=== PATIENT | female | born 1930 | race African-American/Black ===

== ENCOUNTER 2017-09-23 17:41 | Inpatient (IN) | payer MEDICARE, OTHER ==
--- NOTE | 2017-09-23 19:02 | ED Physician Chart ---
ED Chief Complaint/HPI - Patient Information Date Seen:: 09/23/17 Time Seen:: 18:35 Chief Complaint:: Agitation History of Present Illness:: onset x 2 days of agitation; no report of trauma, SIs, H/As, neck pain, C/P, SOB , Abd. Pain, A/N/V/D/C, fevsr, chills, or urinary s/s Allergies:: Allergies Allergy/AdvReac Type Severity Reaction Status Date / Time Penicillins Allergy Verified 09/23/17 18:42 Vitals:: Vital Signs - 8 hr 09/23/17 18:35 Temp 98.3 F HR 62 RR 16 BP 103/48 O2 Sat % 97 Historian:: Patient, EMS Review:: Nurse's Note Reviewed, Old Chart Reviewed, EMS run form Reviewed ED Review of Systems - Review of Systems General/Constitutional: No fever, No chills, No weight loss, No weakness, No diaphoresis, No edema, No loss of appetite Skin: No skin lesions, No rash, No bruising Head: No headache, No light-headedness Eyes: No loss of vision, No pain, No diplopia ENT: No earache, No nasal drainage, No sore throat, No tinnitus Neck: No neck pain, No swelling, No thyromegaly, No stiffness, No mass noted Cardio Vascular: No chest pain, No palpitations, No PND, No orthopnea, No edema Pulmonary: No SOB, No cough, No sputum, No wheezing GI: No nausea, No vomiting, No diarrhea, No pain, No melena, No hematochezia, No constipation, No hematemesis G/U: No dysuria, No frequency, No hematuria, No nacturia 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: No vaginal discharge, No abnormal vaginal bleed, No contraction Musculoskeletal: No bone or joint pain, No back pain, No muscle pain Endocrine: No polyuria, No polydipsia Psychiatric: Prior psych history, Depression, Anxiety, No suicidal ideation, No homicidal ideation, No auditory hallucination, No visual hallucination Hematopoietic: No bruising, No lymphadenopathy Allergic/Immuno: No urticaria, No angioedema Neurological: No syncope, No focal symptoms, No weakness, No paresthesia, No headache, No seizure, No dizziness, No confusion, No vertigo ED Past Medical History - Past Medical History Obtainable: Yes Past Medical History: HTN, Dyslipidemia, Arthritis Family History: HTN Social History: Non Smoker, No Alcohol, No Drug Use, , Care Facility Surgical History: None Psychiatricy History: Depression, Bipolar Medication: Reviewed Family Medical History - Family Member Mother History Unknown: Yes Ethnicity: Non- Living Status: Hx Family Cancer: No Hx Family Coronary Artery Disease: No Hx Family Congestive Heart Failure: No Hx Family Hypertension: No Hx Family Stroke: No Hx Family Diabetes: No Hx Family Seizures: No Hx Family Dementia: No Hx Family AIDS: No Hx Family HIV: No Hx Family COPD: No Hx Family Hepatitis: No Hx Family Psychiatric Problems: No Hx Family Tuberculosis: No ED Physical Exam - Physical Examination General/Constitutional: Awake, Well-developed, well-nourished, Alert, No distress, GCS 15, Non-toxic appearing, Ambulatory Head: Atraumatic Eyes: Lids, conjuctiva normal, PERRL, EOMI Skin: Nl inspection, No rash, No skin lesions, No ecchymosis, Well hydrated, No lymphadenopathy ENMT: External ears, nose nl, TM canals nl, Nasal exam nl, Lips, teeth, gums nl , Oropharynx nl, Tonsils nl Neck: Nontender, Full ROM w/o pain, No JVD, No nuchal rigidity, No bruit, No mass, No stridor Respiratory: Nl effort/Exclusion, Clear to Auscultation, No Wheeze/Rhonchi/Rales Cardio Vascular: RRR, No murmur, gallop, rubs, NL S1 S2, Carotid/Femoral/Distal pulses equal bilaterally GI: No tenderness/rebounding/guarding, No organomegaly, No hernia, Normal BS's, Nondistended, No mass/bruits, No McBurney tenderness : No CVA tenderness Extremities: No tenderness or effusion, Full ROM, normal strength in all extremities, No edema, Normal digits & nails Neuro/Psych: Alert/oriented, DTR's symmetric, Normal sensory exam, Normal motor strength, Judgement/insight normal, Mood normal, Normal gait, No focal deficits Other Neuro/Psych comments:: + Psychomotor Agitation; no SIs; Mood/Affect: Labile Misc: Normal back, No paraspinal tenderness ED Septic Shock - . Is Septic Shock (SBP<90, OR Lactate>4 mmol\L) present?: No - <6hrs of presentation: Vital Signs: Vital Signs - 8 hr 09/23/17 18:35 Temp 98.3 F HR 62 RR 16 BP 103/48 O2 Sat % 97 ED Reassessment (Disposition) - Diagnosis Diagnosis:: Agitation
[2017-09-23 19:23] LABS: % BASOPHILS 0.3 % (0.0-2.0); % EOSINOPHILS 4.4 % (0.0-5.0); % LYMPHOCYTES 27.3 % (20.0-50.0); % MONOCYTES 6.9 % (2.0-10.0); % NEUTROPHILS 61.1 % (40.0-80.0); EOSINOPHILE ABSOLUTE 0.3 Th/cmm (0.1-0.4); HEMATOCRIT 36.7 % (41.0-60); HEMOGLOBIN 12.6 gm/dL (12-16); LYMPHOCYTE ABSOLUTE 1.7 Th/cmm (1.5-3.0); MEAN CELL VOLUME 91.6 fl (81-100); MEAN CORPUSCULAR HEMOGLOBIN 31.4 pg (27.0-31.0); MEAN CORPUSCULAR HGB CONC 34.3 pg (28.0-36.0); MEAN PLATELET VOLUME 8.6 fl; MONOCYTE ABSOLUTE 0.4 Th/cmm (0.3-1.0); NEUTROPHILE ABSOLUTE 3.8 Th/cmm (1.8-8.0); PLATELET COUNT 246 Th/cmm (150-400); RED BLOOD COUNT 4.01 Mil/cmm (3.80-5.20); RED CELL DISTRIBUTION WIDTH 14.1 % (11.5-20.0); WHITE BLOOD COUNT 6.2 Th/cmm (4.8-10.8)
[2017-09-23 19:40] LABS: ACETAMINOPHEN < 10.0 ug/mL (10.0-30.0); ALB/GLOB RATIO 1.1 (1.0-1.8); ALBUMIN 3.6 gm/dL (3.7-5.3); ALKALINE PHOSPHATASE 63 U/L (34-104); ANION GAP 12.7 (7.0-16.0); BILIRUBIN,TOTAL 0.4 mg/dL (0.3-1.0); BUN - UREA NITROGEN 36 mg/dL (7-25); CALCIUM SERUM 9.4 mg/dL (8.6-10.3); CARBON DIOXIDE 23.1 mEq/L (21.0-31.0); CHLORIDE 107 mEq/L (98-107); CHOLESTEROL 197 mg/dL (<200); CREATININE - SERUM 1.4 mg/dL (0.6-1.2); GLUCOSE 140 mg/dL (70-105); HDL -HIGH DENSITY LIPOPROTEIN 43 mg/dL (23-92); POTASSIUM SERUM 4.8 mEq/L (3.5-5.1); SALICYLATES (ASPIRIN) < 25.0 mg/L (30.0-100.0); SGOT 11 U/L (13-39); SGPT/ALT 8 U/L (7-52); SODIUM SERUM 138 mEq/L (136-145); TOTAL PROTEIN,SERUM 6.8 gm/dL (6.0-8.3); TRIGLYCERIDES 94 mg/dL (<150)
[2017-09-23 20:30] LABS: A1C % 5.8 % (4.0-6.0)
[2017-09-23 21:48] VITALS: BP 109/48
[2017-09-23] MEDS ORDERED: Maalox 30 mL Cup PO PRN (21:52)
[2017-09-23] MEDS ORDERED: Magnesium Hydroxide (MOM) 30 mL UDC PO PRN (21:52)
[2017-09-24] MEDS: Aspirin 325 mg EC PO SCH (08:41)
[2017-09-24] MEDS: Multivitamin Tab PO SCH (08:41)
[2017-09-24] MEDS: Escitalopram Oxalate 5 mg Tab PO SCH (11:00)
--- NOTE | 2017-09-24 16:52 | Psychosocial Evaluation ---
DATE OF SERVICE: 09/24/2017 IDENTIFYING DATA: The patient an 87-year-old -[place] woman, resident of [facility]. Information obtained by directly interviewing the patient as well as reviewing the admission papers and they are reliable. JUSTIFICATION FOR HOSPITALIZATION: The patient is admitted here on a voluntary basis in view of her aggressive and disruptive behavior. CHIEF COMPLAINT: "I'm okay now." HISTORY OF PRESENT ILLNESS: This is the one of multiple psychiatric hospitalizations for this patient who is known to me from the previous psychiatric hospitalizations and treatments. The patient was last here in 2016 and the patient has been diagnosed to have psychosis and is being followed up by Dr. Small on an outpatient basis. The patient has been reported to have been doing fairly well, but for the past couple of weeks, the patient has been getting agitated, screaming and yelling. Prior to the hospitalization, the patient has been on Lexapro and Risperdal. The patient's sleep and appetite prior to the hospitalization are reported to be poor. The patient is getting easily agitated. PAST PSYCHIATRIC HISTORY: Please refer to the above. MEDICAL HISTORY: Physical examination is requested to be done by Dr. Duffy. SUBSTANCE ABUSE HISTORY: None. LEGAL PROBLEMS: None at this time. STRENGTH AND ASSETS: The patient is motivated. MENTAL STATUS EXAMINATION: The patient is an 87-year-old woman looking her stated age, thin built, cooperative. Eye contact is poor. Mood is noted to be irritable. Affect is constricted. The patient has been stating that she is okay now, but the patient is reported to have been very agitated and disruptive prior to being in the hospital. The patient has paranoia, but denies any command hallucinations at this time. The patient is having difficult time to cope with the stress. The patient is alert and awake. The patient's short and long-term are noted to be impaired. The patient has been reported to be screaming and yelling and getting easily agitated and could not be contained at a lower level of care. DIAGNOSES: AXIS I: 1. Psychotic disorder, not otherwise specified. 2. 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 AXIS II: None. AXIS III: As per Dr. Duffy. IMMEDIATE TREATMENT PLAN: The patient is going to be observed on the inpatient unit. Provided with supportive psychotherapy. The patient is going to be closely monitored. Will be continued on the antidepressant, antipsychotic medications. ESTIMATED LENGTH OF STAY: 3-5 days. DISCHARGE CRITERIA: When she no longer a threat to self or others and be able to cope up with the stress. JOB# [id number]
--- NOTE | 2017-09-24 17:31 | History and Physical ---
History of Present Illness - HPI Chief Complaint: agitation HPI: This is a 87 year old female who is a jail resident [facility] to the geropsych unit due [facility] the jail. Vital Signs: Last Vital Signs Temp 97.6 F 09/24/17 15:46 Pulse 60 09/24/17 15:46 Resp 20 09/24/17 15:46 BP 138/57 09/24/17 15:46 Pulse Ox 97 09/24/17 15:46 Past Medical History Other History: HTN, Dyslipidemia, Arthritis Family Medical History - Family Member Mother History Unknown: Yes Ethnicity: Non- Living Status: Hx Family Cancer: No Hx Family Coronary Artery Disease: No Hx Family Congestive Heart Failure: No Hx Family Hypertension: No Hx Family Stroke: No Hx Family Diabetes: No Hx Family Seizures: No Hx Family Dementia: No Hx Family AIDS: No Hx Family HIV: No Hx Family COPD: No Hx Family Hepatitis: No Hx Family Psychiatric Problems: No Hx Family Tuberculosis: No Social History Smoke: No Alcohol: None Drugs: None Lives: [facility] - Medications Home Medications: Home Medication Medication Instructions Recorded Type Acetaminophen [Tylenol 8 Hour] 650 mg PO Q4H PRN 04/22/15 History Al Hyd/Mg Hyd/Simethicone [Maalox] 30 ml PO Q4HR PRN 04/22/15 History Bisacodyl [Dulcolax 10 Mg Supp] 10 mg RC DAILY PRN 04/22/15 History Magnesium Hydroxide [Milk of 30 ml PO PRN PRN 04/22/15 History Magnesia] Escitalopram Oxalate [Lexapro] 5 mg PO DAILY #0 tab 12/22/15 Rx Lorazepam [Ativan] 0.5 mg PO Q4H PRN #0 tab 12/22/15 Rx Multivitamin [Theragran] 1 tab PO DAILY #0 12/22/15 Rx Multivitamin [Theragran] 1 tab PO DAILY #0 tab 12/22/15 Rx risperiDONE [RisperDAL] 0.5 mg PO BID #0 12/22/15 Rx Aspirin [Ecotrin] 1 tab PO DAILY 09/23/17 History - Allergies Allergies/Adverse Reactions: Allergies Allergy/AdvReac Type Severity Reaction Status Date / Time Penicillins Allergy Verified 09/23/17 18:42 Review of Systems - Review of Systems Constitutional: Report: No Significant Eyes: Report: No Significant Respiratory: Report: No Significant Cardiovascular: Report: No Significant Neurological: Report: No Significant Physical Exam - Physical Exam HEENT: Report: Ears Nose Throat within normal limits Neck: Report: Within normal limits Cardiovascular Systems: Report: +s1/s2 noted, Regular, Rate and Rhythm Respiratory: Report: Breath Sounds are within normal limits Abdomen: Report: Non-tender to palpation Skin: Report: Color of skin is within normal limits - Lab Results All Lab Results last 24 hours: Laboratory Results - last 24 hr 09/23/17 09/23/17 09/23/17 19:15 19:15 19:15 WBC 6.2 RBC 4.01 Hgb 12.6 Hct 36.7 L MCV 91.6 MCH 31.4 H MCHC Differential 34.3 RDW 14.1 Plt Count 246 MPV 8.6 Neutrophils % 61.1 Lymphocytes % 27.3 Monocytes % 6.9 Eosinophils % 4.4 Basophils % 0.3 Sodium 138 Potassium 4.8 Chloride 107 Carbon Dioxide 23.1 Anion Gap 12.7 BUN 36 H Creatinine 1.4 H Est GFR ( Amer) TNP Est GFR (Non-Af Amer) TNP BUN/Creatinine Ratio 25.7 Glucose 140 H Hemoglobin A1c % 5.8 Calcium 9.4 Total Bilirubin 0.4 AST 11 L ALT 8 Alkaline Phosphatase 63 Total Protein 6.8 Albumin 3.6 L Globulin 3.2 Albumin/Globulin Ratio 1.1 Triglycerides 94 Cholesterol 197 LDL Cholesterol Direct 141 HDL Cholesterol 43 TSH Salicylates < 25.0 L Acetaminophen < 10.0 L Ethyl Alcohol < 10 09/23/17 19:15 WBC RBC Hgb Hct MCV MCH MCHC Differential RDW Plt Count MPV Neutrophils % Lymphocytes % Monocytes % Eosinophils % Basophils % Sodium Potassium Chloride Carbon Dioxide Anion Gap BUN Creatinine Est GFR ( Amer) Est GFR (Non-Af Amer) BUN/Creatinine Ratio Glucose Hemoglobin A1c % Calcium Total Bilirubin AST ALT Alkaline Phosphatase Total Protein Albumin Globulin Albumin/Globulin Ratio Triglycerides Cholesterol LDL Cholesterol Direct HDL Cholesterol TSH 1.36 Salicylates Acetaminophen Ethyl Alcohol - Assessment Assessment: HTN Dyslipidemia agitation Arthritis - Plan Plan: monitor BP continue medications from snf continue current plan of care
[2017-09-25] MEDS: Escitalopram Oxalate 5 mg Tab PO SCH (08:38)
[2017-09-25] MEDS: Multivitamin Tab PO SCH (08:38)
[2017-09-25] MEDS: Aspirin 325 mg EC PO SCH (08:38)
--- NOTE | 2017-09-25 12:37 | Internal Medicine Prog Note ---
Internal Medicine Subjective - Subjective Service Date: 09/25/17 Patient seen and examined:: with staff Patient is:: awake Per staff patient has:: tolerating meds Internal Medicine Objective - Results Result Diagrams: 09/23/17 19:15 09/23/17 19:15 Recent Labs: Laboratory Last Values WBC 6.2 Th/cmm (4.8-10.8) 09/23/17 19:15 RBC 4.01 Mil/cmm (3.80-5.20) 09/23/17 19:15 Hgb 12.6 gm/dL (12-16) 09/23/17 19:15 Hct 36.7 % (41.0-60) L 09/23/17 19:15 MCV 91.6 fl (81-100) 09/23/17 19:15 MCH 31.4 pg (27.0-31.0) H 09/23/17 19:15 MCHC Differential 34.3 pg (28.0-36.0) 09/23/17 19:15 RDW 14.1 % (11.5-20.0) 09/23/17 19:15 Plt Count 246 Th/cmm (150-400) 09/23/17 19:15 MPV 8.6 fl 09/23/17 19:15 Neutrophils % 61.1 % (40.0-80.0) 09/23/17 19:15 Lymphocytes % 27.3 % (20.0-50.0) 09/23/17 19:15 Monocytes % 6.9 % (2.0-10.0) 09/23/17 19:15 Eosinophils % 4.4 % (0.0-5.0) 09/23/17 19:15 Basophils % 0.3 % (0.0-2.0) 09/23/17 19:15 Sodium 138 mEq/L (136-145) 09/23/17 19:15 Potassium 4.8 mEq/L (3.5-5.1) 09/23/17 19:15 Chloride 107 mEq/L (98-107) 09/23/17 19:15 Carbon Dioxide 23.1 mEq/L (21.0-31.0) 09/23/17 19:15 Anion Gap 12.7 (7.0-16.0) 09/23/17 19:15 BUN 36 mg/dL (7-25) H 09/23/17 19:15 Creatinine 1.4 mg/dL (0.6-1.2) H 09/23/17 19:15 Est GFR ( Amer) TNP 09/23/17 19:15 Est GFR (Non-Af Amer) TNP 09/23/17 19:15 BUN/Creatinine Ratio 25.7 09/23/17 19:15 Glucose 140 mg/dL (70-105) H 09/23/17 19:15 Hemoglobin A1c % 5.8 % (4.0-6.0) 09/23/17 19:15 Calcium 9.4 mg/dL (8.6-10.3) 09/23/17 19:15 Total Bilirubin 0.4 mg/dL (0.3-1.0) 09/23/17 19:15 AST 11 U/L (13-39) L 09/23/17 19:15 ALT 8 U/L (7-52) 09/23/17 19:15 Alkaline Phosphatase 63 U/L (34-104) 09/23/17 19:15 Total Protein 6.8 gm/dL (6.0-8.3) 09/23/17 19:15 Albumin 3.6 gm/dL (3.7-5.3) L 09/23/17 19:15 Globulin 3.2 gm/dL 09/23/17 19:15 Albumin/Globulin Ratio 1.1 (1.0-1.8) 09/23/17 19:15 Triglycerides 94 mg/dL (<150) 09/23/17 19:15 Cholesterol 197 mg/dL (<200) 09/23/17 19:15 LDL Cholesterol Direct 141 mg/dL (75-193) 09/23/17 19:15 HDL Cholesterol 43 mg/dL (23-92) 09/23/17 19:15 TSH 1.36 uIU/ml (0.34-5.60) 09/23/17 19:15 Salicylates < 25.0 mg/L (30.0-100.0) L 09/23/17 19:15 Acetaminophen < 10.0 ug/mL (10.0-30.0) L 09/23/17 19:15 Ethyl Alcohol < 10 mg/dL (0-10) 09/23/17 19:15 - Physical Exam Vitals and I&O: Vital Signs Temp 97.8 F 09/25/17 06:41 Pulse 61 09/25/17 06:41 Resp 18 09/25/17 06:41 BP 147/67 09/25/17 06:41 Pulse Ox 96 09/25/17 06:41 Intake & Output 09/24/17 09/25/17 09/25/17 18:59 06:59 18:59 Intake Total 900 120 Balance 900 120 Intake: Oral 900 120 Other: # Voids 2 3 Active Medications: Current Medications Acetaminophen (Tylenol) 650 mg PO Q4H PRN PRN Reason: PAIN Stop: 11/22/17 22:40 Al Hydrox/Mg Hydrox/Simethicone (Maalox) 30 ml PO Q4HR PRN PRN Reason: GI DISTRESS Stop: 11/22/17 21:51 Aspirin (Ecotrin) 325 mg PO DAILY RAHEEM Stop: 11/23/17 08:59 Last Admin: 09/25/17 08:38 Dose: Not Given Bisacodyl (Dulcolax 10 Mg Supp) 10 mg RC DAILY PRN PRN Reason: Constipation Stop: 11/22/17 21:51 Escitalopram Oxalate (Lexapro) 5 mg PO DAILY RAHEEM; Protocol Stop: 11/23/17 08:59 Last Admin: 09/25/17 08:38 Dose: Not Given Lorazepam (Ativan) 0.5 mg PO Q4H PRN; Protocol PRN Reason: Anxiety Stop: 11/22/17 21:51 Magnesium Hydroxide (Milk Of Magnesia) 30 ml PO DAILY PRN PRN Reason: Constipation Stop: 11/22/17 21:51 Multivitamins/Vitamin C (Theragran) 1 tab PO DAILY RAHEEM Stop: 11/23/17 08:59 Last Admin: 09/25/17 08:38 Dose: Not Given Risperidone (Risperdal) 0.5 mg PO BID RAHEEM; Protocol Stop: 11/23/17 08:59 Last Admin: 09/25/17 08:38 Dose: Not Given Zolpidem Tartrate (Ambien) 5 mg PO HS PRN PRN Reason: Insomnia Stop: 11/22/17 22:00 General: alert HEENT: NC/AT, PERRLA Neck: Supple Lungs: CTAB - Procedures Procedures: Procedures Procedure Code Date GROUP PSYCHOTHERAPY 58911 02/28/15 GROUP PSYCHOTHERAPY GZHZZZZ 02/28/15 Internal Medicine Assmt/Plan - Assessment Assessment: HTN Dyslipidemia agitation Arthritis - Plan Plan: monitor BP continue medications from snf continue current plan of care
--- NOTE | 2017-09-25 13:22 | Progress Notes ---
DATE: 09/25/2017 PSYCHIATRIC PROGRESS NOTE Staff was spoken to. The patient is interviewed. Mood is irritable. Affect is constricted. Insight and judgment are noted to be still impaired. Impulse control seems to be limited. The patient has been ____ stress. No side effects to the medications are noted and the patient at this time is being closely monitored for any side effects from the medication. The patient continues to have paranoia and gets easily agitated. In view of the depression, the patient has been placed on 5 mg of Lexapro. The patient is currently on 0.5 mg of Risperdal. So far, the patient has been able to tolerate the medications, no side effects to the medications are noted. PLAN: To continue the patient with the current medications and followup. JOB# [id number]
[2017-09-26] MEDS: Escitalopram Oxalate 5 mg Tab PO SCH (09:00)
[2017-09-26] MEDS: Multivitamin Tab PO SCH (09:00)
[2017-09-26] MEDS: Aspirin 325 mg EC PO SCH (09:30)
--- NOTE | 2017-09-26 10:06 | Internal Medicine Prog Note ---
Internal Medicine Subjective - Subjective Service Date: 09/26/17 Patient seen and examined:: with staff Patient is:: awake Per staff patient has:: tolerating meds Internal Medicine Objective - Results Result Diagrams: 09/23/17 19:15 09/23/17 19:15 Recent Labs: Laboratory Last Values WBC 6.2 Th/cmm (4.8-10.8) 09/23/17 19:15 RBC 4.01 Mil/cmm (3.80-5.20) 09/23/17 19:15 Hgb 12.6 gm/dL (12-16) 09/23/17 19:15 Hct 36.7 % (41.0-60) L 09/23/17 19:15 MCV 91.6 fl (81-100) 09/23/17 19:15 MCH 31.4 pg (27.0-31.0) H 09/23/17 19:15 MCHC Differential 34.3 pg (28.0-36.0) 09/23/17 19:15 RDW 14.1 % (11.5-20.0) 09/23/17 19:15 Plt Count 246 Th/cmm (150-400) 09/23/17 19:15 MPV 8.6 fl 09/23/17 19:15 Neutrophils % 61.1 % (40.0-80.0) 09/23/17 19:15 Lymphocytes % 27.3 % (20.0-50.0) 09/23/17 19:15 Monocytes % 6.9 % (2.0-10.0) 09/23/17 19:15 Eosinophils % 4.4 % (0.0-5.0) 09/23/17 19:15 Basophils % 0.3 % (0.0-2.0) 09/23/17 19:15 Sodium 138 mEq/L (136-145) 09/23/17 19:15 Potassium 4.8 mEq/L (3.5-5.1) 09/23/17 19:15 Chloride 107 mEq/L (98-107) 09/23/17 19:15 Carbon Dioxide 23.1 mEq/L (21.0-31.0) 09/23/17 19:15 Anion Gap 12.7 (7.0-16.0) 09/23/17 19:15 BUN 36 mg/dL (7-25) H 09/23/17 19:15 Creatinine 1.4 mg/dL (0.6-1.2) H 09/23/17 19:15 Est GFR ( Amer) TNP 09/23/17 19:15 Est GFR (Non-Af Amer) TNP 09/23/17 19:15 BUN/Creatinine Ratio 25.7 09/23/17 19:15 Glucose 140 mg/dL (70-105) H 09/23/17 19:15 Hemoglobin A1c % 5.8 % (4.0-6.0) 09/23/17 19:15 Calcium 9.4 mg/dL (8.6-10.3) 09/23/17 19:15 Total Bilirubin 0.4 mg/dL (0.3-1.0) 09/23/17 19:15 AST 11 U/L (13-39) L 09/23/17 19:15 ALT 8 U/L (7-52) 09/23/17 19:15 Alkaline Phosphatase 63 U/L (34-104) 09/23/17 19:15 Total Protein 6.8 gm/dL (6.0-8.3) 09/23/17 19:15 Albumin 3.6 gm/dL (3.7-5.3) L 09/23/17 19:15 Globulin 3.2 gm/dL 09/23/17 19:15 Albumin/Globulin Ratio 1.1 (1.0-1.8) 09/23/17 19:15 Triglycerides 94 mg/dL (<150) 09/23/17 19:15 Cholesterol 197 mg/dL (<200) 09/23/17 19:15 LDL Cholesterol Direct 141 mg/dL (75-193) 09/23/17 19:15 HDL Cholesterol 43 mg/dL (23-92) 09/23/17 19:15 TSH 1.36 uIU/ml (0.34-5.60) 09/23/17 19:15 Salicylates < 25.0 mg/L (30.0-100.0) L 09/23/17 19:15 Acetaminophen < 10.0 ug/mL (10.0-30.0) L 09/23/17 19:15 Ethyl Alcohol < 10 mg/dL (0-10) 09/23/17 19:15 - Physical Exam Vitals and I&O: Vital Signs Temp 97.3 F 09/26/17 06:38 Pulse 60 09/26/17 06:38 Resp 19 09/26/17 06:38 BP 133/64 09/26/17 06:38 Pulse Ox 98 09/26/17 06:38 Intake & Output 09/25/17 09/26/17 09/26/17 18:59 06:59 18:59 Intake Total 300 Balance 300 Intake: Oral 300 Other: # Voids 2 # Bowel Movements 0 Active Medications: Current Medications Acetaminophen (Tylenol) 650 mg PO Q4H PRN PRN Reason: PAIN Stop: 11/22/17 22:40 Al Hydrox/Mg Hydrox/Simethicone (Maalox) 30 ml PO Q4HR PRN PRN Reason: GI DISTRESS Stop: 11/22/17 21:51 Aspirin (Ecotrin) 325 mg PO DAILY RAHEEM Stop: 11/23/17 08:59 Last Admin: 09/25/17 08:38 Dose: Not Given Bisacodyl (Dulcolax 10 Mg Supp) 10 mg RC DAILY PRN PRN Reason: Constipation Stop: 11/22/17 21:51 Escitalopram Oxalate (Lexapro) 5 mg PO DAILY RAHEEM; Protocol Stop: 11/23/17 08:59 Last Admin: 09/25/17 08:38 Dose: Not Given Lorazepam (Ativan) 0.5 mg PO Q4H PRN; Protocol PRN Reason: Anxiety Stop: 11/22/17 21:51 Magnesium Hydroxide (Milk Of Magnesia) 30 ml PO DAILY PRN PRN Reason: Constipation Stop: 11/22/17 21:51 Multivitamins/Vitamin C (Theragran) 1 tab PO DAILY RAHEEM Stop: 11/23/17 08:59 Last Admin: 09/25/17 08:38 Dose: Not Given Risperidone (Risperdal) 0.5 mg PO BID RAHEEM; Protocol Stop: 11/23/17 08:59 Last Admin: 09/25/17 17:03 Dose: Not Given Zolpidem Tartrate (Ambien) 5 mg PO HS PRN PRN Reason: Insomnia Stop: 11/22/17 22:00 General: alert HEENT: NC/AT, PERRLA Neck: Supple Lungs: CTAB - Procedures Procedures: Procedures Procedure Code Date GROUP PSYCHOTHERAPY 15691 02/28/15 GROUP PSYCHOTHERAPY GZHZZZZ 02/28/15 Internal Medicine Assmt/Plan - Assessment Assessment: HTN Dyslipidemia agitation Arthritis - Plan Plan: monitor BP , will adjust accordingly continue current plan of care
--- NOTE | 2017-09-26 23:59 | Progress Notes ---
DATE: 09/26/2017 SUBJECTIVE: Staff was spoken to. The patient is interviewed. Mood is noted to be irritable. Affect is constricted. The patient's insight and judgment are noted to be still impaired. Impulse control seems to be limited. Coping skills are noted to be limited. The patient has been isolative and withdrawn at this time. ASSESSMENT: The patient is still impulsive. PLAN: To continue the patient with supportive therapy. The patient is currently on Risperdal and escitalopram and has been able to tolerate the medications. No side effects to the medications are noted. Plan is to continue the patient with current medications and follow up. JOB# [id number]
[2017-09-27] MEDS: Aspirin 325 mg EC PO SCH (09:08)
[2017-09-27] MEDS: Escitalopram Oxalate 5 mg Tab PO SCH (09:09)
[2017-09-27] MEDS: Multivitamin Tab PO SCH (09:09)
--- NOTE | 2017-09-27 13:59 | Internal Medicine Prog Note ---
Internal Medicine Subjective - Subjective Service Date: 09/27/17 Patient is:: awake Per staff patient has:: tolerating meds Internal Medicine Objective - Results Result Diagrams: 09/23/17 19:15 09/23/17 19:15 Recent Labs: Laboratory Last Values WBC 6.2 Th/cmm (4.8-10.8) 09/23/17 19:15 RBC 4.01 Mil/cmm (3.80-5.20) 09/23/17 19:15 Hgb 12.6 gm/dL (12-16) 09/23/17 19:15 Hct 36.7 % (41.0-60) L 09/23/17 19:15 MCV 91.6 fl (81-100) 09/23/17 19:15 MCH 31.4 pg (27.0-31.0) H 09/23/17 19:15 MCHC Differential 34.3 pg (28.0-36.0) 09/23/17 19:15 RDW 14.1 % (11.5-20.0) 09/23/17 19:15 Plt Count 246 Th/cmm (150-400) 09/23/17 19:15 MPV 8.6 fl 09/23/17 19:15 Neutrophils % 61.1 % (40.0-80.0) 09/23/17 19:15 Lymphocytes % 27.3 % (20.0-50.0) 09/23/17 19:15 Monocytes % 6.9 % (2.0-10.0) 09/23/17 19:15 Eosinophils % 4.4 % (0.0-5.0) 09/23/17 19:15 Basophils % 0.3 % (0.0-2.0) 09/23/17 19:15 Sodium 138 mEq/L (136-145) 09/23/17 19:15 Potassium 4.8 mEq/L (3.5-5.1) 09/23/17 19:15 Chloride 107 mEq/L (98-107) 09/23/17 19:15 Carbon Dioxide 23.1 mEq/L (21.0-31.0) 09/23/17 19:15 Anion Gap 12.7 (7.0-16.0) 09/23/17 19:15 BUN 36 mg/dL (7-25) H 09/23/17 19:15 Creatinine 1.4 mg/dL (0.6-1.2) H 09/23/17 19:15 Est GFR ( Amer) TNP 09/23/17 19:15 Est GFR (Non-Af Amer) TNP 09/23/17 19:15 BUN/Creatinine Ratio 25.7 09/23/17 19:15 Glucose 140 mg/dL (70-105) H 09/23/17 19:15 Hemoglobin A1c % 5.8 % (4.0-6.0) 09/23/17 19:15 Calcium 9.4 mg/dL (8.6-10.3) 09/23/17 19:15 Total Bilirubin 0.4 mg/dL (0.3-1.0) 09/23/17 19:15 AST 11 U/L (13-39) L 09/23/17 19:15 ALT 8 U/L (7-52) 09/23/17 19:15 Alkaline Phosphatase 63 U/L (34-104) 09/23/17 19:15 Total Protein 6.8 gm/dL (6.0-8.3) 09/23/17 19:15 Albumin 3.6 gm/dL (3.7-5.3) L 09/23/17 19:15 Globulin 3.2 gm/dL 09/23/17 19:15 Albumin/Globulin Ratio 1.1 (1.0-1.8) 09/23/17 19:15 Triglycerides 94 mg/dL (<150) 09/23/17 19:15 Cholesterol 197 mg/dL (<200) 09/23/17 19:15 LDL Cholesterol Direct 141 mg/dL (75-193) 09/23/17 19:15 HDL Cholesterol 43 mg/dL (23-92) 09/23/17 19:15 TSH 1.36 uIU/ml (0.34-5.60) 09/23/17 19:15 Salicylates < 25.0 mg/L (30.0-100.0) L 09/23/17 19:15 Acetaminophen < 10.0 ug/mL (10.0-30.0) L 09/23/17 19:15 Ethyl Alcohol < 10 mg/dL (0-10) 09/23/17 19:15 - Physical Exam Vitals and I&O: Vital Signs Temp 96.7 F 09/27/17 06:08 Pulse 60 09/27/17 06:08 Resp 20 09/27/17 06:08 BP 145/61 09/27/17 06:08 Pulse Ox 99 09/27/17 06:08 Intake & Output 09/26/17 09/27/17 09/27/17 18:59 06:59 18:59 Intake Total 650 240 Output Total 1 Balance 650 239 Intake: Oral 650 240 Output: Stool 1 Other: # Voids 3 2 # Bowel Movements 1 1 Active Medications: Current Medications Acetaminophen (Tylenol) 650 mg PO Q4H PRN PRN Reason: PAIN Stop: 11/22/17 22:40 Al Hydrox/Mg Hydrox/Simethicone (Maalox) 30 ml PO Q4HR PRN PRN Reason: GI DISTRESS Stop: 11/22/17 21:51 Aspirin (Ecotrin) 325 mg PO DAILY RAHEEM Stop: 11/23/17 08:59 Last Admin: 09/27/17 09:08 Dose: Not Given Bisacodyl (Dulcolax 10 Mg Supp) 10 mg RC DAILY PRN PRN Reason: Constipation Stop: 11/22/17 21:51 Escitalopram Oxalate (Lexapro) 5 mg PO DAILY RAHEEM; Protocol Stop: 11/23/17 08:59 Last Admin: 09/27/17 09:09 Dose: 5 mg Lorazepam (Ativan) 0.5 mg PO Q4H PRN; Protocol PRN Reason: Anxiety Stop: 11/22/17 21:51 Magnesium Hydroxide (Milk Of Magnesia) 30 ml PO DAILY PRN PRN Reason: Constipation Stop: 11/22/17 21:51 Multivitamins/Vitamin C (Theragran) 1 tab PO DAILY RAHEEM Stop: 11/23/17 08:59 Last Admin: 09/27/17 09:09 Dose: 1 tab Risperidone (Risperdal) 0.5 mg PO BID RAHEEM; Protocol Stop: 11/23/17 08:59 Last Admin: 09/27/17 09:09 Dose: Not Given Zolpidem Tartrate (Ambien) 5 mg PO HS PRN PRN Reason: Insomnia Stop: 11/22/17 22:00 General: alert HEENT: NC/AT, PERRLA Neck: Supple Lungs: CTAB - Procedures Procedures: Procedures Procedure Code Date GROUP PSYCHOTHERAPY 51846 02/28/15 GROUP PSYCHOTHERAPY GZHZZZZ 02/28/15 Internal Medicine Assmt/Plan - Assessment Assessment: HTN Dyslipidemia agitation Arthritis - Plan Plan: monitor BP , will adjust accordingly continue current plan of care
--- NOTE | 2017-09-27 16:39 | Consultation ---
DATE OF CONSULTATION: 09/26/2017 REFERRING PHYSICIAN: Charli Herman M.D. TYPE OF CONSULTATION: Psychology. HISTORY OF PRESENT ILLNESS: The patient is an 87-year-old -[place] female. The patient is a resident of [facility]. The following is by record review and by patient's self-report. The patient is being admitted due to aggressive behavior. According to the staff at the patient's facility, the patient had become agitated with screaming and yelling episodes. The patient is known to this senior technical writer from her previous hospitalization here. The patient did not report any suicidal ideation, plan or intention. The patient is easily agitated and difficult to get the patient to respond to the clinical interview questions. This clinical assessment will be continued. PAST MEDICAL HISTORY: Please see history and physical by Dr. Duffy. PAST PSYCHIATRIC HISTORY: The patient has a history of psychotic disorder, not otherwise specified. The patient has been under the care of a psychiatrist at her correction facility. SUBSTANCE ABUSE HISTORY: None. PSYCHOSOCIAL HISTORY: The patient did not answer questions about occupational or educational history or episcopal affiliation. The patient denied any history of physical or sexual abuse. The patient states no legal issues at this time. MENTAL STATUS EXAMINATION: The patient appears to be her stated age. The patient's attitude is cooperative. Eye contact is poor. Speech is loud and intermittently yelling. Mood is irritable. Affect is constricted. The patient's behavior is easily agitated and impulsive with verbal outbursts. Thought process shows to be confused. The patient denied any auditory or visual hallucinations; however, there is evidence that the patient has paranoid ideation. The patient was unable to repeat 3 items given to her the first time. The patient was unable to give milestones. Immediate, short-term and long-term memory appear to be impaired. Concentration is poor. Impulse control is inadequate. The patient is disruptive during the clinical interview. The patient is highly distractible. The patient's sensorium is alert and oriented to self only. The patient did not participate in the interpretation of proverbs. Insight is impaired. Judgment is impaired. DIAGNOSTIC IMPRESSION: AXIS I: 1. History of psychotic disorder, not otherwise specified. 2. Dementia with behavioral disturbance. AXIS II: Deferred. AXIS III: Please see history and physical by Dr. Duffy. TREATMENT PLAN: The patient has been seen by Dr. Herman for psychiatric evaluation and for the management of the patient's psychotropic medications. We will provide supportive psychotherapy to include a simple de-escalation skill as well as motivational enhancement for the patient to become compliant and stay compliant with all aspects of her care and treatment. We will provide limit setting as well as cognitive and behavioral redirection. We will provide coping strategies for phase of life issues. We will provide reality orientation, reality differentiation and reality integration. We will encourage the patient to be able to demonstrate emotional self-regulation prior to her discharge. Thank you, Dr. Herman for this consult and the opportunity to participate with you in this patient's care. JOB# [id number] SOFIA
--- NOTE | 2017-09-27 22:40 | Progress Notes ---
DATE: 09/27/2017 PSYCHIATRIC PROGRESS NOTE SUBJECTIVE: Staff was spoken to. The patient is interviewed. Mood is noted to be depressed. Affect is constricted. The patient's coping skills at this time are noted to be very poor. Insight and judgment also noted to be very much impaired. The patient has been having difficult time to cope with the stress. The patient is refusing to eat. ASSESSMENT: The patient is still demented and depressed. PLAN: To continue the patient with the current medications. I encouraged the patient to verbalize the concerns rather than to act out. JOB# [id number]
[2017-09-28] MEDS: Aspirin 325 mg EC PO SCH (12:53)
[2017-09-28] MEDS: Multivitamin Tab PO SCH (12:53)
[2017-09-28] MEDS: Escitalopram Oxalate 5 mg Tab PO SCH (12:53)
--- NOTE | 2017-09-28 15:45 | Internal Medicine Prog Note ---
Internal Medicine Subjective - Subjective Service Date: 09/28/17 Patient is:: awake Per staff patient has:: tolerating meds Internal Medicine Objective - Results Result Diagrams: 09/23/17 19:15 09/23/17 19:15 Recent Labs: Laboratory Last Values WBC 6.2 Th/cmm (4.8-10.8) 09/23/17 19:15 RBC 4.01 Mil/cmm (3.80-5.20) 09/23/17 19:15 Hgb 12.6 gm/dL (12-16) 09/23/17 19:15 Hct 36.7 % (41.0-60) L 09/23/17 19:15 MCV 91.6 fl (81-100) 09/23/17 19:15 MCH 31.4 pg (27.0-31.0) H 09/23/17 19:15 MCHC Differential 34.3 pg (28.0-36.0) 09/23/17 19:15 RDW 14.1 % (11.5-20.0) 09/23/17 19:15 Plt Count 246 Th/cmm (150-400) 09/23/17 19:15 MPV 8.6 fl 09/23/17 19:15 Neutrophils % 61.1 % (40.0-80.0) 09/23/17 19:15 Lymphocytes % 27.3 % (20.0-50.0) 09/23/17 19:15 Monocytes % 6.9 % (2.0-10.0) 09/23/17 19:15 Eosinophils % 4.4 % (0.0-5.0) 09/23/17 19:15 Basophils % 0.3 % (0.0-2.0) 09/23/17 19:15 Sodium 138 mEq/L (136-145) 09/23/17 19:15 Potassium 4.8 mEq/L (3.5-5.1) 09/23/17 19:15 Chloride 107 mEq/L (98-107) 09/23/17 19:15 Carbon Dioxide 23.1 mEq/L (21.0-31.0) 09/23/17 19:15 Anion Gap 12.7 (7.0-16.0) 09/23/17 19:15 BUN 36 mg/dL (7-25) H 09/23/17 19:15 Creatinine 1.4 mg/dL (0.6-1.2) H 09/23/17 19:15 Est GFR ( Amer) TNP 09/23/17 19:15 Est GFR (Non-Af Amer) TNP 09/23/17 19:15 BUN/Creatinine Ratio 25.7 09/23/17 19:15 Glucose 140 mg/dL (70-105) H 09/23/17 19:15 Hemoglobin A1c % 5.8 % (4.0-6.0) 09/23/17 19:15 Calcium 9.4 mg/dL (8.6-10.3) 09/23/17 19:15 Total Bilirubin 0.4 mg/dL (0.3-1.0) 09/23/17 19:15 AST 11 U/L (13-39) L 09/23/17 19:15 ALT 8 U/L (7-52) 09/23/17 19:15 Alkaline Phosphatase 63 U/L (34-104) 09/23/17 19:15 Total Protein 6.8 gm/dL (6.0-8.3) 09/23/17 19:15 Albumin 3.6 gm/dL (3.7-5.3) L 09/23/17 19:15 Globulin 3.2 gm/dL 09/23/17 19:15 Albumin/Globulin Ratio 1.1 (1.0-1.8) 09/23/17 19:15 Triglycerides 94 mg/dL (<150) 09/23/17 19:15 Cholesterol 197 mg/dL (<200) 09/23/17 19:15 LDL Cholesterol Direct 141 mg/dL (75-193) 09/23/17 19:15 HDL Cholesterol 43 mg/dL (23-92) 09/23/17 19:15 TSH 1.36 uIU/ml (0.34-5.60) 09/23/17 19:15 Salicylates < 25.0 mg/L (30.0-100.0) L 09/23/17 19:15 Acetaminophen < 10.0 ug/mL (10.0-30.0) L 09/23/17 19:15 Ethyl Alcohol < 10 mg/dL (0-10) 09/23/17 19:15 - Physical Exam Vitals and I&O: Vital Signs Temp 98.3 F 09/28/17 15:20 Pulse 88 09/28/17 15:20 Resp 18 09/28/17 15:20 BP 141/65 09/28/17 15:20 Pulse Ox 97 09/28/17 15:20 Intake & Output 09/27/17 09/28/17 09/28/17 18:59 06:59 18:59 Intake Total 360 240 Balance 360 240 Intake: Oral 360 240 Other: # Voids 1 2 # Bowel Movements 1 Active Medications: Current Medications Acetaminophen (Tylenol) 650 mg PO Q4H PRN PRN Reason: PAIN Stop: 11/22/17 22:40 Al Hydrox/Mg Hydrox/Simethicone (Maalox) 30 ml PO Q4HR PRN PRN Reason: GI DISTRESS Stop: 11/22/17 21:51 Aspirin (Ecotrin) 325 mg PO DAILY RAHEEM Stop: 11/23/17 08:59 Last Admin: 09/28/17 12:53 Dose: 325 mg Bisacodyl (Dulcolax 10 Mg Supp) 10 mg RC DAILY PRN PRN Reason: Constipation Stop: 11/22/17 21:51 Escitalopram Oxalate (Lexapro) 5 mg PO DAILY RAHEEM; Protocol Stop: 11/23/17 08:59 Last Admin: 09/28/17 12:53 Dose: 5 mg Lorazepam (Ativan) 0.5 mg PO Q4H PRN; Protocol PRN Reason: Anxiety Stop: 11/22/17 21:51 Magnesium Hydroxide (Milk Of Magnesia) 30 ml PO DAILY PRN PRN Reason: Constipation Stop: 11/22/17 21:51 Multivitamins/Vitamin C (Theragran) 1 tab PO DAILY RAHEEM Stop: 11/23/17 08:59 Last Admin: 09/28/17 12:53 Dose: Not Given Risperidone (Risperdal) 0.5 mg PO BID RAHEEM; Protocol Stop: 11/23/17 08:59 Last Admin: 09/28/17 12:53 Dose: 0.5 mg Zolpidem Tartrate (Ambien) 5 mg PO HS PRN PRN Reason: Insomnia Stop: 11/22/17 22:00 Last Admin: 09/27/17 21:21 Dose: 5 mg General: alert HEENT: NC/AT, PERRLA Neck: Supple Lungs: CTAB - Procedures Procedures: Procedures Procedure Code Date GROUP PSYCHOTHERAPY 80976 02/28/15 GROUP PSYCHOTHERAPY GZHZZZZ 02/28/15 Internal Medicine Assmt/Plan - Assessment Assessment: HTN Dyslipidemia agitation Arthritis - Plan Plan: monitor BP , will adjust accordingly continue current plan of care Nutritional Asmnt/Malnutr-PDOC - Dietary Evaluation Malnutrition Findings (Please click <Entered> for more info): Nutritional Asmnt/Malnutrition Start: 09/27/17 13: 47 Text: Status: Complete Freq: Protocol: Document 09/27/17 13:47 LCHENG (Rec: 09/27/17 14:02 LCHENG [email or web address]) Nutritional Asmnt/Malnutrition Patient General Information Nutritional Screening Moderate Risk Diagnosis psychosis NOS Pertinent Medical Hx/Surgical Hx HTN, dyslipidemia, arthritis Subjective Information Pt seen sleeping in room at time of visit. Per EMR, PO intake 50-75% of meals. Current Diet Order/ Nutrition Support mech soft chopped MOLLY Pertinent Medications theragran Pertinent Labs 09/23 BUN 36, Cr 1.4, glucose 140, A1c 5.8 Nutritional Hx/Data Height 5 ft 2 in Height (Calculated Centimeters) 157.5 Current Weight (lbs) 119 lb Weight (Calculated Kilograms) 54.0 Weight (Calculated Grams) 12487.5 [place] Body Weight 110 Body Mass Index (BMI) 21.7 Weight Status Approriate GI Symptoms GI Symptoms None Last BM 6 Difficult in: None Skin Integrity/Comment: intact Current %PO Fair (50-74%) Estimated Nutritional Goals BEE in Kcals: Using Current wt Calories/Kcals/Kg 25-30 Kcals Calculated 9798-4254 Protein: Using Current wt Protein g/k Protein Calculated 53 Fluid: ml 1350-1560ml (1ml/kcal) Nutritional Problem No current Nutrition Prob Problem N/A Malnutrition Alert Is there a minimum of two criteria No selected? Query Text:Check all the applicable criteria. A minimum of two criteria are recommended for diagnosis of either severe or non-severe malnutrition. Malnutrition Related to Morbid Obesity Malnutrition related to morbid obesity No Intervention/Recommendation Comments 1. Continue with mech soft chopped MOLLY diet as ordered. 2. Monitor PO intake, wt, labs and skin integrity 3. F/U as low risk in 7 days, 10/04, PO check 09/30 Expected Outcomes/Goals Expected Outcomes/Goals 1. PO intake to meet at least 75% of nutritional needs. 2. Wt stability, skin to remain intact, labs to approach WNL.
--- NOTE | 2017-09-28 22:02 | Progress Notes ---
DATE: 09/28/2017 PSYCHIATRIC PROGRESS NOTE SUBJECTIVE: Staff was spoken to. The patient is interviewed. Mood is noted to be irritable. Affect is constricted. Continues to be angry and upset. The patient is stating that the patient's sleep and appetite are noted to be poor at this time. The patient is reluctant to comply with any of the request the staff are making. The patient is isolative and withdrawn. ASSESSMENT: The patient is still psychotic and demented. PLAN: To continue the patient with the low dose of the Risperdal and follow the patient up. JOB# [id number]
[2017-09-29] MEDS: Aspirin 325 mg EC PO SCH (12:00)
[2017-09-29] MEDS: Escitalopram Oxalate 5 mg Tab PO SCH (12:00)
--- NOTE | 2017-09-29 14:44 | Internal Medicine Prog Note ---
Internal Medicine Subjective - Subjective Service Date: 09/29/17 Patient is:: awake Per staff patient has:: tolerating meds Internal Medicine Objective - Results Result Diagrams: 09/23/17 19:15 09/23/17 19:15 Recent Labs: Laboratory Last Values WBC 6.2 Th/cmm (4.8-10.8) 09/23/17 19:15 RBC 4.01 Mil/cmm (3.80-5.20) 09/23/17 19:15 Hgb 12.6 gm/dL (12-16) 09/23/17 19:15 Hct 36.7 % (41.0-60) L 09/23/17 19:15 MCV 91.6 fl (81-100) 09/23/17 19:15 MCH 31.4 pg (27.0-31.0) H 09/23/17 19:15 MCHC Differential 34.3 pg (28.0-36.0) 09/23/17 19:15 RDW 14.1 % (11.5-20.0) 09/23/17 19:15 Plt Count 246 Th/cmm (150-400) 09/23/17 19:15 MPV 8.6 fl 09/23/17 19:15 Neutrophils % 61.1 % (40.0-80.0) 09/23/17 19:15 Lymphocytes % 27.3 % (20.0-50.0) 09/23/17 19:15 Monocytes % 6.9 % (2.0-10.0) 09/23/17 19:15 Eosinophils % 4.4 % (0.0-5.0) 09/23/17 19:15 Basophils % 0.3 % (0.0-2.0) 09/23/17 19:15 Sodium 138 mEq/L (136-145) 09/23/17 19:15 Potassium 4.8 mEq/L (3.5-5.1) 09/23/17 19:15 Chloride 107 mEq/L (98-107) 09/23/17 19:15 Carbon Dioxide 23.1 mEq/L (21.0-31.0) 09/23/17 19:15 Anion Gap 12.7 (7.0-16.0) 09/23/17 19:15 BUN 36 mg/dL (7-25) H 09/23/17 19:15 Creatinine 1.4 mg/dL (0.6-1.2) H 09/23/17 19:15 Est GFR ( Amer) TNP 09/23/17 19:15 Est GFR (Non-Af Amer) TNP 09/23/17 19:15 BUN/Creatinine Ratio 25.7 09/23/17 19:15 Glucose 140 mg/dL (70-105) H 09/23/17 19:15 Hemoglobin A1c % 5.8 % (4.0-6.0) 09/23/17 19:15 Calcium 9.4 mg/dL (8.6-10.3) 09/23/17 19:15 Total Bilirubin 0.4 mg/dL (0.3-1.0) 09/23/17 19:15 AST 11 U/L (13-39) L 09/23/17 19:15 ALT 8 U/L (7-52) 09/23/17 19:15 Alkaline Phosphatase 63 U/L (34-104) 09/23/17 19:15 Total Protein 6.8 gm/dL (6.0-8.3) 09/23/17 19:15 Albumin 3.6 gm/dL (3.7-5.3) L 09/23/17 19:15 Globulin 3.2 gm/dL 09/23/17 19:15 Albumin/Globulin Ratio 1.1 (1.0-1.8) 09/23/17 19:15 Triglycerides 94 mg/dL (<150) 09/23/17 19:15 Cholesterol 197 mg/dL (<200) 09/23/17 19:15 LDL Cholesterol Direct 141 mg/dL (75-193) 09/23/17 19:15 HDL Cholesterol 43 mg/dL (23-92) 09/23/17 19:15 TSH 1.36 uIU/ml (0.34-5.60) 09/23/17 19:15 Salicylates < 25.0 mg/L (30.0-100.0) L 09/23/17 19:15 Acetaminophen < 10.0 ug/mL (10.0-30.0) L 09/23/17 19:15 Ethyl Alcohol < 10 mg/dL (0-10) 09/23/17 19:15 - Physical Exam Vitals and I&O: Vital Signs Temp 97.3 F 09/29/17 06:25 Pulse 71 09/29/17 06:25 Resp 19 09/29/17 06:25 BP 135/70 09/29/17 06:25 Pulse Ox 99 09/29/17 06:25 Intake & Output 09/28/17 09/29/17 09/29/17 18:59 06:59 18:59 Intake Total 480 450 Balance 480 450 Intake: Oral 480 450 Other: # Voids 2 2 # Bowel Movements 0 Active Medications: Current Medications Acetaminophen (Tylenol) 650 mg PO Q4H PRN PRN Reason: PAIN Stop: 11/22/17 22:40 Al Hydrox/Mg Hydrox/Simethicone (Maalox) 30 ml PO Q4HR PRN PRN Reason: GI DISTRESS Stop: 11/22/17 21:51 Aspirin (Ecotrin) 325 mg PO DAILY RAHEEM Stop: 11/23/17 08:59 Last Admin: 09/28/17 12:53 Dose: 325 mg Bisacodyl (Dulcolax 10 Mg Supp) 10 mg RC DAILY PRN PRN Reason: Constipation Stop: 11/22/17 21:51 Escitalopram Oxalate (Lexapro) 5 mg PO DAILY RAHEEM; Protocol Stop: 11/23/17 08:59 Last Admin: 09/28/17 12:53 Dose: 5 mg Lorazepam (Ativan) 0.5 mg PO Q4H PRN; Protocol PRN Reason: Anxiety Stop: 11/22/17 21:51 Magnesium Hydroxide (Milk Of Magnesia) 30 ml PO DAILY PRN PRN Reason: Constipation Stop: 11/22/17 21:51 Multivitamins/Vitamin C (Theragran) 1 tab PO DAILY RAHEEM Stop: 11/23/17 08:59 Last Admin: 09/28/17 12:53 Dose: Not Given Risperidone (Risperdal) 0.5 mg PO BID RAHEEM; Protocol Stop: 11/23/17 08:59 Last Admin: 09/28/17 12:53 Dose: 0.5 mg Zolpidem Tartrate (Ambien) 5 mg PO HS PRN PRN Reason: Insomnia Stop: 11/22/17 22:00 Last Admin: 09/27/17 21:21 Dose: 5 mg General: alert HEENT: NC/AT, PERRLA Neck: Supple Lungs: CTAB - Procedures Procedures: Procedures Procedure Code Date GROUP PSYCHOTHERAPY 90366 02/28/15 GROUP PSYCHOTHERAPY GZHZZZZ 02/28/15 Internal Medicine Assmt/Plan - Assessment Assessment: HTN Dyslipidemia agitation Arthritis - Plan Plan: monitor BP , will adjust accordingly continue current plan of care Nutritional Asmnt/Malnutr-PDOC - Dietary Evaluation Malnutrition Findings (Please click <Entered> for more info): Nutritional Asmnt/Malnutrition Start: 09/27/17 13: 47 Text: Status: Complete Freq: Protocol: Document 09/27/17 13:47 LCHENG (Rec: 09/27/17 14:02 LCHENG [email or web address]) Nutritional Asmnt/Malnutrition Patient General Information Nutritional Screening Moderate Risk Diagnosis psychosis NOS Pertinent Medical Hx/Surgical Hx HTN, dyslipidemia, arthritis Subjective Information Pt seen sleeping in room at time of visit. Per EMR, PO intake 50-75% of meals. Current Diet Order/ Nutrition Support mech soft chopped MOLLY Pertinent Medications theragran Pertinent Labs 09/23 BUN 36, Cr 1.4, glucose 140, A1c 5.8 Nutritional Hx/Data Height 5 ft 2 in Height (Calculated Centimeters) 157.5 Current Weight (lbs) 119 lb Weight (Calculated Kilograms) 54.0 Weight (Calculated Grams) 39986.5 [place] Body Weight 110 Body Mass Index (BMI) 21.7 Weight Status Approriate GI Symptoms GI Symptoms None Last BM 6 Difficult in: None Skin Integrity/Comment: intact Current %PO Fair (50-74%) Estimated Nutritional Goals BEE in Kcals: Using Current wt Calories/Kcals/Kg 25-30 Kcals Calculated 4839-6829 Protein: Using Current wt Protein g/k Protein Calculated 53 Fluid: ml 1350-1560ml (1ml/kcal) Nutritional Problem No current Nutrition Prob Problem N/A Malnutrition Alert Is there a minimum of two criteria No selected? Query Text:Check all the applicable criteria. A minimum of two criteria are recommended for diagnosis of either severe or non-severe malnutrition. Malnutrition Related to Morbid Obesity Malnutrition related to morbid obesity No Intervention/Recommendation Comments 1. Continue with mech soft chopped MOLLY diet as ordered. 2. Monitor PO intake, wt, labs and skin integrity 3. F/U as low risk in 7 days, 10/04, PO check 09/30 Expected Outcomes/Goals Expected Outcomes/Goals 1. PO intake to meet at least 75% of nutritional needs. 2. Wt stability, skin to remain intact, labs to approach WNL.
[2017-09-29] MEDS: Multivitamin Tab PO SCH (16:23)
--- NOTE | 2017-09-30 02:47 | Progress Notes ---
DATE: 09/29/2017 PSYCHIATRIC PROGRESS NOTE SUBJECTIVE: Staff was spoken to. The patient is interviewed. Mood is noted to be irritable. Affect is constricted. The patient is refusing to eat and not willing to comply with the medications. No side effects to the medications are noted. The patient is currently on 0.5 mg twice a day of Risperdal and has been able to tolerate. ASSESSMENT: The patient is still paranoid and demented. PLAN: To continue the patient with supportive therapy. I encouraged the patient to verbalize the concerns rather than to act out. JOB# [id number]
[2017-09-30] MEDS: Aspirin 325 mg EC PO SCH (08:41)
[2017-09-30] MEDS: Escitalopram Oxalate 5 mg Tab PO SCH (08:41)
[2017-09-30] MEDS: Multivitamin Tab PO SCH (08:41)
--- NOTE | 2017-09-30 11:56 | Internal Medicine Prog Note ---
Internal Medicine Subjective - Subjective Service Date: 09/30/17 Patient is:: awake Per staff patient has:: tolerating meds Internal Medicine Objective - Results Result Diagrams: 09/23/17 19:15 09/23/17 19:15 Recent Labs: Laboratory Last Values WBC 6.2 Th/cmm (4.8-10.8) 09/23/17 19:15 RBC 4.01 Mil/cmm (3.80-5.20) 09/23/17 19:15 Hgb 12.6 gm/dL (12-16) 09/23/17 19:15 Hct 36.7 % (41.0-60) L 09/23/17 19:15 MCV 91.6 fl (81-100) 09/23/17 19:15 MCH 31.4 pg (27.0-31.0) H 09/23/17 19:15 MCHC Differential 34.3 pg (28.0-36.0) 09/23/17 19:15 RDW 14.1 % (11.5-20.0) 09/23/17 19:15 Plt Count 246 Th/cmm (150-400) 09/23/17 19:15 MPV 8.6 fl 09/23/17 19:15 Neutrophils % 61.1 % (40.0-80.0) 09/23/17 19:15 Lymphocytes % 27.3 % (20.0-50.0) 09/23/17 19:15 Monocytes % 6.9 % (2.0-10.0) 09/23/17 19:15 Eosinophils % 4.4 % (0.0-5.0) 09/23/17 19:15 Basophils % 0.3 % (0.0-2.0) 09/23/17 19:15 Sodium 138 mEq/L (136-145) 09/23/17 19:15 Potassium 4.8 mEq/L (3.5-5.1) 09/23/17 19:15 Chloride 107 mEq/L (98-107) 09/23/17 19:15 Carbon Dioxide 23.1 mEq/L (21.0-31.0) 09/23/17 19:15 Anion Gap 12.7 (7.0-16.0) 09/23/17 19:15 BUN 36 mg/dL (7-25) H 09/23/17 19:15 Creatinine 1.4 mg/dL (0.6-1.2) H 09/23/17 19:15 Est GFR ( Amer) TNP 09/23/17 19:15 Est GFR (Non-Af Amer) TNP 09/23/17 19:15 BUN/Creatinine Ratio 25.7 09/23/17 19:15 Glucose 140 mg/dL (70-105) H 09/23/17 19:15 Hemoglobin A1c % 5.8 % (4.0-6.0) 09/23/17 19:15 Calcium 9.4 mg/dL (8.6-10.3) 09/23/17 19:15 Total Bilirubin 0.4 mg/dL (0.3-1.0) 09/23/17 19:15 AST 11 U/L (13-39) L 09/23/17 19:15 ALT 8 U/L (7-52) 09/23/17 19:15 Alkaline Phosphatase 63 U/L (34-104) 09/23/17 19:15 Total Protein 6.8 gm/dL (6.0-8.3) 09/23/17 19:15 Albumin 3.6 gm/dL (3.7-5.3) L 09/23/17 19:15 Globulin 3.2 gm/dL 09/23/17 19:15 Albumin/Globulin Ratio 1.1 (1.0-1.8) 09/23/17 19:15 Triglycerides 94 mg/dL (<150) 09/23/17 19:15 Cholesterol 197 mg/dL (<200) 09/23/17 19:15 LDL Cholesterol Direct 141 mg/dL (75-193) 09/23/17 19:15 HDL Cholesterol 43 mg/dL (23-92) 09/23/17 19:15 TSH 1.36 uIU/ml (0.34-5.60) 09/23/17 19:15 Salicylates < 25.0 mg/L (30.0-100.0) L 09/23/17 19:15 Acetaminophen < 10.0 ug/mL (10.0-30.0) L 09/23/17 19:15 Ethyl Alcohol < 10 mg/dL (0-10) 09/23/17 19:15 RPR NONREACTIVE (NONREACTIVE) 09/30/17 10:00 - Physical Exam Vitals and I&O: Vital Signs Temp 97.9 F 09/30/17 06:18 Pulse 77 09/30/17 06:18 Resp 18 09/30/17 06:18 BP 126/66 09/30/17 06:18 Pulse Ox 98 09/30/17 06:18 Intake & Output 09/29/17 09/30/17 09/30/17 18:59 06:59 18:59 Intake Total 600 240 Balance 600 240 Intake: Oral 600 240 Other: # Voids 2 2 Active Medications: Current Medications Acetaminophen (Tylenol) 650 mg PO Q4H PRN PRN Reason: PAIN Stop: 11/22/17 22:40 Al Hydrox/Mg Hydrox/Simethicone (Maalox) 30 ml PO Q4HR PRN PRN Reason: GI DISTRESS Stop: 11/22/17 21:51 Aspirin (Ecotrin) 325 mg PO DAILY RAHEEM Stop: 11/23/17 08:59 Last Admin: 09/30/17 08:41 Dose: 325 mg Bisacodyl (Dulcolax 10 Mg Supp) 10 mg RC DAILY PRN PRN Reason: Constipation Stop: 11/22/17 21:51 Escitalopram Oxalate (Lexapro) 5 mg PO DAILY RAHEEM; Protocol Stop: 11/23/17 08:59 Last Admin: 09/30/17 08:41 Dose: 5 mg Lorazepam (Ativan) 0.5 mg PO Q4H PRN; Protocol PRN Reason: Anxiety Stop: 11/22/17 21:51 Magnesium Hydroxide (Milk Of Magnesia) 30 ml PO DAILY PRN PRN Reason: Constipation Stop: 11/22/17 21:51 Multivitamins/Vitamin C (Theragran) 1 tab PO DAILY RAHEEM Stop: 11/23/17 08:59 Last Admin: 09/30/17 08:41 Dose: 1 tab Risperidone (Risperdal) 0.5 mg PO BID RAHEEM; Protocol Stop: 11/23/17 08:59 Last Admin: 09/30/17 08:40 Dose: 0.5 mg Zolpidem Tartrate (Ambien) 5 mg PO HS PRN PRN Reason: Insomnia Stop: 11/22/17 22:00 Last Admin: 09/27/17 21:21 Dose: 5 mg General: alert HEENT: NC/AT, PERRLA Neck: Supple Lungs: CTAB - Procedures Procedures: Procedures Procedure Code Date GROUP PSYCHOTHERAPY 54787 02/28/15 GROUP PSYCHOTHERAPY GZHZZZZ 02/28/15 Internal Medicine Assmt/Plan - Assessment Assessment: HTN Dyslipidemia agitation Arthritis - Plan Plan: monitor BP , will adjust accordingly continue current plan of care Nutritional Asmnt/Malnutr-PDOC - Dietary Evaluation Malnutrition Findings (Please click <Entered> for more info): Nutritional Asmnt/Malnutrition Start: 09/27/17 13: 47 Text: Status: Complete Freq: Protocol: Document 09/27/17 13:47 [facility] (Rec: 09/27/17 14:02 HEN [email or web address]) Nutritional Asmnt/Malnutrition Patient General Information Nutritional Screening Moderate Risk Diagnosis psychosis NOS Pertinent Medical Hx/Surgical Hx HTN, dyslipidemia, arthritis Subjective Information Pt seen sleeping in room at time of visit. Per EMR, PO intake 50-75% of meals. Current Diet Order/ Nutrition Support mech soft chopped MOLLY Pertinent Medications theragran Pertinent Labs 09/23 BUN 36, Cr 1.4, glucose 140, A1c 5.8 Nutritional Hx/Data Height 5 ft 2 in Height (Calculated Centimeters) 157.5 Current Weight (lbs) 119 lb Weight (Calculated Kilograms) 54.0 Weight (Calculated Grams) 81861.5 [place] Body Weight 110 Body Mass Index (BMI) 21.7 Weight Status Approriate GI Symptoms GI Symptoms None Last BM 6 Difficult in: None Skin Integrity/Comment: intact Current %PO Fair (50-74%) Estimated Nutritional Goals BEE in Kcals: Using Current wt Calories/Kcals/Kg 25-30 Kcals Calculated 2464-2759 Protein: Using Current wt Protein g/k Protein Calculated 53 Fluid: ml 1350-1560ml (1ml/kcal) Nutritional Problem No current Nutrition Prob Problem N/A Malnutrition Alert Is there a minimum of two criteria No selected? Query Text:Check all the applicable criteria. A minimum of two criteria are recommended for diagnosis of either severe or non-severe malnutrition. Malnutrition Related to Morbid Obesity Malnutrition related to morbid obesity No Intervention/Recommendation Comments 1. Continue with mech soft chopped MOLLY diet as ordered. 2. Monitor PO intake, wt, labs and skin integrity 3. F/U as low risk in 7 days, 10/04, PO check 09/30 Expected Outcomes/Goals Expected Outcomes/Goals 1. PO intake to meet at least 75% of nutritional needs. 2. Wt stability, skin to remain intact, labs to approach WNL.
--- NOTE | 2017-10-01 02:06 | Progress Notes ---
DATE: 09/30/2017 SUBJECTIVE: Staff was spoken to. The patient is interviewed. Mood is noted to be anxious. Affect is appropriate. Not suicidal or homicidal today. Insight and judgment are noted to be improving. The patient is complaining of mild sedation with the medication that she is getting. The patient; however, has not been presenting with any major problems today. If the patient continues to be stabilizing, possibly the patient is going to be discharged tomorrow for further followup on an outpatient basis. JOB# [id number]
[2017-10-01] MEDS: Multivitamin Tab PO SCH (08:03)
[2017-10-01] MEDS: Aspirin 325 mg EC PO SCH (08:03)
[2017-10-01] MEDS: Escitalopram Oxalate 5 mg Tab PO SCH (08:03)
--- NOTE | 2017-10-01 13:03 | Progress Notes ---
DATE: 10/01/2017 PSYCHIATRIC PROGRESS NOTE SUBJECTIVE: Staff was spoken to. The patient is interviewed. Mood is noted to be anxious. The patient's insight and judgment are improving. Impulse control seems to be fair. Coping skills are also noted to be fair. No side effects to medications are noted. The patient has been mentioning that the medication Initially made her to be sleepy, but she is okay and patient does not presently exhibit any major problems, possibly the patient is going to be discharged today whenever the transportation is available. JOB# [id number]
--- NOTE | 2017-10-01 13:29 | Internal Medicine Prog Note ---
Internal Medicine Subjective - Subjective Patient seen and examined:: with staff, chart reviewed, other (pt seen w staff at 11) Patient is:: awake, verbal, interactive Per staff patient has:: no adverse event, no episodes of fall, tolerating meds Internal Medicine Objective - Results Result Diagrams: 09/23/17 19:15 09/23/17 19:15 Recent Labs: Laboratory Last Values WBC 6.2 Th/cmm (4.8-10.8) 09/23/17 19:15 RBC 4.01 Mil/cmm (3.80-5.20) 09/23/17 19:15 Hgb 12.6 gm/dL (12-16) 09/23/17 19:15 Hct 36.7 % (41.0-60) L 09/23/17 19:15 MCV 91.6 fl (81-100) 09/23/17 19:15 MCH 31.4 pg (27.0-31.0) H 09/23/17 19:15 MCHC Differential 34.3 pg (28.0-36.0) 09/23/17 19:15 RDW 14.1 % (11.5-20.0) 09/23/17 19:15 Plt Count 246 Th/cmm (150-400) 09/23/17 19:15 MPV 8.6 fl 09/23/17 19:15 Neutrophils % 61.1 % (40.0-80.0) 09/23/17 19:15 Lymphocytes % 27.3 % (20.0-50.0) 09/23/17 19:15 Monocytes % 6.9 % (2.0-10.0) 09/23/17 19:15 Eosinophils % 4.4 % (0.0-5.0) 09/23/17 19:15 Basophils % 0.3 % (0.0-2.0) 09/23/17 19:15 Sodium 138 mEq/L (136-145) 09/23/17 19:15 Potassium 4.8 mEq/L (3.5-5.1) 09/23/17 19:15 Chloride 107 mEq/L (98-107) 09/23/17 19:15 Carbon Dioxide 23.1 mEq/L (21.0-31.0) 09/23/17 19:15 Anion Gap 12.7 (7.0-16.0) 09/23/17 19:15 BUN 36 mg/dL (7-25) H 09/23/17 19:15 Creatinine 1.4 mg/dL (0.6-1.2) H 09/23/17 19:15 Est GFR ( Amer) TNP 09/23/17 19:15 Est GFR (Non-Af Amer) TNP 09/23/17 19:15 BUN/Creatinine Ratio 25.7 09/23/17 19:15 Glucose 140 mg/dL (70-105) H 09/23/17 19:15 Hemoglobin A1c % 5.8 % (4.0-6.0) 09/23/17 19:15 Calcium 9.4 mg/dL (8.6-10.3) 09/23/17 19:15 Total Bilirubin 0.4 mg/dL (0.3-1.0) 09/23/17 19:15 AST 11 U/L (13-39) L 09/23/17 19:15 ALT 8 U/L (7-52) 09/23/17 19:15 Alkaline Phosphatase 63 U/L (34-104) 09/23/17 19:15 Total Protein 6.8 gm/dL (6.0-8.3) 09/23/17 19:15 Albumin 3.6 gm/dL (3.7-5.3) L 09/23/17 19:15 Globulin 3.2 gm/dL 09/23/17 19:15 Albumin/Globulin Ratio 1.1 (1.0-1.8) 09/23/17 19:15 Triglycerides 94 mg/dL (<150) 09/23/17 19:15 Cholesterol 197 mg/dL (<200) 09/23/17 19:15 LDL Cholesterol Direct 141 mg/dL (75-193) 09/23/17 19:15 HDL Cholesterol 43 mg/dL (23-92) 09/23/17 19:15 TSH 1.36 uIU/ml (0.34-5.60) 09/23/17 19:15 Salicylates < 25.0 mg/L (30.0-100.0) L 09/23/17 19:15 Acetaminophen < 10.0 ug/mL (10.0-30.0) L 06/01/18 19:15 Ethyl Alcohol < 10 mg/dL (0-10) 09/23/17 19:15 RPR NONREACTIVE (NONREACTIVE) 09/30/17 10:00 - Physical Exam Vitals and I&O: Vital Signs Temp 97.5 F 10/01/17 06:35 Pulse 80 10/01/17 06:35 Resp 20 10/01/17 06:35 BP 141/60 10/01/17 06:35 Pulse Ox 95 10/01/17 06:35 Intake & Output 09/30/17 10/01/17 10/01/17 18:59 06:59 18:59 Intake Total 600 870 Balance 600 870 Intake: Oral 600 870 Other: # Voids 1 1 General: alert HEENT: NC/AT, PERRLA Neck: Supple Lungs: CTAB Extremities: excoriation Neurological: no change - Procedures Procedures: Procedures Procedure Code Date GROUP PSYCHOTHERAPY 69303 02/28/15 GROUP PSYCHOTHERAPY GZHZZZZ 02/28/15 Internal Medicine Assmt/Plan - Assessment Assessment: - Assessment Assessment: HTN Dyslipidemia agitation Arthritis - Plan Plan: monitor BP , will adjust accordingly continue current plan of care - Plan Plan: per staff placement ongoing Nutritional Asmnt/Malnutr-PDOC - Dietary Evaluation Malnutrition Findings (Please click <Entered> for more info): Nutritional Asmnt/Malnutrition Start: 09/27/17 13: 47 Text: Status: Complete Freq: Protocol: Document 09/27/17 13:47 [facility] (Rec: 09/27/17 14:02 LCHENG [email or web address]) Nutritional Asmnt/Malnutrition Patient General Information Nutritional Screening Moderate Risk Diagnosis psychosis NOS Pertinent Medical Hx/Surgical Hx HTN, dyslipidemia, arthritis Subjective Information Pt seen sleeping in room at time of visit. Per EMR, PO intake 50-75% of meals. Current Diet Order/ Nutrition Support mech soft chopped MOLLY Pertinent Medications theragran Pertinent Labs 09/23 BUN 36, Cr 1.4, glucose 140, A1c 5.8 Nutritional Hx/Data Height 1.57 m Height (Calculated Centimeters) 157.5 Current Weight (lbs) 53.977 kg Weight (Calculated Kilograms) 54.0 Weight (Calculated Grams) 30269.5 [place] Body Weight 110 Body Mass Index (BMI) 21.7 Weight Status Approriate GI Symptoms GI Symptoms None Last BM 6/5 Difficult in: None Skin Integrity/Comment: intact Current %PO Fair (50-74%) Estimated Nutritional Goals BEE in Kcals: Using Current wt Calories/Kcals/Kg 25-30 Kcals Calculated 9969-2997 Protein: Using Current wt Protein g/k Protein Calculated 53 Fluid: ml 1350-1560ml (1ml/kcal) Nutritional Problem No current Nutrition Prob Problem N/A Malnutrition Alert Is there a minimum of two criteria No selected? Query Text:Check all the applicable criteria. A minimum of two criteria are recommended for diagnosis of either severe or non-severe malnutrition. Malnutrition Related to Morbid Obesity Malnutrition related to morbid obesity No Intervention/Recommendation Comments 1. Continue with [facility] soft chopped MOLLY diet as ordered. 2. Monitor PO intake, wt, labs and skin integrity 3. F/U as low risk in 7 days, 10/04, PO check 09/30 Expected Outcomes/Goals Expected Outcomes/Goals 1. PO intake to meet at least 75% of nutritional needs. 2. Wt stability, skin to remain intact, labs to approach WNL.
== END 2017-10-01 11:30 | DRG 885 ==
LOC: ER 17:41 → GERO 19:57
PROVIDERS: ADMIT Psychiatry & Neurology Psychiatry; ATTEND Psychiatry & Neurology Psychiatry
DX: F29 Unspecified psychosis not due to a substance or known physiological condition (principal); F03.91 Unspecified dementia, unspecified severity, with behavioral disturbance; I10 Essential (primary) hypertension; E78.5 Hyperlipidemia, unspecified; M19.90 Unspecified osteoarthritis, unspecified site; Z88.0 Allergy status to penicillin; Z82.49 Family history of ischemic heart disease and other diseases of the circulatory system
CPT/HCPCS: 36415-UA; 80053-TC; 80061-TC; 80320-TC; 80329-TC; 83036-90; 84443-TC; 85025-TC; 86592-TC; 93005

== ENCOUNTER 2018-05-19 12:33 | Inpatient (IN) | payer MEDICARE, OTHER ==
[2018-05-19 13:18] LABS: % BASOPHILS 0.4 % (0.0-2.0); % EOSINOPHILS 5.9 % (0.0-5.0); % LYMPHOCYTES 27.7 % (20.0-50.0); % MONOCYTES 9.1 % (2.0-10.0); % NEUTROPHILS 56.9 % (40.0-80.0); EOSINOPHILE ABSOLUTE 0.4 Th/cmm (0.1-0.4); HEMATOCRIT 38.7 % (41.0-60); HEMOGLOBIN 12.8 gm/dL (12-16); LYMPHOCYTE ABSOLUTE 1.7 Th/cmm (1.5-3.0); MEAN CELL VOLUME 90.9 fl (81-100); MEAN CORPUSCULAR HEMOGLOBIN 30.1 pg (27.0-31.0); MEAN CORPUSCULAR HGB CONC 33.1 pg (28.0-36.0); MEAN PLATELET VOLUME 9.3 fl; MONOCYTE ABSOLUTE 0.6 Th/cmm (0.3-1.0); NEUTROPHILE ABSOLUTE 3.4 Th/cmm (1.8-8.0); PLATELET COUNT 216 Th/cmm (150-400); RED BLOOD COUNT 4.25 Mil/cmm (3.80-5.20); RED CELL DISTRIBUTION WIDTH 14.4 % (11.5-20.0); WHITE BLOOD COUNT 6.1 Th/cmm (4.8-10.8)
--- NOTE | 2018-05-19 13:31 | ED Physician Chart ---
ED Chief Complaint/HPI - Patient Information Date Seen:: 05/19/18 Time Seen:: 13:16 Chief Complaint:: psychotic behavior History of Present Illness:: this is an 87 yo female [facility]. Allergies:: Allergies Allergy/AdvReac Type Severity Reaction Status Date / Time Penicillins Allergy Verified 09/23/17 18:42 Vitals:: Vital Signs - 8 hr 05/19/18 13:00 Temp 97.1 F HR 84 RR 18 BP 149/71 O2 Sat % 96 Historian:: Patient Review:: Nurse's Note Reviewed, Old Chart Reviewed, Transfer documents Reviewed ED Review of Systems - Review of Systems General/Constitutional: No fever, No chills, No weight loss, No weakness, No diaphoresis, No edema, No loss of appetite, Other (this patient is unable to give a review of systems) Skin: No skin lesions, No rash, No bruising Head: No headache, No light-headedness Eyes: No loss of vision, No pain, No diplopia ENT: No earache, No nasal drainage, No sore throat, No tinnitus Neck: No neck pain, No swelling, No thyromegaly, No stiffness, No mass noted Cardio Vascular: No chest pain, No palpitations, No PND, No orthopnea, No edema Pulmonary: No SOB, No cough, No sputum, No wheezing GI: No nausea, No vomiting, No diarrhea, No pain, No melena, No hematochezia, No constipation, No hematemesis G/U: No dysuria, No frequency, No hematuria Musculoskeletal: No bone or joint pain, No back pain, No muscle pain Endocrine: No polyuria, No polydipsia Psychiatric: No prior psych history, No depression, No anxiety, No suicidal ideation Hematopoietic: No bruising, No lymphadenopathy Allergic/Immuno: No urticaria, No angioedema Neurological: No syncope, No focal symptoms, No weakness, No paresthesia, No headache, No seizure, No dizziness, No confusion, No vertigo ED Past Medical History - Past Medical History Obtainable: Yes Past Medical History: HTN, CAD, CHF, Dementia Family History: None Social History: Non Smoker, No Alcohol, No Drug Use, Care Facility Surgical History: None Psychiatricy History: Depression, Schizophrenia, Dementia Medication: Reviewed Family Medical History - Family Member Mother History Unknown: Yes Ethnicity: Non- Living Status: Hx Family Cancer: No Hx Family Coronary Artery Disease: No Hx Family Congestive Heart Failure: No Hx Family Hypertension: No Hx Family Stroke: No Hx Family Diabetes: No Hx Family Seizures: No Hx Family Dementia: No Hx Family AIDS: No Hx Family HIV: No Hx Family COPD: No Hx Family Hepatitis: No Hx Family Psychiatric Problems: No Hx Family Tuberculosis: No ED Physical Exam - Physical Examination General/Constitutional: Awake, Well-developed, well-nourished, Alert, No distress, GCS 15, Non-toxic appearing, Ambulatory Other Gen/Cons comments:: agitated and uncooperative Head: Atraumatic Eyes: Lids, conjuctiva normal, PERRL, EOMI Skin: Nl inspection, No rash, No skin lesions, No ecchymosis, Well hydrated, No lymphadenopathy ENMT: External ears, nose nl, Nasal exam nl, Lips, teeth, gums nl Neck: Nontender, Full ROM w/o pain, No JVD, No nuchal rigidity, No bruit, No mass, No stridor Respiratory: Nl effort/Exclusion, Clear to Auscultation, No Wheeze/Rhonchi/Rales Cardio Vascular: RRR, No murmur, gallop, rubs, NL S1 S2 GI: No tenderness/rebounding/guarding, No organomegaly, No hernia, Normal BS's, Nondistended, No mass/bruits, No McBurney tenderness : No CVA tenderness Extremities: No tenderness or effusion, Full ROM, normal strength in all extremities, No edema, Normal digits & nails Neuro/Psych: Alert/oriented, DTR's symmetric, Normal sensory exam, Normal motor strength, Judgement/insight normal, Mood normal, Normal gait, No focal deficits Misc: Normal back, No paraspinal tenderness ED Labs/Radiology/EKG Results - Lab Results Results: Laboratory Tests 05/19/18 13:10 WBC 6.1 RBC 4.25 Hgb 12.8 Hct 38.7 L MCV 90.9 MCH 30.1 MCHC Differential 33.1 RDW 14.4 Plt Count 216 MPV 9.3 Neutrophils % 56.9 Lymphocytes % 27.7 Monocytes % 9.1 Eosinophils % 5.9 H Basophils % 0.4 ED Assessment - Assessment General Assessment: psychosis ED Septic Shock - . Is Septic Shock (SBP<90, OR Lactate>4 mmol\L) present?: No - <6hrs of presentation: Vital Signs: Vital Signs - 8 hr 05/19/18 13:00 Temp 97.1 F HR 84 RR 18 BP 149/71 O2 Sat % 96 ED Reassessment (Disposition) - Reassessment Reassessment Condition:: Unchanged - Diagnosis Diagnosis:: psychosis - Patient Disposition Discharge/Transfer:: Acute Care w/in this hosp Admitting Medical Physician:: Jose Duffy Admitting Psych Physician:: Charli Herman Condition at Disposition:: Unchanged
[2018-05-19 13:33] LABS: ALB/GLOB RATIO 1.1 (1.0-1.8); ALBUMIN 3.6 gm/dL (3.7-5.3); ALKALINE PHOSPHATASE 52 U/L (34-104); ANION GAP 13.2 (7.0-16.0); BILIRUBIN,TOTAL 0.7 mg/dL (0.3-1.0); BUN - UREA NITROGEN 17 mg/dL (7-25); CALCIUM SERUM 9.7 mg/dL (8.6-10.3); CHLORIDE 102 mEq/L (98-107); GLUCOSE 106 mg/dL (70-105); POTASSIUM SERUM 4.2 mEq/L (3.5-5.1); PROTHROMBIN TIME (TEST) 10.4 SECONDS (9.5-11.5); SGOT 16 U/L (13-39); SGPT/ALT 7 U/L (7-52); SODIUM SERUM 138 mEq/L (136-145); TOTAL PROTEIN,SERUM 6.8 gm/dL (6.0-8.3)
--- NOTE | 2018-05-19 13:33 | Diagnostic Imaging Report ---
Portable chest x-ray HISTORY: Cough The heart size is normal. Atherosclerotic calcination seen in the aorta. Cardiac pacemaker lead wires project over the right atrium and right ventricle. No acute focal pulmonary processes. IMPRESSION: 1. No acute abnormalities 2. Cardiac pacemaker placement 3. Atherosclerotic vascular changes
[2018-05-19 18:45] VITALS: BP 150/65
[2018-05-19] MEDS ORDERED: Magnesium Hydroxide (MOM) 30 mL UDC PO PRN ×2 (18:45→20:14)
[2018-05-19] MEDS ORDERED: Maalox 30 mL Cup PO PRN ×2 (18:45→20:14)
[2018-05-19 19:33] LABS: CHOLESTEROL 228 mg/dL (<200); HDL -HIGH DENSITY LIPOPROTEIN 66 mg/dL (23-92); TRIGLYCERIDES 77 mg/dL (<150)
--- NOTE | 2018-05-19 21:41 | History & Physical ---
ADMIT DATE: 05/19/2018 CHIEF COMPLAINT: Increasing agitation. HISTORY OF PRESENT ILLNESS: This is an 87-year-old female with history of hypertension, CAD, history of CHF, status post pacemaker, dementia, admitted from nursing facility secondary to above complaint, under the service of Dr. Herman. The patient is not a best historian. Denies chest pain or shortness of breath. PAST MEDICAL HISTORY: As mentioned in history of present illness. PAST SURGICAL HISTORY: Status pacemaker placement. ALLERGIES: PENICILLIN. MEDICATION: Risperidone, magnesium, Ativan, Lexapro, Tylenol, Maalox, Dulcolax. FAMILY HISTORY: Noncontributory. SOCIAL HISTORY: The patient is a long term patient requiring 24-hour total care. REVIEW OF SYSTEMS: This is limited secondary to the patient's current mental state. We will try to obtain more detailed review of systems at a later date by talking to family members. We will also try to get more information from the patient at a later date when she is less agitated. PHYSICAL EXAMINATION: VITAL SIGNS: Blood pressure 143/59, respirations 18, pulse 79, and temperature 76. GENERAL: Elderly female, appears her stated age. NECK: Supple. LUNGS: Equal breath sounds with few rhonchi. HEART: Regular rate and rhythm with systolic ejection murmur. ABDOMEN: Soft, globular. EXTREMITIES: Positive excoriations. NEUROLOGIC: Limited. LABORATORY DATA: WBC 6, hemoglobin 12, platelets 216. INR 1.0, PTT 32. Sodium 138, potassium 4.2, BUN 75, creatinine 1.0, blood sugar 106, albumin 3.6, cholesterol 328. ASSESSMENT AND PLAN: Coronary artery disease, history of hypertension, congestive heart failure, dementia, hypercholesterolemia, low albumin. We will place the patient on clonidine on as-needed basis. We may consider starting the patient on a calcium channel lance. Start the patient on statin medication. Labs were noted. Psychiatry to manage the patient for all psych issues. We will refer the patient's urinalysis as well as blood culture. Hemoglobin A1c was also sent. We will continue to monitor the patient closely. JOB# [id number]
[2018-05-20] MEDS: Multivitamin Tab PO SCH (09:47)
[2018-05-20] MEDS: Escitalopram Oxalate 5 mg Tab PO SCH (09:48)
[2018-05-20] MEDS: Atorvastatin Calcium 10 MG TAB PO SCH (09:49)
--- NOTE | 2018-05-20 10:15 | Internal Medicine Prog Note ---
Internal Medicine Subjective - Subjective Patient seen and examined:: with staff, chart reviewed Patient is:: awake, verbal, interactive, in bed, denies any new complaints Per staff patient has:: no adverse event, no episodes of fall, poor appetite, noncompliant Internal Medicine Objective - Results Result Diagrams: 05/19/18 13:10 05/19/18 13:10 Recent Labs: Laboratory Last Values WBC 6.1 Th/cmm (4.8-10.8) 05/19/18 13:10 RBC 4.25 Mil/cmm (3.80-5.20) 05/19/18 13:10 Hgb 12.8 gm/dL (12-16) 05/19/18 13:10 Hct 38.7 % (41.0-60) L 05/19/18 13:10 MCV 90.9 fl (81-100) 05/19/18 13:10 MCH 30.1 pg (27.0-31.0) 05/19/18 13:10 MCHC Differential 33.1 pg (28.0-36.0) 05/19/18 13:10 RDW 14.4 % (11.5-20.0) 05/19/18 13:10 Plt Count 216 Th/cmm (150-400) 05/19/18 13:10 MPV 9.3 fl 05/19/18 13:10 Neutrophils % 56.9 % (40.0-80.0) 05/19/18 13:10 Lymphocytes % 27.7 % (20.0-50.0) 05/19/18 13:10 Monocytes % 9.1 % (2.0-10.0) 05/19/18 13:10 Eosinophils % 5.9 % (0.0-5.0) H 05/19/18 13:10 Basophils % 0.4 % (0.0-2.0) 05/19/18 13:10 PT 10.4 SECONDS (9.5-11.5) 05/19/18 13:10 INR 1.00 (0.5-1.4) 05/19/18 13:10 PTT (Actin FS) 22.4 SECONDS (26.0-38.0) L 05/19/18 13:10 Sodium 138 mEq/L (136-145) 05/19/18 13:10 Potassium 4.2 mEq/L (3.5-5.1) 05/19/18 13:10 Chloride 102 mEq/L (98-107) 05/19/18 13:10 Carbon Dioxide 27.0 mEq/L (21.0-31.0) 05/19/18 13:10 Anion Gap 13.2 (7.0-16.0) 05/19/18 13:10 BUN 17 mg/dL (7-25) 05/19/18 13:10 Creatinine 1.0 mg/dL (0.6-1.2) 05/19/18 13:10 Est GFR ( Amer) TNP 05/19/18 13:10 Est GFR (Non-Af Amer) TNP 05/19/18 13:10 BUN/Creatinine Ratio 17.0 05/19/18 13:10 Glucose 106 mg/dL (70-105) H 05/19/18 13:10 Calcium 9.7 mg/dL (8.6-10.3) 05/19/18 13:10 Total Bilirubin 0.7 mg/dL (0.3-1.0) 05/19/18 13:10 AST 16 U/L (13-39) 05/19/18 13:10 ALT 7 U/L (7-52) 05/19/18 13:10 Alkaline Phosphatase 52 U/L (34-104) 05/19/18 13:10 Troponin I 0.01 ng/mL (0.01-0.05) 05/19/18 13:10 Total Protein 6.8 gm/dL (6.0-8.3) 05/19/18 13:10 Albumin 3.6 gm/dL (3.7-5.3) L 05/19/18 13:10 Globulin 3.2 gm/dL 05/19/18 13:10 Albumin/Globulin Ratio 1.1 (1.0-1.8) 05/19/18 13:10 Triglycerides 77 mg/dL (<150) 05/19/18 13:10 Cholesterol 228 mg/dL (<200) H 05/19/18 13:10 LDL Cholesterol Direct 157 mg/dL (75-193) 05/19/18 13:10 HDL Cholesterol 66 mg/dL (23-92) 05/19/18 13:10 TSH 1.48 uIU/ml (0.34-5.60) 05/19/18 13:10 - Physical Exam Vitals and I&O: Vital Signs Temp 98.0 F 05/20/18 06:11 Pulse 66 05/20/18 06:11 Resp 18 05/20/18 06:11 BP 152/82 05/20/18 06:11 Pulse Ox 98 05/20/18 06:11 Intake & Output 05/19/18 05/20/18 05/20/18 18:59 06:59 18:59 Intake Total 60 Balance 60 Weight (lbs) 54.431 kg Intake: Oral 60 Other: # Voids 1 # Bowel Movements 0 Weight Source Estimated Active Medications: Current Medications Acetaminophen (Tylenol) 650 mg PO Q4HR PRN PRN Reason: Mild Pain / Temp above 100 Stop: 07/18/18 18:44 Acetaminophen (Tylenol) 650 mg PO Q4H PRN PRN Reason: Pain Al Hydrox/Mg Hydrox/Simethicone (Maalox) 30 ml PO Q4HR PRN PRN Reason: Constipation Stop: 07/18/18 20:13 Atorvastatin Calcium (Lipitor) 10 mg PO DAILY RAHEEM; Protocol Stop: 07/19/18 08:59 Last Admin: 05/20/18 09:49 Dose: 10 mg Bisacodyl (Dulcolax 10 Mg Supp) 10 mg RC DAILY PRN PRN Reason: IF MOM INEFFECTIVE Stop: 07/18/18 20:13 Escitalopram Oxalate (Lexapro) 5 mg PO DAILY RAHEEM; Protocol Stop: 07/19/18 08:59 Last Admin: 05/20/18 09:48 Dose: 5 mg Lorazepam (Ativan) 0.5 mg PO Q4HR PRN; Protocol PRN Reason: Agitation Stop: 06/18/18 18:44 Magnesium Hydroxide (Milk Of Magnesia) 30 ml PO HS PRN PRN Reason: Constipation Magnesium Hydroxide (Milk Of Magnesia) 30 ml PO PRN PRN PRN Reason: BOWEL MAINTENANCE Stop: 07/18/18 20:13 Multivitamins/Vitamin C (Theragran) 1 tab PO DAILY RAHEEM Stop: 07/19/18 08:59 Last Admin: 05/20/18 09:47 Dose: Not Given Risperidone (Risperdal) 0.5 mg PO BID RAHEEM; Protocol Stop: 07/19/18 08:59 Last Admin: 05/20/18 09:48 Dose: 0.5 mg Zolpidem Tartrate (Ambien) 5 mg PO HS PRN PRN Reason: Insomnia Stop: 07/18/18 18:44 General: weak HEENT: NC/AT, PERRLA, EOMI Neck: Supple, No JVD Lungs: CTAB Cardiovascular: RRR, Normal S1, Normal S2, with murmur Abdomen: soft, non-tender, globular, positive bowel sound Extremities: excoriation - Procedures Procedures: Procedures Procedure Code Date GROUP PSYCHOTHERAPY 82574 02/28/15 GROUP PSYCHOTHERAPY GZHZZZZ 02/28/15 Internal Medicine Assmt/Plan - Assessment Assessment: ASSESSMENT AND PLAN: Coronary artery disease, history of hypertension, congestive heart failure, dementia, hypercholesterolemia, low albumin. - Plan Plan: PLAN: We will place the patient on clonidine on as-needed basis. We may consider starting the patient on a calcium channel lance. Start the patient on statin medication. Labs were noted. Psychiatry to manage the patient for all psych issues. We will refer the patient's urinalysis as well as blood culture. Hemoglobin A1c was also sent. We will continue to monitor the patient closely.
--- NOTE | 2018-05-21 01:42 | Psychiatric Evaluation ---
DATE OF SERVICE: 05/20/2018 PSYCHIATRIC EVALUATION AND EXAMINATION IDENTIFYING DATA: The patient is an 87-year-old resident of [facility] in [place]. Information was obtained by directly interviewing the patient as well as reviewing the admission papers and they are reliable. JUSTIFICATION FOR HOSPITALIZATION: The patient is admitted over here on a voluntary basis in view of her acute depression and isolation. CHIEF COMPLAINT: "I am depressed." HISTORY OF PRESENT ILLNESS: This is one of multiple psychiatric hospitalizations for this patient, who has been a resident of the [facility]. The patient is reported to have been feeling extremely depressed, isolative, withdrawn, and refusing care and hence the patient has been referred over here for stabilization. The patient's sleep and appetite prior to the hospitalization are reported to be poor. Past psychiatric history: The patient was hospitalized here on couple of occasions and has been diagnosed to have the psychotic disorder, not otherwise specified and the last hospitalization was in the 09/2017. The patient after stabilization was discharged to be followed up on an outpatient basis. However, the patient at this time is refusing to care for self and has been reluctant to participate in any of the activities. Prior to the hospitalization, the patient has been on escitalopram 5 mg and the Risperdal 0.5 mg twice a day. Even with that one, the patient is reported to have been having difficult time to cope with the stress. During the evaluation, the patient has been noted to be very irritable and the patient has been having difficult time to answer a few questions. The patient is alert, but is noted to be withdrawn and the patient's insight and judgment are noted to be very much impaired. Impulse control is noted to be very limited. The patient, however, is not presenting with any threats to harm self or others, but the patient is very feeble to answer any of the questions. PAST PSYCHIATRIC HISTORY: Please refer to the above. MEDICAL HISTORY AND PHYSICAL EXAMINATION: Requested to be done by Dr. Duffy. SUBSTANCE ABUSE HISTORY: None. PHYSICAL OR SEXUAL ABUSE HISTORY: None. LEGAL PROBLEMS: None at this time. STRENGTH AND ASSETS: The patient is motivated. MENTAL STATUS EXAMINATION: The patient is an 87-year-old woman, thin built, superficially cooperative. Eye contact is noted to be poor. Mood is noted to be irritable. Affect is constricted. Insight and judgment at this time are noted to be very much impaired. Impulse control is noted to be poor. Coping skills are also noted to be very poor. The patient has been having difficult time to cope with the stress. The patient has paranoia and the patient is denying any command hallucinations. The patient is not able to give any detailed information with regards to her date of or the place where she was staying. DIAGNOSTIC IMPRESSION: AXIS IA: Major depressive disorder, recurrent with psychotic symptoms. AXIS IB. Dementia and behavioral changes secondary to dementia. PLAN: To continue the patient with a low dose of Lexapro and decrease the dose on the Risperdal to 0.5 mg and follow the patient up. JOB# [id number]
--- NOTE | 2018-05-21 08:52 | Internal Medicine Prog Note ---
Internal Medicine Subjective - Subjective Patient seen and examined:: with staff, chart reviewed Patient is:: awake, verbal, interactive, in bed, denies any new complaints Per staff patient has:: no adverse event, no episodes of fall, poor appetite, noncompliant Internal Medicine Objective - Results Result Diagrams: 05/19/18 13:10 05/19/18 13:10 Recent Labs: Laboratory Last Values WBC 6.1 Th/cmm (4.8-10.8) 05/19/18 13:10 RBC 4.25 Mil/cmm (3.80-5.20) 05/19/18 13:10 Hgb 12.8 gm/dL (12-16) 05/19/18 13:10 Hct 38.7 % (41.0-60) L 05/19/18 13:10 MCV 90.9 fl (81-100) 05/19/18 13:10 MCH 30.1 pg (27.0-31.0) 05/19/18 13:10 MCHC Differential 33.1 pg (28.0-36.0) 05/19/18 13:10 RDW 14.4 % (11.5-20.0) 05/19/18 13:10 Plt Count 216 Th/cmm (150-400) 05/19/18 13:10 MPV 9.3 fl 05/19/18 13:10 Neutrophils % 56.9 % (40.0-80.0) 05/19/18 13:10 Lymphocytes % 27.7 % (20.0-50.0) 05/19/18 13:10 Monocytes % 9.1 % (2.0-10.0) 05/19/18 13:10 Eosinophils % 5.9 % (0.0-5.0) H 05/19/18 13:10 Basophils % 0.4 % (0.0-2.0) 05/19/18 13:10 PT 10.4 SECONDS (9.5-11.5) 05/19/18 13:10 INR 1.00 (0.5-1.4) 05/19/18 13:10 PTT (Actin FS) 22.4 SECONDS (26.0-38.0) L 05/19/18 13:10 Sodium 138 mEq/L (136-145) 05/19/18 13:10 Potassium 4.2 mEq/L (3.5-5.1) 05/19/18 13:10 Chloride 102 mEq/L (98-107) 05/19/18 13:10 Carbon Dioxide 27.0 mEq/L (21.0-31.0) 05/19/18 13:10 Anion Gap 13.2 (7.0-16.0) 05/19/18 13:10 BUN 17 mg/dL (7-25) 05/19/18 13:10 Creatinine 1.0 mg/dL (0.6-1.2) 05/19/18 13:10 Est GFR ( Amer) TNP 05/19/18 13:10 Est GFR (Non-Af Amer) TNP 05/19/18 13:10 BUN/Creatinine Ratio 17.0 05/19/18 13:10 Glucose 106 mg/dL (70-105) H 05/19/18 13:10 Calcium 9.7 mg/dL (8.6-10.3) 05/19/18 13:10 Total Bilirubin 0.7 mg/dL (0.3-1.0) 05/19/18 13:10 AST 16 U/L (13-39) 05/19/18 13:10 ALT 7 U/L (7-52) 05/19/18 13:10 Alkaline Phosphatase 52 U/L (34-104) 05/19/18 13:10 Troponin I 0.01 ng/mL (0.01-0.05) 05/19/18 13:10 Total Protein 6.8 gm/dL (6.0-8.3) 05/19/18 13:10 Albumin 3.6 gm/dL (3.7-5.3) L 05/19/18 13:10 Globulin 3.2 gm/dL 05/19/18 13:10 Albumin/Globulin Ratio 1.1 (1.0-1.8) 05/19/18 13:10 Triglycerides 77 mg/dL (<150) 05/19/18 13:10 Cholesterol 228 mg/dL (<200) H 05/19/18 13:10 LDL Cholesterol Direct 157 mg/dL (75-193) 05/19/18 13:10 HDL Cholesterol 66 mg/dL (23-92) 05/19/18 13:10 TSH 1.48 uIU/ml (0.34-5.60) 05/19/18 13:10 - Physical Exam Vitals and I&O: Vital Signs Temp 97.1 F 05/21/18 06:15 Pulse 71 05/21/18 06:15 Resp 19 05/21/18 06:15 BP 138/88 05/21/18 06:15 Pulse Ox 96 05/21/18 06:15 Intake & Output 05/20/18 05/21/18 05/21/18 18:59 06:59 18:59 Intake Total 1250 120 Balance 1250 120 Intake: Oral 1250 120 Other: # Voids 3 3 # Bowel Movements 1 Active Medications: Current Medications Acetaminophen (Tylenol) 650 mg PO Q4HR PRN PRN Reason: Mild Pain / Temp above 100 Stop: 07/18/18 18:44 Acetaminophen (Tylenol) 650 mg PO Q4H PRN PRN Reason: Pain Al Hydrox/Mg Hydrox/Simethicone (Maalox) 30 ml PO Q4HR PRN PRN Reason: Constipation Stop: 07/18/18 20:13 Atorvastatin Calcium (Lipitor) 10 mg PO DAILY RAHEEM; Protocol Stop: 07/19/18 08:59 Last Admin: 05/20/18 09:49 Dose: 10 mg Bisacodyl (Dulcolax 10 Mg Supp) 10 mg RC DAILY PRN PRN Reason: IF MOM INEFFECTIVE Stop: 07/18/18 20:13 Escitalopram Oxalate (Lexapro) 5 mg PO DAILY RAHEEM; Protocol Stop: 07/19/18 08:59 Last Admin: 05/20/18 09:48 Dose: 5 mg Lorazepam (Ativan) 0.5 mg PO Q4HR PRN; Protocol PRN Reason: Agitation Stop: 06/18/18 18:44 Magnesium Hydroxide (Milk Of Magnesia) 30 ml PO HS PRN PRN Reason: Constipation Magnesium Hydroxide (Milk Of Magnesia) 30 ml PO PRN PRN PRN Reason: BOWEL MAINTENANCE Stop: 07/18/18 20:13 Multivitamins/Vitamin C (Theragran) 1 tab PO DAILY RAHEEM Stop: 07/19/18 08:59 Last Admin: 05/20/18 09:47 Dose: Not Given Risperidone (Risperdal) 0.5 mg PO HS RAHEEM; Protocol Stop: 07/19/18 20:59 Last Admin: 05/20/18 20:37 Dose: 0.5 mg Zolpidem Tartrate (Ambien) 5 mg PO HS PRN PRN Reason: Insomnia Stop: 07/18/18 18:44 General: weak HEENT: NC/AT, PERRLA, EOMI Neck: Supple, No JVD Lungs: CTAB Cardiovascular: RRR, Normal S1, Normal S2, with murmur Abdomen: soft, non-tender, globular, positive bowel sound Extremities: excoriation - Procedures Procedures: Procedures Procedure Code Date GROUP PSYCHOTHERAPY 68017 02/28/15 GROUP PSYCHOTHERAPY GZHZZZZ 02/28/15 Internal Medicine Assmt/Plan - Assessment Assessment: ASSESSMENT AND PLAN: Coronary artery disease, history of hypertension, congestive heart failure, dementia, hypercholesterolemia, low albumin. - Plan Plan: PLAN: We will place the patient on clonidine on as-needed basis. We may consider starting the patient on a calcium channel lance. Start the patient on statin medication. Labs were noted. Psychiatry to manage the patient for all psych issues. We will refer the patient's urinalysis as well as blood culture. Hemoglobin A1c was also sent. We will continue to monitor the patient closely.
[2018-05-21] MEDS: Escitalopram Oxalate 5 mg Tab PO SCH (09:12)
[2018-05-21] MEDS: Multivitamin Tab PO SCH (09:12)
[2018-05-21] MEDS: Atorvastatin Calcium 10 MG TAB PO SCH (09:12)
--- NOTE | 2018-05-21 17:10 | Progress Notes ---
DATE: 05/21/2018 SUBJECTIVE: Staff was spoken to. The patient is interviewed. Mood is noted to be irritable. Affect is constricted. The patient is isolative and withdrawn. Coping skills are noted to be very poor. The patient has been having short-term as well as long-term memory deficits. In view of her depression, the patient has been placed only on the Lexapro 5 mg in the morning and Risperdal is being given at 0.5 mg at bedtime. The patient has been able to tolerate. No side effects to the medications are noted at this time. ASSESSMENT: The patient is still depressed. PLAN: To continue the patient with the supportive therapy and followup. [facility]# [id number]
[2018-05-22] MEDS: Escitalopram Oxalate 5 mg Tab PO SCH (10:02)
[2018-05-22] MEDS: Atorvastatin Calcium 10 MG TAB PO SCH (10:03)
[2018-05-22] MEDS: Multivitamin Tab PO SCH (10:03)
--- NOTE | 2018-05-22 12:27 | Internal Medicine Prog Note ---
Internal Medicine Subjective - Subjective Patient seen and examined:: with staff, chart reviewed Patient is:: awake, verbal, interactive, in bed, denies any new complaints Per staff patient has:: no adverse event, no episodes of fall, poor appetite, noncompliant Internal Medicine Objective - Results Result Diagrams: 05/19/18 13:10 05/19/18 13:10 Recent Labs: Laboratory Last Values WBC 6.1 Th/cmm (4.8-10.8) 05/19/18 13:10 RBC 4.25 Mil/cmm (3.80-5.20) 05/19/18 13:10 Hgb 12.8 gm/dL (12-16) 05/19/18 13:10 Hct 38.7 % (41.0-60) L 05/19/18 13:10 MCV 90.9 fl (81-100) 05/19/18 13:10 MCH 30.1 pg (27.0-31.0) 05/19/18 13:10 MCHC Differential 33.1 pg (28.0-36.0) 05/19/18 13:10 RDW 14.4 % (11.5-20.0) 05/19/18 13:10 Plt Count 216 Th/cmm (150-400) 05/19/18 13:10 MPV 9.3 fl 05/19/18 13:10 Neutrophils % 56.9 % (40.0-80.0) 05/19/18 13:10 Lymphocytes % 27.7 % (20.0-50.0) 05/19/18 13:10 Monocytes % 9.1 % (2.0-10.0) 05/19/18 13:10 Eosinophils % 5.9 % (0.0-5.0) H 05/19/18 13:10 Basophils % 0.4 % (0.0-2.0) 05/19/18 13:10 PT 10.4 SECONDS (9.5-11.5) 05/19/18 13:10 INR 1.00 (0.5-1.4) 05/19/18 13:10 PTT (Actin FS) 22.4 SECONDS (26.0-38.0) L 05/19/18 13:10 Sodium 138 mEq/L (136-145) 05/19/18 13:10 Potassium 4.2 mEq/L (3.5-5.1) 05/19/18 13:10 Chloride 102 mEq/L (98-107) 05/19/18 13:10 Carbon Dioxide 27.0 mEq/L (21.0-31.0) 05/19/18 13:10 Anion Gap 13.2 (7.0-16.0) 05/19/18 13:10 BUN 17 mg/dL (7-25) 05/19/18 13:10 Creatinine 1.0 mg/dL (0.6-1.2) 05/19/18 13:10 Est GFR ( Amer) TNP 05/19/18 13:10 Est GFR (Non-Af Amer) TNP 05/19/18 13:10 BUN/Creatinine Ratio 17.0 05/19/18 13:10 Glucose 106 mg/dL (70-105) H 05/19/18 13:10 Calcium 9.7 mg/dL (8.6-10.3) 05/19/18 13:10 Total Bilirubin 0.7 mg/dL (0.3-1.0) 05/19/18 13:10 AST 16 U/L (13-39) 05/19/18 13:10 ALT 7 U/L (7-52) 05/19/18 13:10 Alkaline Phosphatase 52 U/L (34-104) 05/19/18 13:10 Troponin I 0.01 ng/mL (0.01-0.05) 05/19/18 13:10 Total Protein 6.8 gm/dL (6.0-8.3) 05/19/18 13:10 Albumin 3.6 gm/dL (3.7-5.3) L 05/19/18 13:10 Globulin 3.2 gm/dL 05/19/18 13:10 Albumin/Globulin Ratio 1.1 (1.0-1.8) 05/19/18 13:10 Triglycerides 77 mg/dL (<150) 05/19/18 13:10 Cholesterol 228 mg/dL (<200) H 05/19/18 13:10 LDL Cholesterol Direct 157 mg/dL (75-193) 05/19/18 13:10 HDL Cholesterol 66 mg/dL (23-92) 05/19/18 13:10 TSH 1.48 uIU/ml (0.34-5.60) 05/19/18 13:10 - Physical Exam Vitals and I&O: Vital Signs Temp 98.7 F 05/22/18 05:07 Pulse 108 05/22/18 05:07 Resp 18 05/22/18 05:07 BP 125/72 05/22/18 05:07 Pulse Ox 98 05/22/18 05:07 Intake & Output 05/21/18 05/22/18 05/22/18 18:59 06:59 18:59 Intake Total 240 Balance 240 Weight (lbs) 54.431 kg Intake: Oral 240 Other: # Voids 3 # Bowel Movements 1 0 Weight Source Bedscale Active Medications: Current Medications Acetaminophen (Tylenol) 650 mg PO Q4HR PRN PRN Reason: Mild Pain / Temp above 100 Stop: 07/18/18 18:44 Acetaminophen (Tylenol) 650 mg PO Q4H PRN PRN Reason: Pain Al Hydrox/Mg Hydrox/Simethicone (Maalox) 30 ml PO Q4HR PRN PRN Reason: Constipation Stop: 07/18/18 20:13 Atorvastatin Calcium (Lipitor) 10 mg PO DAILY RAHEEM; Protocol Stop: 07/19/18 08:59 Last Admin: 05/22/18 10:03 Dose: 10 mg Bisacodyl (Dulcolax 10 Mg Supp) 10 mg RC DAILY PRN PRN Reason: IF MOM INEFFECTIVE Stop: 07/18/18 20:13 Escitalopram Oxalate (Lexapro) 10 mg PO DAILY RAHEEM; Protocol Stop: 07/22/18 08:59 Lorazepam (Ativan) 0.5 mg PO Q4HR PRN; Protocol PRN Reason: Agitation Stop: 06/18/18 18:44 Magnesium Hydroxide (Milk Of Magnesia) 30 ml PO HS PRN PRN Reason: Constipation Magnesium Hydroxide (Milk Of Magnesia) 30 ml PO PRN PRN PRN Reason: BOWEL MAINTENANCE Stop: 07/18/18 20:13 Multivitamins/Vitamin C (Theragran) 1 tab PO DAILY RAHEEM Stop: 07/19/18 08:59 Last Admin: 05/22/18 10:03 Dose: 1 tab Risperidone (Risperdal) 0.5 mg PO HS RAHEEM; Protocol Stop: 07/19/18 20:59 Last Admin: 01/27/19 20:29 Dose: 0.5 mg Zolpidem Tartrate (Ambien) 5 mg PO HS PRN PRN Reason: Insomnia Stop: 07/18/18 18:44 General: weak HEENT: NC/AT, PERRLA, EOMI Neck: Supple, No JVD Lungs: CTAB Cardiovascular: RRR, Normal S1, Normal S2, with murmur Abdomen: soft, non-tender, globular, positive bowel sound Extremities: excoriation - Procedures Procedures: Procedures Procedure Code Date GROUP PSYCHOTHERAPY 20800 02/28/15 GROUP PSYCHOTHERAPY GZHZZZZ 02/28/15 Internal Medicine Assmt/Plan - Assessment Assessment: ASSESSMENT AND PLAN: Coronary artery disease, history of hypertension, congestive heart failure, dementia, hypercholesterolemia, low albumin. - Plan Plan: PLAN: We will place the patient on clonidine on as-needed basis. We may consider starting the patient on a calcium channel lance. Start the patient on statin medication. Labs were noted. Psychiatry to manage the patient for all psych issues. We will refer the patient's urinalysis as well as blood culture. Hemoglobin A1c was also sent. We will continue to monitor the patient closely.
--- NOTE | 2018-05-22 23:25 | Progress Notes ---
DATE: 05/22/2018 SUBJECTIVE: Staff was spoken to. The patient is interviewed. Mood is noted to be depressed. Affect is constricted. The patient is isolative and withdrawn. Insight and judgment at this time are noted to be still impaired. Impulse control is noted to be poor. Coping skills are noted to be very poor. The patient is still isolative and has not been getting opportunity to participate in any of the groups. No side effects to the medications are noted. In view of this and depression, it is decided to increase the dose on the Lexapro to 10 mg and follow the patient with the supportive therapy. The patient is also on 0.5 mg of the Risperdal and at nighttime and has been able to tolerate the medication. JOB# [id number]
--- NOTE | 2018-05-23 02:03 | Consultation ---
DATE OF CONSULTATION: 05/22/2018 REFERRING PHYSICIAN: Charli Herman M.D. TYPE OF CONSULTATION: Psychology. HISTORY OF PRESENT ILLNESS: The patient is an 87-year-old female. The patient is a resident of [facility]. The following is by record review and by the patient's self-report. The patient is being admitted due to acute depression. Upon interview, the patient reports that she feels depressed. The staff at the patient's facility report that she has been withdrawn and isolative as well as refusing care. The patient is reluctant to participate in this clinical interview. The staff at the patient's facility note that the patient has a tendency to become irritable, but is mostly withdrawn. The patient denied any suicidal ideation, plan or intention at the time of this clinical interview. PAST MEDICAL HISTORY: Please see history and physical by Dr. Duffy. PAST PSYCHIATRIC HISTORY: The patient has a history of major depression with psychotic symptoms. The patient is under the care of a psychiatrist at her placement. The patient has previous psychiatric hospitalizations. SUBSTANCE ABUSE HISTORY: The patient denied any history of alcohol, tobacco or illicit drug use. PSYCHOSOCIAL HISTORY: The patient denies answer questions about occupational or educational history or yarsanism affiliation. The patient denied any history of physical or sexual abuse or any current legal problems. The patient reports that she has family members involved in her care, but was not specific as to who and her specific relationships with her family. She stated she is . MENTAL STATUS EXAMINATION: The patient appears to be her stated age. The patient's attitude is superficially cooperative. Eye contact is poor. Speech is slow and delayed and soft. Mood is irritable. Affect is constricted. Thought process shows to be confused. The patient denied any auditory or visual hallucinations; however, there is evidence of possible paranoid ideation. The patient denied any suicidal ideation, plan or intention. The patient's behavior has been withdrawn and isolative. Impulse control is limited. Concentration is poor. Sensorium is alert and oriented to self only. The patient did not participate in the memory assessment. The patient did not participate in the interpretation of proverbs. Insight is poor. Judgment is compromised. DIAGNOSTIC IMPRESSION: AXIS I: 1. Major depressive disorder, recurrent with psychotic symptoms by history. 2. Dementia with behavioral disturbance. AXIS II: Deferred. AXIS III: Per Dr. Duffy. TREATMENT PLAN: The patient has been seen by Dr. Herman for psychiatric evaluation and for the management of the patient's psychotropic medications. According to the attending psychiatrist's treatment plan, the patient is started on a low dose of Lexapro and is decreasing the dosage on the patient's Risperdal. We will provide supportive psychotherapy to include reality orientation, differentiation and integration. We will provide coping strategies for phase of life issues. We will provide cognitive behavioral therapy to reduce the patient's depression if the patient is able to participate in this type of psychotherapeutic intervention. We will provide motivational enhancement for the patient to become compliant and stay compliant with all aspects of her care and treatment. We will encourage the patient to participate in the milieu therapy on the unit and to verbalize her concerns. We will provide daily opportunities for the patient to verbally contract for safety and assess for any suicidal ideation or any wish to . Thank you, Dr. Herman, for this consult and the opportunity to participate in this patient's care. JOB# [id number] MTD[facility]ive
[2018-05-23] MEDS: Multivitamin Tab PO SCH (09:27)
[2018-05-23] MEDS: Atorvastatin Calcium 10 MG TAB PO SCH (09:27)
--- NOTE | 2018-05-23 11:23 | Internal Medicine Prog Note ---
Internal Medicine Subjective - Subjective Patient seen and examined:: with staff, chart reviewed Patient is:: awake, verbal, interactive, in bed, denies any new complaints Per staff patient has:: no adverse event, no episodes of fall, poor appetite, noncompliant Internal Medicine Objective - Results Result Diagrams: 05/19/18 13:10 05/19/18 13:10 Recent Labs: Laboratory Last Values WBC 6.1 Th/cmm (4.8-10.8) 05/19/18 13:10 RBC 4.25 Mil/cmm (3.80-5.20) 05/19/18 13:10 Hgb 12.8 gm/dL (12-16) 05/19/18 13:10 Hct 38.7 % (41.0-60) L 05/19/18 13:10 MCV 90.9 fl (81-100) 05/19/18 13:10 MCH 30.1 pg (27.0-31.0) 05/19/18 13:10 MCHC Differential 33.1 pg (28.0-36.0) 05/19/18 13:10 RDW 14.4 % (11.5-20.0) 05/19/18 13:10 Plt Count 216 Th/cmm (150-400) 05/19/18 13:10 MPV 9.3 fl 05/19/18 13:10 Neutrophils % 56.9 % (40.0-80.0) 05/19/18 13:10 Lymphocytes % 27.7 % (20.0-50.0) 05/19/18 13:10 Monocytes % 9.1 % (2.0-10.0) 05/19/18 13:10 Eosinophils % 5.9 % (0.0-5.0) H 05/19/18 13:10 Basophils % 0.4 % (0.0-2.0) 05/19/18 13:10 PT 10.4 SECONDS (9.5-11.5) 05/19/18 13:10 INR 1.00 (0.5-1.4) 05/19/18 13:10 PTT (Actin FS) 22.4 SECONDS (26.0-38.0) L 05/19/18 13:10 Sodium 138 mEq/L (136-145) 05/19/18 13:10 Potassium 4.2 mEq/L (3.5-5.1) 05/19/18 13:10 Chloride 102 mEq/L (98-107) 05/19/18 13:10 Carbon Dioxide 27.0 mEq/L (21.0-31.0) 05/19/18 13:10 Anion Gap 13.2 (7.0-16.0) 05/19/18 13:10 BUN 17 mg/dL (7-25) 05/19/18 13:10 Creatinine 1.0 mg/dL (0.6-1.2) 05/19/18 13:10 Est GFR ( Amer) TNP 05/19/18 13:10 Est GFR (Non-Af Amer) TNP 05/19/18 13:10 BUN/Creatinine Ratio 17.0 05/19/18 13:10 Glucose 106 mg/dL (70-105) H 05/19/18 13:10 Calcium 9.7 mg/dL (8.6-10.3) 05/19/18 13:10 Total Bilirubin 0.7 mg/dL (0.3-1.0) 05/19/18 13:10 AST 16 U/L (13-39) 05/19/18 13:10 ALT 7 U/L (7-52) 05/19/18 13:10 Alkaline Phosphatase 52 U/L (34-104) 05/19/18 13:10 Troponin I 0.01 ng/mL (0.01-0.05) 05/19/18 13:10 Total Protein 6.8 gm/dL (6.0-8.3) 05/19/18 13:10 Albumin 3.6 gm/dL (3.7-5.3) L 05/19/18 13:10 Globulin 3.2 gm/dL 05/19/18 13:10 Albumin/Globulin Ratio 1.1 (1.0-1.8) 05/19/18 13:10 Triglycerides 77 mg/dL (<150) 05/19/18 13:10 Cholesterol 228 mg/dL (<200) H 05/19/18 13:10 LDL Cholesterol Direct 157 mg/dL (75-193) 05/19/18 13:10 HDL Cholesterol 66 mg/dL (23-92) 05/19/18 13:10 TSH 1.48 uIU/ml (0.34-5.60) 05/19/18 13:10 - Physical Exam Vitals and I&O: Vital Signs Temp 97.4 F 05/23/18 06:24 Pulse 104 05/23/18 06:24 Resp 20 05/23/18 06:24 BP 132/68 05/23/18 06:24 Pulse Ox 96 05/23/18 06:24 Intake & Output 05/22/18 05/23/18 05/23/18 18:59 06:59 18:59 Intake Total 1400 240 Balance 1400 240 Intake: Oral 1400 240 Other: # Voids 3 2 # Bowel Movements 1 Active Medications: Current Medications Acetaminophen (Tylenol) 650 mg PO Q4HR PRN PRN Reason: Mild Pain / Temp above 100 Stop: 07/18/18 18:44 Acetaminophen (Tylenol) 650 mg PO Q4H PRN PRN Reason: Pain Al Hydrox/Mg Hydrox/Simethicone (Maalox) 30 ml PO Q4HR PRN PRN Reason: Constipation Stop: 07/18/18 20:13 Atorvastatin Calcium (Lipitor) 10 mg PO DAILY RAHEEM; Protocol Stop: 07/19/18 08:59 Last Admin: 05/23/18 09:27 Dose: 10 mg Bisacodyl (Dulcolax 10 Mg Supp) 10 mg RC DAILY PRN PRN Reason: IF MOM INEFFECTIVE Stop: 07/18/18 20:13 Escitalopram Oxalate (Lexapro) 10 mg PO DAILY RAHEEM; Protocol Stop: 07/22/18 08:59 Last Admin: 05/23/18 09:27 Dose: 10 mg Lorazepam (Ativan) 0.5 mg PO Q4HR PRN; Protocol PRN Reason: Agitation Stop: 06/18/18 18:44 Magnesium Hydroxide (Milk Of Magnesia) 30 ml PO HS PRN PRN Reason: Constipation Magnesium Hydroxide (Milk Of Magnesia) 30 ml PO PRN PRN PRN Reason: BOWEL MAINTENANCE Stop: 07/18/18 20:13 Multivitamins/Vitamin C (Theragran) 1 tab PO DAILY RAHEEM Stop: 07/19/18 08:59 Last Admin: 05/23/18 09:27 Dose: 1 tab Risperidone (Risperdal) 0.5 mg PO HS RAHEEM; Protocol Stop: 07/19/18 20:59 Last Admin: 05/22/18 20:39 Dose: 0.5 mg Zolpidem Tartrate (Ambien) 5 mg PO HS PRN PRN Reason: Insomnia Stop: 07/18/18 18:44 General: weak HEENT: NC/AT, PERRLA, EOMI Neck: Supple, No JVD Lungs: CTAB Cardiovascular: RRR, Normal S1, Normal S2, with murmur Abdomen: soft, non-tender, globular, positive bowel sound Extremities: excoriation - Procedures Procedures: Procedures Procedure Code Date GROUP PSYCHOTHERAPY 18480 02/28/15 GROUP PSYCHOTHERAPY GZHZZZZ 02/28/15 Internal Medicine Assmt/Plan - Assessment Assessment: ASSESSMENT AND PLAN: Coronary artery disease, history of hypertension, congestive heart failure, dementia, hypercholesterolemia, low albumin. - Plan Plan: PLAN: We will place the patient on clonidine on as-needed basis. We may consider starting the patient on a calcium channel lance. Start the patient on statin medication. Labs were noted. Psychiatry to manage the patient for all psych issues. We will refer the patient's urinalysis as well as blood culture. Hemoglobin A1c was also sent. We will continue to monitor the patient closely.
--- NOTE | 2018-05-23 14:31 | Progress Notes ---
DATE: 05/23/2018 SUBJECTIVE: Staff was spoken to. The patient is interviewed. Mood is noted to be irritable. Affect is constricted. Coping skills are noted to be poor. The patient is isolative and withdrawn. No major behavioral problems are reported today. The patient is currently on Lexapro and has been able to tolerate. ASSESSMENT: The patient is still depressed and confused. PLAN: To continue the patient with the supportive therapy and followup. JOB# [id number]
--- NOTE | 2018-05-24 09:58 | Progress Notes ---
DATE: 05/24/2018 SUBJECTIVE: Staff was spoken to. The patient is interviewed. Mood is noted to be depressed. Affect is constricted. The patient is isolated and withdrawn. Insight and judgment at this time are noted to be still impaired. Impulse control is noted to be limited. Coping skills are noted to be limited. ASSESSMENT: The patient is still depressed. PLAN: To continue the patient with the supportive therapy. Encouraged the patient to verbalize the concerns rather than to act out. JOB# [id number]
[2018-05-24] MEDS: Atorvastatin Calcium 10 MG TAB PO SCH (10:00)
[2018-05-24] MEDS: Multivitamin Tab PO SCH (10:00)
--- NOTE | 2018-05-24 12:22 | Internal Medicine Prog Note ---
Internal Medicine Subjective - Subjective Patient seen and examined:: with staff, chart reviewed Patient is:: awake, verbal, interactive, in bed, denies any new complaints Per staff patient has:: no adverse event, no episodes of fall, poor appetite, noncompliant Internal Medicine Objective - Results Result Diagrams: 05/19/18 13:10 05/19/18 13:10 Recent Labs: Laboratory Last Values WBC 6.1 Th/cmm (4.8-10.8) 05/19/18 13:10 RBC 4.25 Mil/cmm (3.80-5.20) 05/19/18 13:10 Hgb 12.8 gm/dL (12-16) 05/19/18 13:10 Hct 38.7 % (41.0-60) L 05/19/18 13:10 MCV 90.9 fl (81-100) 05/19/18 13:10 MCH 30.1 pg (27.0-31.0) 05/19/18 13:10 MCHC Differential 33.1 pg (28.0-36.0) 05/19/18 13:10 RDW 14.4 % (11.5-20.0) 05/19/18 13:10 Plt Count 216 Th/cmm (150-400) 05/19/18 13:10 MPV 9.3 fl 05/19/18 13:10 Neutrophils % 56.9 % (40.0-80.0) 05/19/18 13:10 Lymphocytes % 27.7 % (20.0-50.0) 05/19/18 13:10 Monocytes % 9.1 % (2.0-10.0) 05/19/18 13:10 Eosinophils % 5.9 % (0.0-5.0) H 05/19/18 13:10 Basophils % 0.4 % (0.0-2.0) 05/19/18 13:10 PT 10.4 SECONDS (9.5-11.5) 05/19/18 13:10 INR 1.00 (0.5-1.4) 05/19/18 13:10 PTT (Actin FS) 22.4 SECONDS (26.0-38.0) L 05/19/18 13:10 Sodium 138 mEq/L (136-145) 05/19/18 13:10 Potassium 4.2 mEq/L (3.5-5.1) 05/19/18 13:10 Chloride 102 mEq/L (98-107) 05/19/18 13:10 Carbon Dioxide 27.0 mEq/L (21.0-31.0) 05/19/18 13:10 Anion Gap 13.2 (7.0-16.0) 05/19/18 13:10 BUN 17 mg/dL (7-25) 05/19/18 13:10 Creatinine 1.0 mg/dL (0.6-1.2) 05/19/18 13:10 Est GFR ( Amer) TNP 05/19/18 13:10 Est GFR (Non-Af Amer) TNP 05/19/18 13:10 BUN/Creatinine Ratio 17.0 05/19/18 13:10 Glucose 106 mg/dL (70-105) H 05/19/18 13:10 Calcium 9.7 mg/dL (8.6-10.3) 05/19/18 13:10 Total Bilirubin 0.7 mg/dL (0.3-1.0) 05/19/18 13:10 AST 16 U/L (13-39) 05/19/18 13:10 ALT 7 U/L (7-52) 05/19/18 13:10 Alkaline Phosphatase 52 U/L (34-104) 05/19/18 13:10 Troponin I 0.01 ng/mL (0.01-0.05) 05/19/18 13:10 Total Protein 6.8 gm/dL (6.0-8.3) 05/19/18 13:10 Albumin 3.6 gm/dL (3.7-5.3) L 05/19/18 13:10 Globulin 3.2 gm/dL 05/19/18 13:10 Albumin/Globulin Ratio 1.1 (1.0-1.8) 05/19/18 13:10 Triglycerides 77 mg/dL (<150) 05/19/18 13:10 Cholesterol 228 mg/dL (<200) H 05/19/18 13:10 LDL Cholesterol Direct 157 mg/dL (75-193) 05/19/18 13:10 HDL Cholesterol 66 mg/dL (23-92) 05/19/18 13:10 TSH 1.48 uIU/ml (0.34-5.60) 05/19/18 13:10 - Physical Exam Vitals and I&O: Vital Signs Temp 97.8 F 05/23/18 20:23 Pulse 67 05/23/18 20:23 Resp 19 05/23/18 20:23 BP 125/52 05/23/18 20:23 Pulse Ox 97 05/23/18 20:23 Intake & Output 05/23/18 05/24/18 05/24/18 18:59 06:59 18:59 Intake Total 700 120 Output Total 1 Balance 700 119 Intake: Oral 700 120 Output: Urine/Stool Mix 1 Other: # Voids 2 1 # Bowel Movements 0 Active Medications: Current Medications Acetaminophen (Tylenol) 650 mg PO Q4HR PRN PRN Reason: Mild Pain / Temp above 100 Stop: 07/18/18 18:44 Acetaminophen (Tylenol) 650 mg PO Q4H PRN PRN Reason: Pain Al Hydrox/Mg Hydrox/Simethicone (Maalox) 30 ml PO Q4HR PRN PRN Reason: Constipation Stop: 07/18/18 20:13 Atorvastatin Calcium (Lipitor) 10 mg PO DAILY RAHEEM; Protocol Stop: 07/19/18 08:59 Last Admin: 05/24/18 10:00 Dose: 10 mg Bisacodyl (Dulcolax 10 Mg Supp) 10 mg RC DAILY PRN PRN Reason: IF MOM INEFFECTIVE Stop: 07/18/18 20:13 Escitalopram Oxalate (Lexapro) 10 mg PO DAILY RAHEEM; Protocol Stop: 07/22/18 08:59 Last Admin: 05/24/18 10:00 Dose: 10 mg Lorazepam (Ativan) 0.5 mg PO Q4HR PRN; Protocol PRN Reason: Agitation Stop: 06/18/18 18:44 Magnesium Hydroxide (Milk Of Magnesia) 30 ml PO HS PRN PRN Reason: Constipation Magnesium Hydroxide (Milk Of Magnesia) 30 ml PO PRN PRN PRN Reason: BOWEL MAINTENANCE Stop: 07/18/18 20:13 Multivitamins/Vitamin C (Theragran) 1 tab PO DAILY RAHEEM Stop: 07/19/18 08:59 Last Admin: 05/24/18 10:00 Dose: 1 tab Zolpidem Tartrate (Ambien) 5 mg PO HS PRN PRN Reason: Insomnia Stop: 07/18/18 18:44 General: weak HEENT: NC/AT, PERRLA, EOMI Neck: Supple, No JVD Lungs: CTAB Cardiovascular: RRR, Normal S1, Normal S2, with murmur Abdomen: soft, non-tender, globular, positive bowel sound Extremities: excoriation - Procedures Procedures: Procedures Procedure Code Date GROUP PSYCHOTHERAPY 20820 02/28/15 GROUP PSYCHOTHERAPY GZHZZZZ 02/28/15 Internal Medicine Assmt/Plan - Assessment Assessment: ASSESSMENT AND PLAN: Coronary artery disease, history of hypertension, congestive heart failure, dementia, hypercholesterolemia, low albumin. - Plan Plan: PLAN: We will place the patient on clonidine on as-needed basis. We may consider starting the patient on a calcium channel lance. Start the patient on statin medication. Labs were noted. Psychiatry to manage the patient for all psych issues. We will refer the patient's urinalysis as well as blood culture. Hemoglobin A1c was also sent. We will continue to monitor the patient closely. Nutritional Asmnt/Malnutr-PDOC - Dietary Evaluation Malnutrition Findings (Please click <Entered> for more info): Nutritional Asmnt/Malnutrition Start: 05/24/18 12: 17 Text: Status: Active Freq: Protocol: Document 05/24/18 12:17 HELIO (Rec: 05/24/18 12:17 [email or web address] [email or web address]) Nutritional Asmnt/Malnutrition Patient General Information Nutritional Screening Moderate Risk Diagnosis Psychosis
--- NOTE | 2018-05-25 07:10 | Progress Notes ---
DATE: 05/24/2018 SUBJECTIVE: The patient is seen and interviewed. Case is discussed with staff. The patient presents as depressed and sullen. Affect is constricted. The patient appears to continue to be withdrawn. The patient is confused about the reasons for her hospitalization. The patient continues to be difficult to redirect according to the staff. OBJECTIVE: Mood: depressed. Affect: sullen and sad. Thought process is depressogenic and confused. The patient denied any hallucinations or delusions. The patient did not answer questions about experiencing suicidal ideation, plan or intention. There may be a passive wish to . This needs further evaluation. The patient's behavior is difficult to redirect. ASSESSMENT AND PLAN: The patient continues to be quite depressed. We provided supportive therapy to include coping strategies for phase of life issues. We provided reality integration. We provided remotivation for the patient to become compliant with her treatment. We encouraged the patient to attend the group and milieu therapy versus isolating in her room. We encouraged the patient to verbalize her concerns and interact with the staff as well as the treating providers. We will follow up in 2-3 days to continue the present treatment. Prognosis is fair to poor. JOB# [id number] SOFIA
[2018-05-25] MEDS: Multivitamin Tab PO SCH (10:00)
[2018-05-25] MEDS: Atorvastatin Calcium 10 MG TAB PO SCH (10:00)
--- NOTE | 2018-05-25 11:31 | Internal Medicine Prog Note ---
Internal Medicine Subjective - Subjective Patient seen and examined:: with staff, chart reviewed Patient is:: awake, verbal, interactive, in bed, denies any new complaints Per staff patient has:: no adverse event, no episodes of fall, poor appetite, noncompliant Internal Medicine Objective - Results Result Diagrams: 05/19/18 13:10 05/19/18 13:10 Recent Labs: Laboratory Last Values WBC 6.1 Th/cmm (4.8-10.8) 05/19/18 13:10 RBC 4.25 Mil/cmm (3.80-5.20) 05/19/18 13:10 Hgb 12.8 gm/dL (12-16) 05/19/18 13:10 Hct 38.7 % (41.0-60) L 05/19/18 13:10 MCV 90.9 fl (81-100) 05/19/18 13:10 MCH 30.1 pg (27.0-31.0) 05/19/18 13:10 MCHC Differential 33.1 pg (28.0-36.0) 05/19/18 13:10 RDW 14.4 % (11.5-20.0) 05/19/18 13:10 Plt Count 216 Th/cmm (150-400) 05/19/18 13:10 MPV 9.3 fl 05/19/18 13:10 Neutrophils % 56.9 % (40.0-80.0) 05/19/18 13:10 Lymphocytes % 27.7 % (20.0-50.0) 05/19/18 13:10 Monocytes % 9.1 % (2.0-10.0) 05/19/18 13:10 Eosinophils % 5.9 % (0.0-5.0) H 05/19/18 13:10 Basophils % 0.4 % (0.0-2.0) 05/19/18 13:10 PT 10.4 SECONDS (9.5-11.5) 05/19/18 13:10 INR 1.00 (0.5-1.4) 05/19/18 13:10 PTT (Actin FS) 22.4 SECONDS (26.0-38.0) L 05/19/18 13:10 Sodium 138 mEq/L (136-145) 05/19/18 13:10 Potassium 4.2 mEq/L (3.5-5.1) 05/19/18 13:10 Chloride 102 mEq/L (98-107) 05/19/18 13:10 Carbon Dioxide 27.0 mEq/L (21.0-31.0) 05/19/18 13:10 Anion Gap 13.2 (7.0-16.0) 05/19/18 13:10 BUN 17 mg/dL (7-25) 05/19/18 13:10 Creatinine 1.0 mg/dL (0.6-1.2) 05/19/18 13:10 Est GFR ( Amer) TNP 05/19/18 13:10 Est GFR (Non-Af Amer) TNP 05/19/18 13:10 BUN/Creatinine Ratio 17.0 05/19/18 13:10 Glucose 106 mg/dL (70-105) H 05/19/18 13:10 Calcium 9.7 mg/dL (8.6-10.3) 05/19/18 13:10 Total Bilirubin 0.7 mg/dL (0.3-1.0) 05/19/18 13:10 AST 16 U/L (13-39) 05/19/18 13:10 ALT 7 U/L (7-52) 05/19/18 13:10 Alkaline Phosphatase 52 U/L (34-104) 05/19/18 13:10 Troponin I 0.01 ng/mL (0.01-0.05) 05/19/18 13:10 Total Protein 6.8 gm/dL (6.0-8.3) 05/19/18 13:10 Albumin 3.6 gm/dL (3.7-5.3) L 05/19/18 13:10 Globulin 3.2 gm/dL 05/19/18 13:10 Albumin/Globulin Ratio 1.1 (1.0-1.8) 05/19/18 13:10 Triglycerides 77 mg/dL (<150) 05/19/18 13:10 Cholesterol 228 mg/dL (<200) H 05/19/18 13:10 LDL Cholesterol Direct 157 mg/dL (75-193) 05/19/18 13:10 HDL Cholesterol 66 mg/dL (23-92) 05/19/18 13:10 TSH 1.48 uIU/ml (0.34-5.60) 05/19/18 13:10 - Physical Exam Vitals and I&O: Vital Signs Temp 98.2 F 05/25/18 05:38 Pulse 97 05/25/18 05:38 Resp 19 05/25/18 05:38 BP 123/77 05/25/18 05:38 Pulse Ox 98 05/25/18 05:38 Intake & Output 05/24/18 05/25/18 05/25/18 18:59 06:59 18:59 Intake Total 1200 Balance 1200 Weight (lbs) 54.431 kg Intake: Oral 1200 Other: # Voids 3 # Bowel Movements 1 0 Weight Source Bedscale Active Medications: Current Medications Acetaminophen (Tylenol) 650 mg PO Q4HR PRN PRN Reason: Mild Pain / Temp above 100 Stop: 07/18/18 18:44 Acetaminophen (Tylenol) 650 mg PO Q4H PRN PRN Reason: Pain Al Hydrox/Mg Hydrox/Simethicone (Maalox) 30 ml PO Q4HR PRN PRN Reason: Constipation Stop: 07/18/18 20:13 Atorvastatin Calcium (Lipitor) 10 mg PO DAILY RAHEEM; Protocol Stop: 07/19/18 08:59 Last Admin: 05/25/18 10:00 Dose: Not Given Bisacodyl (Dulcolax 10 Mg Supp) 10 mg RC DAILY PRN PRN Reason: IF MOM INEFFECTIVE Stop: 07/18/18 20:13 Escitalopram Oxalate (Lexapro) 10 mg PO DAILY RAHEEM; Protocol Stop: 07/22/18 08:59 Last Admin: 05/25/18 10:00 Dose: Not Given Lorazepam (Ativan) 0.5 mg PO Q4HR PRN; Protocol PRN Reason: Agitation Stop: 06/18/18 18:44 Magnesium Hydroxide (Milk Of Magnesia) 30 ml PO HS PRN PRN Reason: Constipation Magnesium Hydroxide (Milk Of Magnesia) 30 ml PO PRN PRN PRN Reason: BOWEL MAINTENANCE Stop: 07/18/18 20:13 Multivitamins/Vitamin C (Theragran) 1 tab PO DAILY RAHEEM Stop: 07/19/18 08:59 Last Admin: 05/25/18 10:00 Dose: Not Given Zolpidem Tartrate (Ambien) 5 mg PO HS PRN PRN Reason: Insomnia Stop: 07/18/18 18:44 General: weak HEENT: NC/AT, PERRLA, EOMI Neck: Supple, No JVD Lungs: CTAB Cardiovascular: RRR, Normal S1, Normal S2, with murmur Abdomen: soft, non-tender, globular, positive bowel sound Extremities: excoriation - Procedures Procedures: Procedures Procedure Code Date GROUP PSYCHOTHERAPY 57546 02/28/15 GROUP PSYCHOTHERAPY GZHZZZZ 02/28/15 Internal Medicine Assmt/Plan - Assessment Assessment: ASSESSMENT AND PLAN: Coronary artery disease, history of hypertension, congestive heart failure, dementia, hypercholesterolemia, low albumin. - Plan Plan: PLAN: We will place the patient on clonidine on as-needed basis. We may consider starting the patient on a calcium channel lance. Start the patient on statin medication. Labs were noted. Psychiatry to manage the patient for all psych issues. We will refer the patient's urinalysis as well as blood culture. Hemoglobin A1c was also sent. We will continue to monitor the patient closely. Nutritional Asmnt/Malnutr-PDOC - Dietary Evaluation Malnutrition Findings (Please click <Entered> for more info): Nutritional Asmnt/Malnutrition Start: 05/24/18 12: 17 Text: Status: Active Freq: Protocol: Document 05/24/18 12:17 [email or web address] (Rec: 05/24/18 12:17 [email or web address]) Nutritional Asmnt/Malnutrition Patient General Information Nutritional Screening Moderate Risk Diagnosis Psychosis Pertinent Medical Hx/Surgical Hx HTN, CAD, CHF, Pacemaker, Dementia, Subjective Information Pt is residential resident requiring 24hr care. Nurse's notes describe a lady who sleeps alot and is compliant with all directions. Pt was asleep during visit, nurse described someone who eats very little (~30-40% Breakfast consumed) yet seems to prefer liquids to solid foods. Discussed supplementing Ensure plus TID with nurse. Current Diet Order/ Nutrition Support [facility] Soft Chopped Pertinent Medications Maalox, Lipitor, Dulcolax, MOM , Vit C, Ambien Pertinent Labs (05/19) Gluc 106 H, Alb 3.6 L, Cholest 228 H Nutritional Hx/Data Height 1.57 m Height (Calculated Centimeters) 157.5 Current Weight (lbs) 54.431 kg Weight (Calculated Kilograms) 54.4 Weight (Calculated Grams) 96665.1 [place] Body Weight 110 % [place] Body Weight 109 Body Mass Index (BMI) 21.9 Weight Status Approriate GI Symptoms Last BM 1 x (05/23) Food Allergies No: None noted. Cultural/Ethnic/Tenriism Belief None noted Skin Integrity/Comment: Rolf Bartlett Current %PO Poor (25-49%) Estimated Nutritional Goals BEE in Kcals: Adj wt of IBW Calories/Kcals/Kg 25-30 Kcals Calculated 7639-1380 Protein: Adj wt of IBW Protein g/k.8-1 Protein Calculated 41-51 Fluid: ml 9461-9752 Nutritional Problem 1. Problem Problem Pt has inadequate oral food intake aeb Etiology near constant sleeping in her bed, even during meals Signs/Symptoms: ~30-40% PO intake during breakfast this morning. No current Nutrition Prob Problem N/A Malnutrition Alert Is there a minimum of two criteria No selected? Query Text:Check all the applicable criteria. A minimum of two criteria are recommended for diagnosis of either severe or non-severe malnutrition. Malnutrition Related to Morbid Obesity Malnutrition related to morbid obesity No Intervention/Recommendation Recommendations by RD Add supplement feedings Comments Recommmend adding Ensure Plus TID to her diet order in order to help increase her PO intake whenever she wakes. Consider rechecking cholest, Gluc labs for an updated value . Expected Outcomes/Goals Expected Outcomes/Goals 1. Maintain >75% PO intake 2. Nutrition labs return to WNL 3. F/U in 7 days as LR
--- NOTE | 2018-05-25 17:20 | Progress Notes ---
DATE: 05/25/2018 SUBJECTIVE: Staff was spoken to. The patient is interviewed. Mood is noted to be less irritable. The patient is isolative and withdrawn. Mood is noted to be still depressed. Affect is constricted. No side effects to the medications are noted. The patient has been able to verbalize her concerns. No major behavioral problems are reported today. ASSESSMENT: The patient is stabilizing. PLAN: To continue the patient with the current medications and followup. JOB# [id number]
[2018-05-26] MEDS: Multivitamin Tab PO SCH (10:00)
[2018-05-26] MEDS: Atorvastatin Calcium 10 MG TAB PO SCH (10:00)
--- NOTE | 2018-05-26 12:48 | Internal Medicine Prog Note ---
Internal Medicine Subjective - Subjective Patient seen and examined:: with staff, chart reviewed Patient is:: awake, verbal, interactive, in bed, denies any new complaints Per staff patient has:: no adverse event, no episodes of fall, poor appetite, noncompliant Internal Medicine Objective - Results Result Diagrams: 05/19/18 13:10 05/19/18 13:10 Recent Labs: Laboratory Last Values WBC 6.1 Th/cmm (4.8-10.8) 05/19/18 13:10 RBC 4.25 Mil/cmm (3.80-5.20) 05/19/18 13:10 Hgb 12.8 gm/dL (12-16) 05/19/18 13:10 Hct 38.7 % (41.0-60) L 05/19/18 13:10 MCV 90.9 fl (81-100) 05/19/18 13:10 MCH 30.1 pg (27.0-31.0) 05/19/18 13:10 MCHC Differential 33.1 pg (28.0-36.0) 05/19/18 13:10 RDW 14.4 % (11.5-20.0) 05/19/18 13:10 Plt Count 216 Th/cmm (150-400) 05/19/18 13:10 MPV 9.3 fl 05/19/18 13:10 Neutrophils % 56.9 % (40.0-80.0) 05/19/18 13:10 Lymphocytes % 27.7 % (20.0-50.0) 05/19/18 13:10 Monocytes % 9.1 % (2.0-10.0) 05/19/18 13:10 Eosinophils % 5.9 % (0.0-5.0) H 05/19/18 13:10 Basophils % 0.4 % (0.0-2.0) 05/19/18 13:10 PT 10.4 SECONDS (9.5-11.5) 05/19/18 13:10 INR 1.00 (0.5-1.4) 05/19/18 13:10 PTT (Actin FS) 22.4 SECONDS (26.0-38.0) L 05/19/18 13:10 Sodium 138 mEq/L (136-145) 05/19/18 13:10 Potassium 4.2 mEq/L (3.5-5.1) 05/19/18 13:10 Chloride 102 mEq/L (98-107) 05/19/18 13:10 Carbon Dioxide 27.0 mEq/L (21.0-31.0) 05/19/18 13:10 Anion Gap 13.2 (7.0-16.0) 05/19/18 13:10 BUN 17 mg/dL (7-25) 05/19/18 13:10 Creatinine 1.0 mg/dL (0.6-1.2) 05/19/18 13:10 Est GFR ( Amer) TNP 05/19/18 13:10 Est GFR (Non-Af Amer) TNP 05/19/18 13:10 BUN/Creatinine Ratio 17.0 05/19/18 13:10 Glucose 106 mg/dL (70-105) H 05/19/18 13:10 Calcium 9.7 mg/dL (8.6-10.3) 05/19/18 13:10 Total Bilirubin 0.7 mg/dL (0.3-1.0) 05/19/18 13:10 AST 16 U/L (13-39) 05/19/18 13:10 ALT 7 U/L (7-52) 05/19/18 13:10 Alkaline Phosphatase 52 U/L (34-104) 05/19/18 13:10 Troponin I 0.01 ng/mL (0.01-0.05) 05/19/18 13:10 Total Protein 6.8 gm/dL (6.0-8.3) 05/19/18 13:10 Albumin 3.6 gm/dL (3.7-5.3) L 05/19/18 13:10 Globulin 3.2 gm/dL 05/19/18 13:10 Albumin/Globulin Ratio 1.1 (1.0-1.8) 05/19/18 13:10 Triglycerides 77 mg/dL (<150) 05/19/18 13:10 Cholesterol 228 mg/dL (<200) H 05/19/18 13:10 LDL Cholesterol Direct 157 mg/dL (75-193) 05/19/18 13:10 HDL Cholesterol 66 mg/dL (23-92) 05/19/18 13:10 TSH 1.48 uIU/ml (0.34-5.60) 05/19/18 13:10 - Physical Exam Vitals and I&O: Vital Signs Temp 97.4 F 05/26/18 06:00 Pulse 70 05/26/18 06:00 Resp 18 05/26/18 06:00 BP 132/61 05/26/18 06:00 Pulse Ox 96 05/26/18 06:00 Intake & Output 05/25/18 05/26/18 05/26/18 18:59 06:59 18:59 Intake Total 800 120 Balance 800 120 Intake: Oral 800 120 Other: # Voids 3 3 # Bowel Movements 0 Active Medications: Current Medications Acetaminophen (Tylenol) 650 mg PO Q4HR PRN PRN Reason: Mild Pain / Temp above 100 Stop: 07/18/18 18:44 Acetaminophen (Tylenol) 650 mg PO Q4H PRN PRN Reason: Pain Al Hydrox/Mg Hydrox/Simethicone (Maalox) 30 ml PO Q4HR PRN PRN Reason: Constipation Stop: 07/18/18 20:13 Atorvastatin Calcium (Lipitor) 10 mg PO DAILY [facility]; Protocol Stop: 07/19/18 08:59 Last Admin: 05/26/18 10:00 Dose: Not Given Bisacodyl (Dulcolax 10 Mg Supp) 10 mg RC DAILY PRN PRN Reason: IF MOM INEFFECTIVE Stop: 07/18/18 20:13 Escitalopram Oxalate (Lexapro) 10 mg PO DAILY [facility]; Protocol Stop: 07/22/18 08:59 Last Admin: 05/26/18 10:00 Dose: Not Given Lorazepam (Ativan) 0.5 mg PO Q4HR PRN; Protocol PRN Reason: Agitation Stop: 06/18/18 18:44 Magnesium Hydroxide (Milk Of Magnesia) 30 ml PO HS PRN PRN Reason: Constipation Magnesium Hydroxide (Milk Of Magnesia) 30 ml PO PRN PRN PRN Reason: BOWEL MAINTENANCE Stop: 07/18/18 20:13 Multivitamins/Vitamin C (Theragran) 1 tab PO DAILY [facility] Stop: 07/19/18 08:59 Last Admin: 05/26/18 10:00 Dose: Not Given Zolpidem Tartrate (Ambien) 5 mg PO HS PRN PRN Reason: Insomnia Stop: 07/18/18 18:44 General: weak HEENT: NC/AT, PERRLA, EOMI Neck: Supple, No JVD Lungs: CTAB Cardiovascular: RRR, Normal S1, Normal S2, with murmur Abdomen: soft, non-tender, globular, positive bowel sound Extremities: excoriation - Procedures Procedures: Procedures Procedure Code Date GROUP PSYCHOTHERAPY 14754 02/28/15 GROUP PSYCHOTHERAPY GZHZZZZ 02/28/15 Internal Medicine Assmt/Plan - Assessment Assessment: ASSESSMENT AND PLAN: Coronary artery disease, history of hypertension, congestive heart failure, dementia, hypercholesterolemia, low albumin. - Plan Plan: PLAN: We will place the patient on clonidine on as-needed basis. We may consider starting the patient on a calcium channel lance. Start the patient on statin medication. Labs were noted. Psychiatry to manage the patient for all psych issues. We will refer the patient's urinalysis as well as blood culture. Hemoglobin A1c was also sent. We will continue to monitor the patient closely. Nutritional Asmnt/Malnutr-PDOC - Dietary Evaluation Malnutrition Findings (Please click <Entered> for more info): Nutritional Asmnt/Malnutrition Start: 05/24/18 12: 17 Text: Status: Active Freq: Protocol: Document 05/24/18 12:17 RHAQUE (Rec: 05/24/18 12:17 RHAQUE [email or web address]) Nutritional Asmnt/Malnutrition Patient General Information Nutritional Screening Moderate Risk Diagnosis Psychosis Pertinent Medical Hx/Surgical Hx HTN, CAD, CHF, Pacemaker, Dementia, Subjective Information Pt is senior care resident requiring 24hr care. Nurse's notes describe a lady who sleeps alot and is compliant with all directions. Pt was asleep during visit, nurse described someone who eats very little (~30-40% Breakfast consumed) yet seems to prefer liquids to solid foods. Discussed supplementing Ensure plus TID with nurse. Current Diet Order/ Nutrition Support [facility] Soft Chopped Pertinent Medications Maalox, Lipitor, Dulcolax, MOM , Vit C, Ambien Pertinent Labs (05/19) Gluc 106 H, Alb 3.6 L, Cholest 228 H Nutritional Hx/Data Height 1.57 m Height (Calculated Centimeters) 157.5 Current Weight (lbs) 54.431 kg Weight (Calculated Kilograms) 54.4 Weight (Calculated Grams) 94239.1 [place] Body Weight 110 % [place] Body Weight 109 Body Mass Index (BMI) 21.9 Weight Status Approriate GI Symptoms Last BM 1 x (05/23) Food Allergies No: None noted. Cultural/Ethnic/Taoist Belief None noted Skin Integrity/Comment: Rolf Bartlett Current %PO Poor (25-49%) Estimated Nutritional Goals BEE in Kcals: Adj wt of IBW Calories/Kcals/Kg 25-30 Kcals Calculated 2748-6897 Protein: Adj wt of IBW Protein g/k.8-1 Protein Calculated 41-51 Fluid: ml 2239-0992 Nutritional Problem 1. Problem Problem Pt has inadequate oral food intake aeb Etiology near constant sleeping in her bed, even during meals Signs/Symptoms: ~30-40% PO intake during breakfast this morning. No current Nutrition Prob Problem N/A Malnutrition Alert Is there a minimum of two criteria No selected? Query Text:Check all the applicable criteria. A minimum of two criteria are recommended for diagnosis of either severe or non-severe malnutrition. Malnutrition Related to Morbid Obesity Malnutrition related to morbid obesity No Intervention/Recommendation Recommendations by RD Add supplement feedings Comments Recommmend adding Ensure Plus TID to her diet order in order to help increase her PO intake whenever she wakes. Consider rechecking cholest, Gluc labs for an updated value . Expected Outcomes/Goals Expected Outcomes/Goals 1. Maintain >75% PO intake 2. Nutrition labs return to WNL 3. F/U in 7 days as LR
--- NOTE | 2018-05-26 19:42 | Progress Notes ---
DATE: 05/26/2018 SUBJECTIVE: The patient is seen and interviewed. Case is discussed with staff. The patient presents as less irritable and more cooperative. The staff reports that the patient continues to be mostly withdrawn and isolates in her room. The patient reports that she continues to feel depressed. OBJECTIVE: Mood depressed. Affect is constricted. Thought process is depressogenic. The patient denied any hallucinations or delusions. The patient's behavior is compliant with care. ASSESSMENT AND PLAN: The patient appears to be stabilizing. However, the patient continues to feel depressed. This has lessened. We provided coping strategies for phase of life issues and to adjust to the patient's placement and lifestyle in a long-term care facility. We provided cognitive behavioral therapy. The patient responded minimally to this. We provided positive reinforcement for the patient to continue to stay compliant with all aspects of her care and treatment. We will follow up in 2-3 days to continue present treatment if the patient is still admitted. [facility]# [id number] SOFIA
--- NOTE | 2018-05-28 15:04 | Discharge Summary ---
DATE OF DISCHARGE: 05/26/2018 PSYCHIATRIC DISCHARGE SUMMARY IDENTIFYING DATA: The patient is an 87-year-old -[place] woman, resident of [facility] in [place]. Information obtained by directly interviewing the patient as well as reviewing the admission papers. JUSTIFICATION OF HOSPITALIZATION: The patient is admitted on a voluntary basis in view of her depression and isolation. CHIEF COMPLAINT: "I'm feeling depressed." DIAGNOSES AT THE TIME OF ADMISSION: AXIS I: 1. Major depressive disorder, recurrent with psychotic symptoms. 2. 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 AXIS II: None. AXIS III: As per the primary care physician. HISTORY OF PRESENT ILLNESS: Please refer to the 05/20/2018 dictation done by me. Physical examination at the time of the admission was done by Dr. Duffy and the blood work done at the time of the hospitalization has been reviewed by him. HOSPITAL COURSE AND RESPONSE TO TREATMENT: The patient has been closely monitored and encouraged to verbalize the concerns rather than to act out. The patient has been isolative and withdrawn for most of the time. Initially, the patient was on Risperdal that has been discontinued and the patient has been continued on the citalopram, which was given 5 mg and was gradually increased to 10 mg. The patient started to do fairly well. No major behavioral problems are noted. Hence, the patient was discharged. MENTAL STATUS EXAMINATION: At the time of discharge, the patient's mood is noted to be less irritable. Affect is appropriate. Not suicidal or homicidal. Insight and judgment are noted to be fair. Impulse control is also noted to be fair at the time of the discharge. No major behavioral problems are noted at the time of the discharge. CONDITION: At the time of discharge noted to be stable. JOB# [id number]
== END 2018-05-26 14:00 | DRG 885 ==
LOC: ER 12:33 → GERO 15:51
PROVIDERS: ADMIT Psychiatry & Neurology Psychiatry; ATTEND Psychiatry & Neurology Psychiatry
DX: F33.3 Major depressive disorder, recurrent, severe with psychotic symptoms (principal); I11.0 Hypertensive heart disease with heart failure; F03.91 Unspecified dementia, unspecified severity, with behavioral disturbance; I50.9 Heart failure, unspecified; I25.10 Atherosclerotic heart disease of native coronary artery without angina pectoris; E78.00 Pure hypercholesterolemia, unspecified; Z91.14 Patient's other noncompliance with medication regimen; Z95.0 Presence of cardiac pacemaker; Z88.0 Allergy status to penicillin
CPT/HCPCS: 36415-UA; 71045-TC; 80053-TC; 80061-TC; 83036-90; 84443-TC; 84484-TC; 85025-TC; 85610-TC; 85730-TC; 93005

== ENCOUNTER 2019-01-15 18:05 | Inpatient (IN) | payer MEDICARE, OTHER ==
[2019-01-16 01:12] VITALS: BP 150/72
[2019-01-16] MEDS ORDERED: Magnesium Hydroxide (MOM) 30 mL UDC PO PRN (01:58)
[2019-01-16] MEDS ORDERED: Hydrocodone/APAP 5mg/325mg Tab PO PRN (02:18)
[2019-01-16] MEDS: Apixaban 5 MG TABLET PO SCH ×2 (09:18→17:07)
[2019-01-16] MEDS: Atorvastatin Calcium 10 MG TAB PO SCH (09:19)
[2019-01-16] MEDS: Escitalopram Oxalate 5 mg Tab PO SCH (09:19)
--- NOTE | 2019-01-16 21:32 | Consultation ---
DATE OF CONSULTATION: 01/16/2019 REASON FOR CONSULTATION: Medical management and clearance. The patient is admitted to inpatient unit. HISTORY OF PRESENT ILLNESS: This is an 88-year-old -Ivorian female with history of hypertension, history of stroke with left-sided weakness, CAD, status post pacemaker, admitted under the service of Dr. Borjas. The patient denies any chest pain or shortness of breath. PAST MEDICAL HISTORY: As mentioned in history of present illness. PAST SURGICAL HISTORY: Status post pacemaker. ALLERGIES: PENICILLIN. MEDICATIONS: The patient is on Tylenol, Lipitor, clonidine, Ativan, magnesium, multivitamin, Risperdal, and Ambien. FAMILY HISTORY: Noncontributory. SOCIAL HISTORY: The patient is a assisted patient, nonsmoker, nondrinker, used to work, ____ with 4 children. REVIEW OF SYSTEMS: GENERAL: Complains not feeling well. HEENT: No blurred vision. LUNGS: No diagnosis of COPD or asthma. HEART: The patient with CAD and pacemaker. ABDOMEN: No nausea, vomiting or pain. GENITOURINARY: The patient denies increased frequency or dysuria. The patient with recent diagnosis of UTI. NEUROLOGIC: No headache. The patient with history of stroke. No seizures. PSYCHIATRIC: Stable. PHYSICAL EXAMINATION: VITAL SIGNS: Blood pressure 96/54, respirations 20, pulse 82, temperature 97.6. GENERAL: Elderly female, chronically ill. ____. LUNGS: Decreased breath sounds, few rhonchi. HEART: Regular rate and rhythm. Systolic ejection murmur. ABDOMEN: Soft, globular. EXTREMITIES: Positive excoriation. NEUROLOGIC: Limited left-sided weakness, upper extremity and lower extremity. Gait is not seen. LABORATORY DATA: Noted, hemoglobin 11, platelets are within normal range. UA showed positive leukocyte, nitrite. ASSESSMENT AND PLAN: Urinary tract infection, dysphagia, anemia, hypertension, history of stroke with left-sided weakness, CAD, status post pacemaker, hypercholesterolemia. Continue the patient on p.o. antibiotic. Continue on low sodium diet. We will titrate the patient's antihypertensive medication. Continue statin medication. Continue with current care. I will follow up with you, Dr. Borjas. JOB# [id number]
--- NOTE | 2019-01-17 03:59 | Psychiatric Evaluation ---
DATE OF SERVICE: 01/16/2019 PATIENT'S AGE: 88. SEX: Female. PHYSICIAN: Dr. Borjas. CHIEF COMPLAINT: Depression. HISTORY OF PRESENT ILLNESS: The patient is an 88-year-old female who was transferred from [facility] because of increased agitation and because of increased depression. The patient has been severely depressed and has been feeling hopeless and helpless. The patient also has been withdrawn. Chart reviewed and the patient interviewed. The patient is severely depressed. She hardly answers questions except that she said that she has 4 children and that she has been feeling severely depressed. She denies any intention to harm herself, but she said that she is feeling hopeless and helpless and she has lack of energy and lack of motivations. The patient also has been having a decrease in her appetite and her energy level. Also, she lost unknown amount of weight. Currently, she only weighs 100 pounds. PAST PSYCHIATRIC HISTORY: Nothing mentioned. The patient denies. PAST MEDICAL HISTORY: The patient has hypertension. SOCIAL HISTORY: The patient lives in [facility]. The patient has 4 children. No known alcohol or drug use. ALLERGIES: No known allergies. MENTAL STATUS EXAMINATION: The patient appears her stated age. Sad affect. In a depressed mood. Thought processes are mainly goal directed. The patient also is very slow to respond and also reluctant to answer questions and wanted to be left alone. The patient is alert and oriented to situation, but not to date or person. Impaired immediate and recent memory, but intact remote memory. Fair insight and fair judgment. ASSESSMENT: PRIMARY DIAGNOSIS: Depressive mood disorder, moderate to severe, without psychotic features. TREATMENT PLAN: We will monitor the patient's behavior closely. We will start the patient on Lexapro 5 mg every day and will adjust the dose. Also, we will work on her ineffective coping. ESTIMATED LENGTH OF STAY: 5-7 days. PATIENT'S STRENGTHS AND WEAKNESSES: The patient's strengths is that she seems to be in relatively fair health and cooperative with her treatment. Weaknesses is her ineffective coping. AFTER DISCHARGE PLAN: The patient will return to [facility] and outpatient treatment and follow up there. CRITERIA FOR DISCHARGE: The patient will not be depressed and will stabilize with psychotropic medications and will establish outpatient treatment plans. [facility]# [id number]
[2019-01-17] MEDS: Escitalopram Oxalate 5 mg Tab PO SCH (08:58)
[2019-01-17] MEDS: Apixaban 5 MG TABLET PO SCH ×2 (08:59→16:44)
[2019-01-17] MEDS: Atorvastatin Calcium 10 MG TAB PO SCH (08:59)
--- NOTE | 2019-01-17 12:41 | Internal Medicine Prog Note ---
Internal Medicine Subjective - Subjective Patient seen and examined:: with staff, chart reviewed Patient is:: awake, verbal, interactive, in bed Per staff patient has:: no adverse event, no episodes of fall, poor appetite, tolerating meds Internal Medicine Objective - Physical Exam Vitals and I&O: Vital Signs Temp 97.9 F 01/17/19 06:22 Pulse 60 01/17/19 09:00 Resp 19 01/17/19 06:22 BP 145/57 01/17/19 09:00 Pulse Ox 97 01/17/19 06:22 Intake & Output 01/16/19 01/17/19 01/17/19 18:59 06:59 18:59 Intake Total 800 120 Balance 800 120 Intake: Oral 800 120 Other: # Voids 3 3 # Bowel Movements 0 0 Active Medications: Current Medications Acetaminophen (Tylenol) 650 mg PO Q6H PRN PRN Reason: Mild Pain / Temp above 100 Stop: 03/17/19 01:57 Acetaminophen/Hydrocodone Bitart ([place] 5mg/325mg) 1 tab PO Q6H PRN PRN Reason: Pain (Moderate) Stop: 03/17/19 02:17 Atorvastatin Calcium (Lipitor) 20 mg PO DAILY [facility]; Protocol Stop: 03/17/19 08:59 Last Admin: 01/17/19 08:59 Dose: 20 mg Bisacodyl (Dulcolax 10 Mg Supp) 10 mg RC DAILY PRN PRN Reason: Constipation Stop: 03/17/19 02:12 Cephalexin Monohydrate (Keflex) 250 mg PO QID [facility] Stop: 01/21/19 12:59 Last Admin: 01/17/19 08:59 Dose: 250 mg Docusate Sodium (Colace) 100 mg PO BID [facility] Stop: 03/17/19 08:59 Last Admin: 01/17/19 08:58 Dose: 100 mg Escitalopram Oxalate (Lexapro) 5 mg PO DAILY [facility]; Protocol Stop: 03/17/19 08:59 Last Admin: 01/17/19 08:58 Dose: 5 mg Lorazepam (Ativan) 0.5 mg PO Q4HR PRN; Protocol PRN Reason: Anxiety Stop: 02/15/19 01:52 Magnesium Hydroxide (Milk Of Magnesia) 30 ml PO HS PRN PRN Reason: Constipation Metoprolol Tartrate (Lopressor) 25 mg PO BID [facility] Stop: 03/17/19 08:59 Last Admin: 01/17/19 09:00 Dose: 25 mg Zolpidem Tartrate (Ambien) 5 mg PO HS PRN PRN Reason: Insomnia Stop: 03/17/19 01:52 General: weak, thin, appears older HEENT: NC/AT, PERRLA, EOMI Neck: Supple, No JVD Lungs: CTAB Cardiovascular: RRR, Normal S1, Normal S2, with murmur Abdomen: soft, thin, non-distended, positive bowel sound Extremities: excoriation, contracture Neurological: no change - Procedures Procedures: Procedures Procedure Code Date GROUP PSYCHOTHERAPY 53437 02/28/15 GROUP PSYCHOTHERAPY GZHZZZZ 02/28/15 Internal Medicine Assmt/Plan - Assessment Assessment: ASSESSMENT AND PLAN: Urinary tract infection, dysphagia, anemia, hypertension, history of stroke with left-sided weakness, CAD, status post pacemaker, hypercholesterolemia. - Plan Plan: PLAN: Continue the patient on p.o. antibiotic. Continue on low sodium diet. We will titrate the patient's antihypertensive medication. Continue statin medication. Continue with current care.
--- NOTE | 2019-01-18 00:54 | Progress Notes ---
DATE: 01/17/2019 HISTORY OF PRESENT ILLNESS: An 88-year-old female transferred from [facility] increased agitation, depression, hopelessness, despair. On [id number], the patient is confused, does not really know what is going on or why she is here. Per nursing staff, she is confused, quiet, withdrawn, preoccupied, does not want medications sometimes. ASSESSMENT: The patient remains symptomatic, ongoing depressive symptoms, withdrawn. Medications were noted. PLAN: We will continue to monitor closely. JOB# [id number]
[2019-01-18] MEDS: Apixaban 5 MG TABLET PO SCH ×2 (11:04→17:25)
[2019-01-18] MEDS: Escitalopram Oxalate 5 mg Tab PO SCH (11:04)
[2019-01-18] MEDS: Atorvastatin Calcium 10 MG TAB PO SCH (11:04)
--- NOTE | 2019-01-18 13:12 | Internal Medicine Prog Note ---
Internal Medicine Subjective - Subjective Patient seen and examined:: with staff, chart reviewed Patient is:: awake, verbal, interactive, in bed Per staff patient has:: no adverse event, no episodes of fall, poor appetite, tolerating meds Internal Medicine Objective - Physical Exam Vitals and I&O: Vital Signs Temp 97.8 F 01/18/19 06:29 Pulse 67 01/18/19 11:05 Resp 18 01/18/19 06:29 BP 122/65 01/18/19 11:05 Pulse Ox 99 01/18/19 06:29 Intake & Output 01/17/19 01/18/19 01/18/19 18:59 06:59 18:59 Intake Total 800 120 Balance 800 120 Intake: Oral 800 120 Other: # Voids 4 3 # Bowel Movements 1 Active Medications: Current Medications Acetaminophen (Tylenol) 650 mg PO Q6H PRN PRN Reason: Mild Pain / Temp above 100 Stop: 03/17/19 01:57 Acetaminophen/Hydrocodone Bitart ([place] 5mg/325mg) 1 tab PO Q6H PRN PRN Reason: Pain (Moderate) Stop: 03/17/19 02:17 Atorvastatin Calcium (Lipitor) 20 mg PO DAILY [facility]; Protocol Stop: 03/17/19 08:59 Last Admin: 01/18/19 11:04 Dose: 20 mg Bisacodyl (Dulcolax 10 Mg Supp) 10 mg RC DAILY PRN PRN Reason: Constipation Stop: 03/17/19 02:12 Cephalexin Monohydrate (Keflex) 250 mg PO QID [facility] Stop: 01/21/19 12:59 Last Admin: 01/18/19 12:54 Dose: Not Given Docusate Sodium (Colace) 100 mg PO BID [facility] Stop: 03/17/19 08:59 Last Admin: 01/18/19 11:04 Dose: 100 mg Escitalopram Oxalate (Lexapro) 5 mg PO DAILY [facility]; Protocol Stop: 03/17/19 08:59 Last Admin: 01/18/19 11:04 Dose: 5 mg Lorazepam (Ativan) 0.5 mg PO Q4HR PRN; Protocol PRN Reason: Anxiety Stop: 02/15/19 01:52 Magnesium Hydroxide (Milk Of Magnesia) 30 ml PO HS PRN PRN Reason: Constipation Metoprolol Tartrate (Lopressor) 25 mg PO BID [facility] Stop: 03/17/19 08:59 Last Admin: 01/18/19 11:05 Dose: 25 mg Zolpidem Tartrate (Ambien) 5 mg PO HS PRN PRN Reason: Insomnia Stop: 03/17/19 01:52 General: weak, thin, appears older HEENT: NC/AT, PERRLA, EOMI Neck: Supple, No JVD Lungs: CTAB Cardiovascular: RRR, Normal S1, Normal S2, with murmur Abdomen: soft, thin, non-distended, positive bowel sound Extremities: excoriation, contracture Neurological: no change - Procedures Procedures: Procedures Procedure Code Date GROUP PSYCHOTHERAPY 14803 02/28/15 GROUP PSYCHOTHERAPY GZHZZZZ 02/28/15 Internal Medicine Assmt/Plan - Assessment Assessment: ASSESSMENT AND PLAN: Urinary tract infection, dysphagia, anemia, hypertension, history of stroke with left-sided weakness, CAD, status post pacemaker, hypercholesterolemia. - Plan Plan: PLAN: Continue the patient on p.o. antibiotic. Continue on low sodium diet. We will titrate the patient's antihypertensive medication. Continue statin medication. Continue with current care.
--- NOTE | 2019-01-18 19:42 | Progress Notes ---
DATE: 01/18/2019 SUBJECTIVE: An 88-year-old female, transferred from [facility] with increased agitation. She is actually up and around, more alert today, playing bingo. She is very confused, disoriented. No behavioral outburst, was really confused. She has no idea why she is in the hospital. She knows her name. She knows she is in the hospital, able to follow simple directions, commands, concerns about poor impulse control, concerns that she may act out upon her impulses. The patient is coming from intermediate. Fair sleep, fair appetite. Medications were noted. We will continue to monitor, adjust and titrate medications. JOB# [id number]
[2019-01-19] MEDS: Atorvastatin Calcium 10 MG TAB PO SCH (10:06)
[2019-01-19] MEDS: Escitalopram Oxalate 5 mg Tab PO SCH (10:07)
[2019-01-19] MEDS: Apixaban 5 MG TABLET PO SCH ×2 (10:07→17:41)
--- NOTE | 2019-01-19 12:46 | Internal Medicine Prog Note ---
Internal Medicine Subjective - Subjective Patient seen and examined:: with staff, chart reviewed Patient is:: awake, verbal, interactive, in bed Per staff patient has:: no adverse event, no episodes of fall, poor appetite, tolerating meds Internal Medicine Objective - Physical Exam Vitals and I&O: Vital Signs Temp 97.4 F 01/19/19 06:29 Pulse 60 01/19/19 10:07 Resp 18 01/19/19 06:29 BP 120/83 01/19/19 10:07 Pulse Ox 99 01/19/19 06:29 Intake & Output 01/18/19 01/19/19 01/19/19 18:59 06:59 18:59 Intake Total 800 120 Balance 800 120 Intake: Oral 800 120 Other: # Voids 2 3 # Bowel Movements 0 Stool Characteristics Soft Formed Active Medications: Current Medications Acetaminophen (Tylenol) 650 mg PO Q6H PRN PRN Reason: Mild Pain / Temp above 100 Stop: 03/17/19 01:57 Acetaminophen/Hydrocodone Bitart ([place] 5mg/325mg) 1 tab PO Q6H PRN PRN Reason: Pain (Moderate) Stop: 03/17/19 02:17 Atorvastatin Calcium (Lipitor) 20 mg PO DAILY [facility]; Protocol Stop: 03/17/19 08:59 Last Admin: 01/19/19 10:06 Dose: 20 mg Bisacodyl (Dulcolax 10 Mg Supp) 10 mg RC DAILY PRN PRN Reason: Constipation Stop: 03/17/19 02:12 Cephalexin Monohydrate (Keflex) 250 mg PO QID [facility] Stop: 01/21/19 12:59 Last Admin: 01/19/19 10:07 Dose: 250 mg Docusate Sodium (Colace) 100 mg PO BID [facility] Stop: 03/17/19 08:59 Last Admin: 01/19/19 10:07 Dose: 100 mg Escitalopram Oxalate (Lexapro) 5 mg PO DAILY [facility]; Protocol Stop: 03/17/19 08:59 Last Admin: 01/19/19 10:07 Dose: 5 mg Lorazepam (Ativan) 0.5 mg PO Q4HR PRN; Protocol PRN Reason: Anxiety Stop: 02/15/19 01:52 Magnesium Hydroxide (Milk Of Magnesia) 30 ml PO HS PRN PRN Reason: Constipation Metoprolol Tartrate (Lopressor) 25 mg PO BID [facility] Stop: 03/17/19 08:59 Last Admin: 01/19/19 10:07 Dose: Not Given Zolpidem Tartrate (Ambien) 5 mg PO HS PRN PRN Reason: Insomnia Stop: 03/17/19 01:52 General: weak, thin, appears older HEENT: NC/AT, PERRLA, EOMI Neck: Supple, No JVD Lungs: CTAB Cardiovascular: RRR, Normal S1, Normal S2, with murmur Abdomen: soft, thin, non-distended, positive bowel sound Extremities: excoriation, contracture Neurological: no change - Procedures Procedures: Procedures Procedure Code Date GROUP PSYCHOTHERAPY 19448 02/28/15 GROUP PSYCHOTHERAPY GZHZZZZ 02/28/15 Internal Medicine Assmt/Plan - Assessment Assessment: ASSESSMENT AND PLAN: Urinary tract infection, dysphagia, anemia, hypertension, history of stroke with left-sided weakness, CAD, status post pacemaker, hypercholesterolemia. - Plan Plan: PLAN: Continue the patient on p.o. antibiotic. Continue on low sodium diet. We will titrate the patient's antihypertensive medication. Continue statin medication. Continue with current care.
--- NOTE | 2019-01-19 17:51 | Progress Notes ---
DATE: 01/19/2019 SUBJECTIVE: The patient is resting comfortably in her bed. No agitation or current escalation of behaviors. No verbal outbursts, generally calmer, poor orientation, still forgetful, confused, following simple directions, needing some prompting. Ongoing concerns about her impulse control concerns that she may strike out at others, still requiring a higher level of prompting, redirection. Medications were noted. Vitals were reviewed. 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 JOB# [id number]
[2019-01-20] MEDS: Atorvastatin Calcium 10 MG TAB PO SCH (09:01)
[2019-01-20] MEDS: Apixaban 5 MG TABLET PO SCH ×2 (09:01→16:37)
[2019-01-20] MEDS: Escitalopram Oxalate 5 mg Tab PO SCH (09:02)
--- NOTE | 2019-01-20 12:49 | Internal Medicine Prog Note ---
Internal Medicine Subjective - Subjective Patient seen and examined:: with staff, chart reviewed Patient is:: awake, verbal, interactive, in bed Per staff patient has:: no adverse event, no episodes of fall, poor appetite, tolerating meds Internal Medicine Objective - Physical Exam Vitals and I&O: Vital Signs Temp 96.4 F 01/20/19 06:37 Pulse 61 01/20/19 06:37 Resp 18 01/20/19 06:37 BP 135/60 01/20/19 06:37 Pulse Ox 98 01/20/19 06:37 Intake & Output 01/19/19 01/20/19 01/20/19 18:59 06:59 18:59 Intake Total 1200 240 Balance 1200 240 Intake: Oral 1200 240 Other: # Voids 3 2 # Bowel Movements 0 Stool Characteristics Soft Formed Active Medications: Current Medications Acetaminophen (Tylenol) 650 mg PO Q6H PRN PRN Reason: Mild Pain / Temp above 100 Stop: 03/17/19 01:57 Acetaminophen/Hydrocodone Bitart ([place] 5mg/325mg) 1 tab PO Q6H PRN PRN Reason: Pain (Moderate) Stop: 03/17/19 02:17 Atorvastatin Calcium (Lipitor) 20 mg PO DAILY [facility]; Protocol Stop: 03/17/19 08:59 Last Admin: 01/20/19 09:01 Dose: Not Given Bisacodyl (Dulcolax 10 Mg Supp) 10 mg RC DAILY PRN PRN Reason: Constipation Stop: 03/17/19 02:12 Cephalexin Monohydrate (Keflex) 250 mg PO QID [facility] Stop: 01/21/19 12:59 Last Admin: 01/20/19 09:02 Dose: 250 mg Docusate Sodium (Colace) 100 mg PO BID [facility] Stop: 03/17/19 08:59 Last Admin: 01/20/19 09:02 Dose: Not Given Escitalopram Oxalate (Lexapro) 5 mg PO DAILY [facility]; Protocol Stop: 03/17/19 08:59 Last Admin: 01/20/19 09:02 Dose: Not Given Lorazepam (Ativan) 0.5 mg PO Q4HR PRN; Protocol PRN Reason: Anxiety Stop: 02/15/19 01:52 Last Admin: 01/20/19 11:14 Dose: 0.5 mg Magnesium Hydroxide (Milk Of Magnesia) 30 ml PO HS PRN PRN Reason: Constipation Metoprolol Tartrate (Lopressor) 25 mg PO BID [facility] Stop: 03/17/19 08:59 Last Admin: 01/20/19 09:02 Dose: Not Given Zolpidem Tartrate (Ambien) 5 mg PO HS PRN PRN Reason: Insomnia Stop: 03/17/19 01:52 General: weak, thin, appears older HEENT: NC/AT, PERRLA, EOMI Neck: Supple, No JVD Lungs: CTAB Cardiovascular: RRR, Normal S1, Normal S2, with murmur Abdomen: soft, thin, non-distended, positive bowel sound Extremities: excoriation, contracture Neurological: no change - Procedures Procedures: Procedures Procedure Code Date GROUP PSYCHOTHERAPY 41945 02/28/15 GROUP PSYCHOTHERAPY GZHZZZZ 02/28/15 Internal Medicine Assmt/Plan - Assessment Assessment: ASSESSMENT AND PLAN: Urinary tract infection, dysphagia, anemia, hypertension, history of stroke with left-sided weakness, CAD, status post pacemaker, hypercholesterolemia. - Plan Plan: PLAN: Continue the patient on p.o. antibiotic. Continue on low sodium diet. We will titrate the patient's antihypertensive medication. Continue statin medication. Continue with current care.
--- NOTE | 2019-01-21 06:03 | Progress Notes ---
DATE: 01/20/[address] Borjas. IDENTIFYING DATA: An 88-year-old female brought in here for increased agitation, increased depressive symptoms, diagnosed with depressive mood disorder. Today on utin-ud-yiic evaluation, the patient reports she is sad. She misses home. She wants to go. She does not know why she is here. She is forgetful. MENTAL STATUS EXAMINATION: Following simple directions, still confused, although generally calmer, some prompting needing. ASSESSMENT AND PLAN: History of ____ disorder, neurocognitive disorder. Limited poor historian overall. We will continue with the current medications, Lexapro 5 mg a day, metoprolol, Ambien as needed, as medication continue to reach steady state. Continue with primary psychiatrist's treatment plan and goals. JOB# [id number]
[2019-01-21] MEDS: Apixaban 5 MG TABLET PO SCH ×2 (09:17→18:13)
[2019-01-21] MEDS: Atorvastatin Calcium 10 MG TAB PO SCH (09:18)
[2019-01-21] MEDS: Escitalopram Oxalate 5 mg Tab PO SCH (09:18)
--- NOTE | 2019-01-21 12:26 | Internal Medicine Prog Note ---
Internal Medicine Subjective - Subjective Patient seen and examined:: with staff, chart reviewed Patient is:: awake, verbal, interactive, in bed Per staff patient has:: no adverse event, no episodes of fall, poor appetite, tolerating meds Internal Medicine Objective - Physical Exam Vitals and I&O: Vital Signs Temp 98.4 F 01/21/19 05:53 Pulse 60 01/21/19 09:18 Resp 18 01/21/19 05:53 BP 143/69 01/21/19 09:18 Pulse Ox 94 01/21/19 05:53 Intake & Output 01/20/19 01/21/19 01/21/19 18:59 06:59 18:59 Intake Total 1200 480 Output Total 1 Balance 1200 479 Intake: Oral 1200 480 Output: Urine/Stool Mix 1 Other: # Voids 1 # Bowel Movements 1 2 Active Medications: Current Medications Acetaminophen (Tylenol) 650 mg PO Q6H PRN PRN Reason: Mild Pain / Temp above 100 Stop: 03/17/19 01:57 Acetaminophen/Hydrocodone Bitart ([place] 5mg/325mg) 1 tab PO Q6H PRN PRN Reason: Pain (Moderate) Stop: 03/17/19 02:17 Atorvastatin Calcium (Lipitor) 20 mg PO DAILY [facility]; Protocol Stop: 03/17/19 08:59 Last Admin: 01/21/19 09:18 Dose: 20 mg Bisacodyl (Dulcolax 10 Mg Supp) 10 mg RC DAILY PRN PRN Reason: Constipation Stop: 03/17/19 02:12 Cephalexin Monohydrate (Keflex) 250 mg PO QID [facility] Stop: 01/21/19 12:59 Last Admin: 01/21/19 09:18 Dose: 250 mg Docusate Sodium (Colace) 100 mg PO BID [facility] Stop: 03/17/19 08:59 Last Admin: 01/21/19 09:18 Dose: 100 mg Escitalopram Oxalate (Lexapro) 5 mg PO DAILY [facility]; Protocol Stop: 03/17/19 08:59 Last Admin: 01/21/19 09:18 Dose: 5 mg Lorazepam (Ativan) 0.5 mg PO Q4HR PRN; Protocol PRN Reason: Anxiety Stop: 02/15/19 01:52 Last Admin: 01/20/19 11:14 Dose: 0.5 mg Magnesium Hydroxide (Milk Of Magnesia) 30 ml PO HS PRN PRN Reason: Constipation Metoprolol Tartrate (Lopressor) 25 mg PO BID [facility] Stop: 03/17/19 08:59 Last Admin: 01/21/19 09:18 Dose: 25 mg Zolpidem Tartrate (Ambien) 5 mg PO HS PRN PRN Reason: Insomnia Stop: 03/17/19 01:52 General: weak, thin, appears older HEENT: NC/AT, PERRLA, EOMI Neck: Supple, No JVD Lungs: CTAB Cardiovascular: RRR, Normal S1, Normal S2, with murmur Abdomen: soft, thin, non-distended, positive bowel sound Extremities: excoriation, contracture Neurological: no change - Procedures Procedures: Procedures Procedure Code Date GROUP PSYCHOTHERAPY 53120 02/28/15 GROUP PSYCHOTHERAPY GZHZZZZ 02/28/15 Internal Medicine Assmt/Plan - Assessment Assessment: ASSESSMENT AND PLAN: Urinary tract infection, dysphagia, anemia, hypertension, history of stroke with left-sided weakness, CAD, status post pacemaker, hypercholesterolemia. - Plan Plan: PLAN: Continue the patient on p.o. antibiotic. Continue on low sodium diet. We will titrate the patient's antihypertensive medication. Continue statin medication. Continue with current care.
--- NOTE | 2019-01-21 18:28 | Progress Notes ---
DATE: 01/21/2019 SUBJECTIVE: The patient was seen and evaluated. The patient's chart reviewed. Dr. Otero is covering for Dr. Borjas. Overnight, no acute events. Today on piix-cr-zcox evaluation, the patient denies any side effects to medications. She is forgetful, but does not know why she is here, need a lot of prompting. MENTAL STATUS EXAMINATION: Sad, blunted, disorganized, but calmer. ASSESSMENT AND PLAN: History of depression and neurocognitive impairment, tolerating the current medication regimen and stabilizing. We will continue monitoring and evaluating for potential disposition once medical billing specialist clarifies safe disposition. JOB# [id number]
[2019-01-22] MEDS: Atorvastatin Calcium 10 MG TAB PO SCH (08:43)
[2019-01-22] MEDS: Escitalopram Oxalate 5 mg Tab PO SCH (08:43)
[2019-01-22] MEDS: Apixaban 5 MG TABLET PO SCH ×2 (08:44→17:02)
--- NOTE | 2019-01-22 12:34 | Internal Medicine Prog Note ---
Internal Medicine Subjective - Subjective Patient seen and examined:: with staff, chart reviewed Patient is:: awake, verbal, interactive, in bed Per staff patient has:: no adverse event, no episodes of fall, poor appetite, tolerating meds Internal Medicine Objective - Physical Exam Vitals and I&O: Vital Signs Temp 99.0 F 01/22/19 05:51 Pulse 60 01/22/19 05:51 Resp 18 01/22/19 08:00 BP 128/58 01/22/19 05:51 Pulse Ox 97 01/22/19 05:51 Intake & Output 01/21/19 01/22/19 01/22/19 18:59 06:59 18:59 Intake Total 1150 360 Output Total 1 Balance 1150 359 Intake: Oral 1150 360 Output: Urine/Stool Mix 1 Other: # Voids 1 # Bowel Movements 1 0 Stool Characteristics Soft Soft Soft Formed Formed Formed Active Medications: Current Medications Acetaminophen (Tylenol) 650 mg PO Q6H PRN PRN Reason: Mild Pain / Temp above 100 Stop: 03/17/19 01:57 Acetaminophen/Hydrocodone Bitart ([place] 5mg/325mg) 1 tab PO Q6H PRN PRN Reason: Pain (Moderate) Stop: 03/17/19 02:17 Atorvastatin Calcium (Lipitor) 20 mg PO DAILY [facility]; Protocol Stop: 03/17/19 08:59 Last Admin: 01/22/19 08:43 Dose: 20 mg Bisacodyl (Dulcolax 10 Mg Supp) 10 mg RC DAILY PRN PRN Reason: Constipation Stop: 03/17/19 02:12 Cephalexin Monohydrate (Keflex) 250 mg PO QID [facility] Stop: 01/23/19 21:01 Last Admin: 01/22/19 08:43 Dose: 250 mg Docusate Sodium (Colace) 100 mg PO BID [facility] Stop: 03/17/19 08:59 Last Admin: 01/22/19 08:43 Dose: 100 mg Escitalopram Oxalate (Lexapro) 5 mg PO DAILY [facility]; Protocol Stop: 03/17/19 08:59 Last Admin: 01/22/19 08:43 Dose: 5 mg Lorazepam (Ativan) 0.5 mg PO Q4HR PRN; Protocol PRN Reason: Anxiety Stop: 02/15/19 01:52 Last Admin: 01/20/19 11:14 Dose: 0.5 mg Magnesium Hydroxide (Milk Of Magnesia) 30 ml PO HS PRN PRN Reason: Constipation Metoprolol Tartrate (Lopressor) 25 mg PO BID [facility] Stop: 03/17/19 08:59 Last Admin: 01/21/19 18:00 Dose: 25 mg Zolpidem Tartrate (Ambien) 5 mg PO HS PRN PRN Reason: Insomnia Stop: 03/17/19 01:52 Last Admin: 01/21/19 20:47 Dose: 5 mg General: weak, thin, appears older HEENT: NC/AT, PERRLA, EOMI Neck: Supple, No JVD Lungs: CTAB Cardiovascular: RRR, Normal S1, Normal S2, with murmur Abdomen: soft, thin, non-distended, positive bowel sound Extremities: excoriation, contracture Neurological: no change - Procedures Procedures: Procedures Procedure Code Date GROUP PSYCHOTHERAPY 91646 02/28/15 GROUP PSYCHOTHERAPY GZHZZZZ 02/28/15 Internal Medicine Assmt/Plan - Assessment Assessment: ASSESSMENT AND PLAN: Urinary tract infection, dysphagia, anemia, hypertension, history of stroke with left-sided weakness, CAD, status post pacemaker, hypercholesterolemia. - Plan Plan: PLAN: Continue the patient on p.o. antibiotic. Continue on low sodium diet. We will titrate the patient's antihypertensive medication. Continue statin medication. Continue with current care.
--- NOTE | 2019-01-23 00:01 | Progress Notes ---
DATE: 01/22/2019 SUBJECTIVE: The patient in the hospital 88-year-old female transferred from [place] post-acute increased agitation, severe depression, hopelessness, helplessness, despair. The patient noted to be mostly bedbound, keeping to self, not answering to my questions, very confused, not eating too much, appearing depressed, stating she is "okay," but appearing down, withdrawn, currently on dosing of Lexapro. Staff concerned about her needing prompting forgetfulness. She is very withdrawn, sometimes easily agitated and irritable. Medications were noted. PLAN: We will continue to monitor ongoing and severe mood symptoms. JOB# [id number]
[2019-01-23] MEDS: Apixaban 5 MG TABLET PO SCH ×2 (08:54→16:35)
[2019-01-23] MEDS: Atorvastatin Calcium 10 MG TAB PO SCH (08:57)
[2019-01-23] MEDS: Escitalopram Oxalate 5 mg Tab PO SCH (08:59)
--- NOTE | 2019-01-23 12:24 | Internal Medicine Prog Note ---
Internal Medicine Subjective - Subjective Patient seen and examined:: with staff, chart reviewed Patient is:: awake, verbal, interactive, in bed Per staff patient has:: no adverse event, no episodes of fall, poor appetite, tolerating meds Internal Medicine Objective - Physical Exam Vitals and I&O: Vital Signs Temp 97.6 F 01/23/19 05:17 Pulse 61 01/23/19 08:59 Resp 20 01/23/19 08:00 BP 146/57 01/23/19 08:59 Pulse Ox 99 01/23/19 05:17 Intake & Output 01/22/19 01/23/19 01/23/19 18:59 06:59 18:59 Intake Total 700 300 Output Total 1 Balance 700 299 Intake: Oral 700 300 Output: Urine/Stool Mix 1 Other: # Voids 3 1 # Bowel Movements 1 1 Stool Characteristics Soft Formed Active Medications: Current Medications Acetaminophen (Tylenol) 650 mg PO Q6H PRN PRN Reason: Mild Pain / Temp above 100 Stop: 03/17/19 01:57 Acetaminophen/Hydrocodone Bitart ([place] 5mg/325mg) 1 tab PO Q6H PRN PRN Reason: Pain (Moderate) Stop: 03/17/19 02:17 Atorvastatin Calcium (Lipitor) 20 mg PO DAILY [facility]; Protocol Stop: 03/17/19 08:59 Last Admin: 01/23/19 08:57 Dose: 20 mg Bisacodyl (Dulcolax 10 Mg Supp) 10 mg RC DAILY PRN PRN Reason: Constipation Stop: 03/17/19 02:12 Cephalexin Monohydrate (Keflex) 250 mg PO QID [facility] Stop: 01/23/19 21:01 Last Admin: 01/23/19 12:09 Dose: 250 mg Docusate Sodium (Colace) 100 mg PO BID [facility] Stop: 03/17/19 08:59 Last Admin: 01/23/19 08:58 Dose: 100 mg Escitalopram Oxalate (Lexapro) 5 mg PO DAILY [facility]; Protocol Stop: 03/17/19 08:59 Last Admin: 01/23/19 08:59 Dose: 5 mg Lorazepam (Ativan) 0.5 mg PO Q4HR PRN; Protocol PRN Reason: Anxiety Stop: 02/15/19 01:52 Last Admin: 01/20/19 11:14 Dose: 0.5 mg Magnesium Hydroxide (Milk Of Magnesia) 30 ml PO HS PRN PRN Reason: Constipation Metoprolol Tartrate (Lopressor) 25 mg PO BID [facility] Stop: 03/17/19 08:59 Last Admin: 01/23/19 08:59 Dose: 25 mg Zolpidem Tartrate (Ambien) 5 mg PO HS PRN PRN Reason: Insomnia Stop: 03/17/19 01:52 Last Admin: 01/22/19 20:57 Dose: 5 mg General: weak, thin, appears older HEENT: NC/AT, PERRLA, EOMI Neck: Supple, No JVD Lungs: CTAB Cardiovascular: RRR, Normal S1, Normal S2, with murmur Abdomen: soft, thin, non-distended, positive bowel sound Extremities: excoriation, contracture Neurological: no change - Procedures Procedures: Procedures Procedure Code Date GROUP PSYCHOTHERAPY 24435 02/28/15 GROUP PSYCHOTHERAPY GZHZZZZ 02/28/15 Internal Medicine Assmt/Plan - Assessment Assessment: ASSESSMENT AND PLAN: Urinary tract infection, dysphagia, anemia, hypertension, history of stroke with left-sided weakness, CAD, status post pacemaker, hypercholesterolemia. - Plan Plan: PLAN: Continue the patient on p.o. antibiotic. Continue on low sodium diet. We will titrate the patient's antihypertensive medication. Continue statin medication. Continue with current care. Nutritional Asmnt/Malnutr-PDOC - Dietary Evaluation Malnutrition Findings (Please click <Entered> for more info): Nutritional Asmnt/Malnutrition Start: 01/22/19 14: 58 Text: Status: Complete Freq: Protocol: Document 01/22/19 14:58 MARIFER (Rec: 01/22/19 15:01 MARIFER [id number]) Nutritional Asmnt/Malnutrition Patient General Information Nutritional Screening Low Risk Diagnosis Depression Pertinent Medical Hx/Surgical Hx HTN, stroke with Lt sided weakness, CAD, status post pacemaker, dysphagia, hypercholesterolemia Subjective Information Pt is a 57-year-old female admitted on 01/16 from group home. Pt is eating an estimated 75% of meals x3 days (average) Per Meal/Nutrition Activity Record- adequate to meet estimated nutritional needs. Visited pt today at end of lunch. Pt was smiling when I walked in, she said hi. Pt had not eaten much lunch, I asked if lunch was OK, she said something incomprehensible. I continued to ask if she wanted something else, she stated the food was great. I let her know she can ask the nurse for anything else she may like. HT: 52 WT: 106 LB (48.18 kg) BMI: 19.39 (Normal) GI: Flat, Soft, Non-tender BM: 01/21 x2 I/O: 1510/1 (+1509) Skin: WNL, Intact Rolf: 15 Diet Order: Pureed, MOLLY Estimated Energy Needs: ( Geriatric, CBW) 2212-2634 kcals (25-30 kcals/ kg) 48-58g Pro (1.0-1.2 g/kg) 8667-7934 ml (25-30 ml/kg) Pt is eating 75% of meals Per Meal/Nutrition Activity Record . Dietary is currently providing an estimated 2470 kcals and 102 gm Pro, per Pt PO intake this is providing an estimated 1850 kcals and 77gm Pro to meet 100+% kcal and 100+% Pro needs. Current Diet Order/ Nutrition Support Shahzad, MOLLY Pertinent Medications Lipitor, Dulcolax (PRN), Colace, MOM (PRN) Pertinent Labs 01/15: Hgb/Hct 11.1/33.5 Nutritional Hx/Data Height 1.57 m Height (Calculated Centimeters) 157.5 Current Weight (lbs) 48.081 kg Weight (Calculated Kilograms) 48.1 Weight (Calculated Grams) 51978.8 [place] Body Weight 110 LB (50kg) % [place] Body Weight 96 Body Mass Index (BMI) 19.3 Weight Status Approriate GI Symptoms GI Symptoms None Last BM 01/21 x2 Skin Integrity/Comment: Skin: WNL, Intact Rolf: 15 Current %PO Good (75-100%) Estimated Nutritional Goals BEE in Kcals: Using Current wt Calories/Kcals/Kg 25-30 Kcals Calculated 6865-9328 Protein: Using Current wt Protein g/k.0-1.2 Protein Calculated 48-58 Fluid: ml 2872-3386 ml (25-30 ml/kg) Nutritional Problem No current Nutrition Prob Problem No nutrition diagnosis at this time. Etiology N/A Signs/Symptoms: N/A Malnutrition Related to Morbid Obesity Malnutrition related to morbid obesity No Intervention/Recommendation Comments Continue with Shahzad MOLLY diet as ordered. Expected Outcomes/Goals Expected Outcomes/Goals 1. PO intake to continue to meet >75% of nutritional needs . 2. Monitor PO intake, wt, nutrition related labs, and skin integrity. 3. F/U as low risk in 7-10 days, 01/29-02/01
[2019-01-24] MEDS: Escitalopram Oxalate 5 mg Tab PO SCH (09:02)
[2019-01-24] MEDS: Atorvastatin Calcium 10 MG TAB PO SCH (09:02)
[2019-01-24] MEDS: Apixaban 5 MG TABLET PO SCH ×2 (09:02→16:34)
--- NOTE | 2019-01-24 12:49 | Internal Medicine Prog Note ---
Internal Medicine Subjective - Subjective Patient seen and examined:: with staff, chart reviewed Patient is:: awake, verbal, interactive, in bed Per staff patient has:: no adverse event, no episodes of fall, poor appetite, tolerating meds Internal Medicine Objective - Physical Exam Vitals and I&O: Vital Signs Temp 97.4 F 01/24/19 05:11 Pulse 61 01/24/19 09:05 Resp 19 01/24/19 05:11 BP 146/62 01/24/19 09:05 Pulse Ox 97 01/24/19 05:11 Intake & Output 01/23/19 01/24/19 01/24/19 18:59 06:59 18:59 Intake Total 800 220 Balance 800 220 Intake: Oral 800 220 Other: # Voids 3 1 # Bowel Movements 1 1 Active Medications: Current Medications Acetaminophen (Tylenol) 650 mg PO Q6H PRN PRN Reason: Mild Pain / Temp above 100 Stop: 03/17/19 01:57 Acetaminophen/Hydrocodone Bitart ([place] 5mg/325mg) 1 tab PO Q6H PRN PRN Reason: Pain (Moderate) Stop: 03/17/19 02:17 Atorvastatin Calcium (Lipitor) 20 mg PO DAILY [facility]; Protocol Stop: 03/17/19 08:59 Last Admin: 01/24/19 09:02 Dose: 20 mg Bisacodyl (Dulcolax 10 Mg Supp) 10 mg RC DAILY PRN PRN Reason: Constipation Stop: 03/17/19 02:12 Cephalexin Monohydrate (Keflex) 250 mg PO QID [facility] Stop: 01/26/19 16:59 Last Admin: 01/24/19 09:02 Dose: 250 mg Docusate Sodium (Colace) 100 mg PO BID [facility] Stop: 03/17/19 08:59 Last Admin: 01/24/19 09:02 Dose: 100 mg Donepezil HCl (Aricept) 5 mg PO HS [facility] Stop: 03/25/19 20:59 Escitalopram Oxalate (Lexapro) 5 mg PO DAILY [facility]; Protocol Stop: 03/17/19 08:59 Last Admin: 01/24/19 09:02 Dose: 5 mg Lorazepam (Ativan) 0.5 mg PO Q4HR PRN; Protocol PRN Reason: Anxiety Stop: 02/15/19 01:52 Last Admin: 01/20/19 11:14 Dose: 0.5 mg Magnesium Hydroxide (Milk Of Magnesia) 30 ml PO HS PRN PRN Reason: Constipation Metoprolol Tartrate (Lopressor) 25 mg PO BID RAHE[facility] Stop: 03/17/19 08:59 Last Admin: 01/24/19 09:05 Dose: 25 mg Zolpidem Tartrate (Ambien) 5 mg PO HS PRN PRN Reason: Insomnia Stop: 03/17/19 01:52 Last Admin: 01/23/19 20:30 Dose: 5 mg General: weak, thin, appears older HEENT: NC/AT, PERRLA, EOMI Neck: Supple, No JVD Lungs: CTAB Cardiovascular: RRR, Normal S1, Normal S2, with murmur Abdomen: soft, thin, non-distended, positive bowel sound Extremities: excoriation, contracture Neurological: no change - Procedures Procedures: Procedures Procedure Code Date GROUP PSYCHOTHERAPY 22055 02/28/15 GROUP PSYCHOTHERAPY GZHZZZZ 02/28/15 Internal Medicine Assmt/Plan - Assessment Assessment: ASSESSMENT AND PLAN: Urinary tract infection, dysphagia, anemia, hypertension, history of stroke with left-sided weakness, CAD, status post pacemaker, hypercholesterolemia. - Plan Plan: PLAN: Continue the patient on p.o. antibiotic. Continue on low sodium diet. We will titrate the patient's antihypertensive medication. Continue statin medication. Continue with current care. Nutritional Asmnt/Malnutr-PDOC - Dietary Evaluation Malnutrition Findings (Please click <Entered> for more info): Nutritional Asmnt/Malnutrition Start: 01/22/19 14: 58 Text: Status: Complete Freq: Protocol: Document 01/22/19 14:58 MARIFER (Rec: 01/22/19 15:01 MARIFER [id number]) Nutritional Asmnt/Malnutrition Patient General Information Nutritional Screening Low Risk Diagnosis Depression Pertinent Medical Hx/Surgical Hx HTN, stroke with Lt sided weakness, CAD, status post pacemaker, dysphagia, hypercholesterolemia Subjective Information Pt is a 57-year-old female [facility]. Pt is eating an estimated 75% of meals x3 days (average) Per Meal/Nutrition Activity Record- adequate to meet estimated nutritional needs. Visited pt today at end of lunch. Pt was smiling when I walked in, she said hi. Pt had not eaten much lunch, I asked if lunch was OK, she said something incomprehensible. I continued to ask if she wanted something else, she stated the food was great. I let her know she can ask the nurse for anything else she may like. HT: 52 WT: 106 LB (48.18 kg) BMI: 19.39 (Normal) GI: Flat, Soft, Non-tender BM: 01/21 x2 I/O: 1510/1 (+1509) Skin: WNL, Intact Rolf: 15 Diet Order: Shahzad MOLLY Estimated Energy Needs: ( Geriatric, CBW) 4102-6377 kcals (25-30 kcals/ kg) 48-58g Pro (1.0-1.2 g/kg) 8725-5476 ml (25-30 ml/kg) Pt is eating 75% of meals Per Meal/Nutrition Activity Record . Dietary is currently providing an estimated 2470 kcals and 102 gm Pro, per Pt PO intake this is providing an estimated 1850 kcals and 77gm Pro to meet 100+% kcal and 100+% Pro needs. Current Diet Order/ Nutrition Support Shahzad MOLLY Pertinent Medications Lipitor, Dulcolax (PRN), Colace, MOM (PRN) Pertinent Labs 01/15: Hgb/Hct 11.1/33.5 Nutritional Hx/Data Height 1.57 m Height (Calculated Centimeters) 157.5 Current Weight (lbs) 48.081 kg Weight (Calculated Kilograms) 48.1 Weight (Calculated Grams) 54674.8 [place] Body Weight 110 LB (50kg) % [place] Body Weight 96 Body Mass Index (BMI) 19.3 Weight Status Approriate GI Symptoms GI Symptoms None Last BM 01/21 x2 Skin Integrity/Comment: Skin: WNL, Intact Rolf: 15 Current %PO Good (75-100%) Estimated Nutritional Goals BEE in Kcals: Using Current wt Calories/Kcals/Kg 25-30 Kcals Calculated 8465-5198 Protein: Using Current wt Protein g/k.0-1.2 Protein Calculated 48-58 Fluid: ml 7646-0085 ml (25-30 ml/kg) Nutritional Problem No current Nutrition Prob Problem No nutrition diagnosis at this time. Etiology N/A Signs/Symptoms: N/A Malnutrition Related to Morbid Obesity Malnutrition related to morbid obesity No Intervention/Recommendation Comments Continue with Pureed, MOLLY diet as ordered. Expected Outcomes/Goals Expected Outcomes/Goals 1. PO intake to continue to meet >75% of nutritional needs . 2. Monitor PO intake, wt, nutrition related labs, and skin integrity. 3. F/U as low risk in 7-10 days, 01/29-02/01
--- NOTE | 2019-01-24 16:25 | Progress Notes ---
DATE: 01/23/2019 SUBJECTIVE: Chart reviewed and the patient interviewed. Also discussed the patient's condition with the staff and reviewed records and labs. The patient is still in a depressed mood and she is still guarded and withdrawn. She is interacting minimally with others. The patient also still has episodes of agitation and irritability. She also still needs close monitoring. Otherwise, the patient is compliant with taking medications with no side effects. Otherwise, the patient needs close monitoring. ASSESSMENT: The patient is still agitated and confused. TREATMENT PLAN: Continue monitoring behavior and continue adjusting psychotropic medications and follow up closely. [facility]# [id number]
--- NOTE | 2019-01-25 00:36 | Progress Notes ---
DATE: 01/24/2019 SUBJECTIVE: Chart reviewed and the patient interviewed. Also discussed the patient's condition with the staff and reviewed records and labs. The patient continued to be preoccupied and she is still selectively mute. The patient also is interacting minimally with others and she is withdrawn and stays by herself in her room most of the time. The patient also is still feeling that she wants to be left alone and nobody to bother her. At the same time, the patient is compliant with taking Aricept and Lexapro with no major problems. ASSESSMENT: The patient is still severely depressed. TREATMENT PLAN: Continue to monitor the patient's behavior and her condition closely. Also, we will continue Lexapro same dose, but might adjust the dose if she continued to be depressed. Working on her ineffective coping and followup. JOB# [id number]
[2019-01-25] MEDS: Apixaban 5 MG TABLET PO SCH ×2 (08:49→17:05)
[2019-01-25] MEDS: Atorvastatin Calcium 10 MG TAB PO SCH (08:51)
[2019-01-25] MEDS: Escitalopram Oxalate 5 mg Tab PO SCH (08:52)
--- NOTE | 2019-01-25 15:36 | Internal Medicine Prog Note ---
Internal Medicine Subjective - Subjective Patient seen and examined:: with staff, chart reviewed Patient is:: awake, verbal, interactive, in bed Per staff patient has:: no adverse event, no episodes of fall, poor appetite, tolerating meds Internal Medicine Objective - Physical Exam Vitals and I&O: Vital Signs Temp 97.7 F 01/25/19 14:00 Pulse 60 01/25/19 14:00 Resp 19 01/25/19 14:00 BP 116/51 01/25/19 14:00 Pulse Ox 100 01/25/19 14:00 Intake & Output 01/24/19 01/25/19 01/25/19 18:59 06:59 18:59 Intake Total 800 120 Balance 800 120 Intake: Oral 800 120 Other: # Voids 3 3 # Bowel Movements 0 Active Medications: Current Medications Acetaminophen (Tylenol) 650 mg PO Q6H PRN PRN Reason: Mild Pain / Temp above 100 Stop: 03/17/19 01:57 Acetaminophen/Hydrocodone Bitart ([place] 5mg/325mg) 1 tab PO Q6H PRN PRN Reason: Pain (Moderate) Stop: 03/17/19 02:17 Atorvastatin Calcium (Lipitor) 20 mg PO DAILY [facility]; Protocol Stop: 03/17/19 08:59 Last Admin: 01/25/19 08:51 Dose: Not Given Bisacodyl (Dulcolax 10 Mg Supp) 10 mg RC DAILY PRN PRN Reason: Constipation Stop: 03/17/19 02:12 Cephalexin Monohydrate (Keflex) 250 mg PO QID [facility] Stop: 01/26/19 16:59 Last Admin: 01/25/19 13:45 Dose: 250 mg Docusate Sodium (Colace) 100 mg PO BID [facility] Stop: 03/17/19 08:59 Last Admin: 01/25/19 08:52 Dose: Not Given Donepezil HCl (Aricept) 5 mg PO HS [facility] Stop: 03/25/19 20:59 Last Admin: 01/24/19 20:54 Dose: 5 mg Escitalopram Oxalate (Lexapro) 5 mg PO DAILY [facility]; Protocol Stop: 03/17/19 08:59 Last Admin: 01/25/19 08:52 Dose: Not Given Lorazepam (Ativan) 0.5 mg PO Q4HR PRN; Protocol PRN Reason: Anxiety Stop: 02/15/19 01:52 Last Admin: 01/20/19 11:14 Dose: 0.5 mg Magnesium Hydroxide (Milk Of Magnesia) 30 ml PO HS PRN PRN Reason: Constipation Metoprolol Tartrate (Lopressor) 25 mg PO BID [facility] Stop: 03/17/19 08:59 Last Admin: 01/25/19 08:52 Dose: Not Given Zolpidem Tartrate (Ambien) 5 mg PO HS PRN PRN Reason: Insomnia Stop: 03/17/19 01:52 Last Admin: 01/23/19 20:30 Dose: 5 mg General: weak, thin, appears older HEENT: NC/AT, PERRLA, EOMI Neck: Supple, No JVD Lungs: CTAB Cardiovascular: RRR, Normal S1, Normal S2, with murmur Abdomen: soft, thin, non-distended, positive bowel sound Extremities: excoriation, contracture Neurological: no change - Procedures Procedures: Procedures Procedure Code Date GROUP PSYCHOTHERAPY 93669 02/28/15 GROUP PSYCHOTHERAPY GZHZZZZ 02/28/15 Internal Medicine Assmt/Plan - Assessment Assessment: ASSESSMENT AND PLAN: Urinary tract infection, dysphagia, anemia, hypertension, history of stroke with left-sided weakness, CAD, status post pacemaker, hypercholesterolemia. - Plan Plan: PLAN: Continue the patient on p.o. antibiotic. Continue on low sodium diet. We will titrate the patient's antihypertensive medication. Continue statin medication. Continue with current care. Nutritional Asmnt/Malnutr-PDOC - Dietary Evaluation Malnutrition Findings (Please click <Entered> for more info): Nutritional Asmnt/Malnutrition Start: 01/22/19 14: 58 Text: Status: Complete Freq: Protocol: Document 01/22/19 14:58 MARIFER (Rec: 01/22/19 15:01 MARIFER [id number]) Nutritional Asmnt/Malnutrition Patient General Information Nutritional Screening Low Risk Diagnosis Depression Pertinent Medical Hx/Surgical Hx HTN, stroke with Lt sided weakness, CAD, status post pacemaker, dysphagia, hypercholesterolemia Subjective Information Pt is a 57-year-old female admitted on 01/16 from [facility]. Pt is eating an estimated 75% of meals x3 days (average) Per Meal/Nutrition Activity Record- adequate to meet estimated nutritional needs. Visited pt today at end of lunch. Pt was smiling when I walked in, she said hi. Pt had not eaten much lunch, I asked if lunch was OK, she said something incomprehensible. I continued to ask if she wanted something else, she stated the food was great. I let her know she can ask the nurse for anything else she may like. HT: 52 WT: 106 LB (48.18 kg) BMI: 19.39 (Normal) GI: Flat, Soft, Non-tender BM: 01/21 x2 I/O: 1510/1 (+1509) Skin: WNL, Intact Rolf: 15 Diet Order: Pureed, MOLLY Estimated Energy Needs: ( Geriatric, CBW) 5548-9574 kcals (25-30 kcals/ kg) 48-58g Pro (1.0-1.2 g/kg) 2437-9283 ml (25-30 ml/kg) Pt is eating 75% of meals Per Meal/Nutrition Activity Record . Dietary is currently providing an estimated 2470 kcals and 102 gm Pro, per Pt PO intake this is providing an estimated 1850 kcals and 77gm Pro to meet 100+% kcal and 100+% Pro needs. Current Diet Order/ Nutrition Support Shahzad, MOLLY Pertinent Medications Lipitor, Dulcolax (PRN), Colace, MOM (PRN) Pertinent Labs 01/15: Hgb/Hct 11.1/33.5 Nutritional Hx/Data Height 1.57 m Height (Calculated Centimeters) 157.5 Current Weight (lbs) 48.081 kg Weight (Calculated Kilograms) 48.1 Weight (Calculated Grams) 21055.8 [place] Body Weight 110 LB (50kg) % [place] Body Weight 96 Body Mass Index (BMI) 19.3 Weight Status Approriate GI Symptoms GI Symptoms None Last BM 01/21 x2 Skin Integrity/Comment: Skin: WNL, Intact Rolf: 15 Current %PO Good (75-100%) Estimated Nutritional Goals BEE in Kcals: Using Current wt Calories/Kcals/Kg 25-30 Kcals Calculated 1053-3499 Protein: Using Current wt Protein g/k.0-1.2 Protein Calculated 48-58 Fluid: ml 0902-7691 ml (25-30 ml/kg) Nutritional Problem No current Nutrition Prob Problem No nutrition diagnosis at this time. Etiology N/A Signs/Symptoms: N/A Malnutrition Related to Morbid Obesity Malnutrition related to morbid obesity No Intervention/Recommendation Comments Continue with Pureed, MOLLY diet as ordered. Expected Outcomes/Goals Expected Outcomes/Goals 1. PO intake to continue to meet >75% of nutritional needs . 2. Monitor PO intake, wt, nutrition related labs, and skin integrity. 3. F/U as low risk in 7-10 days, 01/29-02/01
--- NOTE | 2019-01-25 21:06 | Progress Notes ---
DATE: 01/25/2019 SUBJECTIVE: Chart reviewed and the patient interviewed. Also, discussed the patient's condition with the staff and reviewed records and labs. The patient still seems to be preoccupied and still actively hallucinating. She also is confused and needs lots of redirections. The patient also is still depressed and withdrawn, and tends to stay by herself in her room most of the time. Minimum interaction. The patient denies any suicidal ideations, but she is still depressed, and wants to be left alone. ASSESSMENT: The patient is still depressed and is still slightly psychotic. TREATMENT PLAN: The patient is started on Lexapro 5 mg every day and added Aricept. We will continue same dose, and continue to monitor her behavior and her condition closely. JOB# [id number]
[2019-01-26] MEDS: Escitalopram Oxalate 5 mg Tab PO SCH (09:27)
[2019-01-26] MEDS: Apixaban 5 MG TABLET PO SCH ×2 (09:28→16:55)
[2019-01-26] MEDS: Atorvastatin Calcium 10 MG TAB PO SCH (09:29)
--- NOTE | 2019-01-26 12:53 | Internal Medicine Prog Note ---
Internal Medicine Subjective - Subjective Patient seen and examined:: with staff, chart reviewed Patient is:: awake, verbal, interactive, in bed Per staff patient has:: no adverse event, no episodes of fall, poor appetite, tolerating meds Internal Medicine Objective - Physical Exam Vitals and I&O: Vital Signs Temp 97 F 01/25/19 20:00 Pulse 60 01/25/19 20:00 Resp 18 01/25/19 20:00 BP 122/48 01/25/19 20:00 Pulse Ox 99 01/25/19 20:00 Intake & Output 01/25/19 01/26/19 01/26/19 18:59 06:59 18:59 Intake Total 900 Balance 900 Intake: Oral 900 Active Medications: Current Medications Acetaminophen (Tylenol) 650 mg PO Q6H PRN PRN Reason: Mild Pain / Temp above 100 Stop: 03/17/19 01:57 Acetaminophen/Hydrocodone Bitart ([place] 5mg/325mg) 1 tab PO Q6H PRN PRN Reason: Pain (Moderate) Stop: 03/17/19 02:17 Atorvastatin Calcium (Lipitor) 20 mg PO DAILY [facility]; Protocol Stop: 03/17/19 08:59 Last Admin: 01/26/19 09:29 Dose: 20 mg Bisacodyl (Dulcolax 10 Mg Supp) 10 mg RC DAILY PRN PRN Reason: Constipation Stop: 03/17/19 02:12 Cephalexin Monohydrate (Keflex) 250 mg PO QID [facility] Stop: 01/26/19 16:59 Last Admin: 01/26/19 09:29 Dose: 250 mg Docusate Sodium (Colace) 100 mg PO BID [facility] Stop: 03/17/19 08:59 Last Admin: 01/26/19 09:29 Dose: 100 mg Donepezil HCl (Aricept) 5 mg PO HS [facility] Stop: 03/25/19 20:59 Last Admin: 01/25/19 21:41 Dose: 5 mg Escitalopram Oxalate (Lexapro) 5 mg PO DAILY [facility]; Protocol Stop: 03/17/19 08:59 Last Admin: 01/26/19 09:27 Dose: 5 mg Lorazepam (Ativan) 0.5 mg PO Q4HR PRN; Protocol PRN Reason: Anxiety Stop: 02/15/19 01:52 Last Admin: 01/20/19 11:14 Dose: 0.5 mg Magnesium Hydroxide (Milk Of Magnesia) 30 ml PO HS PRN PRN Reason: Constipation Metoprolol Tartrate (Lopressor) 25 mg PO BID [facility] Stop: 03/17/19 08:59 Last Admin: 01/25/19 17:05 Dose: 25 mg Zolpidem Tartrate (Ambien) 5 mg PO HS PRN PRN Reason: Insomnia Stop: 03/17/19 01:52 Last Admin: 01/23/19 20:30 Dose: 5 mg General: weak, thin, appears older HEENT: NC/AT, PERRLA, EOMI Neck: Supple, No JVD Lungs: CTAB Cardiovascular: RRR, Normal S1, Normal S2, with murmur Abdomen: soft, thin, non-distended, positive bowel sound Extremities: excoriation, contracture Neurological: no change - Procedures Procedures: Procedures Procedure Code Date GROUP PSYCHOTHERAPY 94884 02/28/15 GROUP PSYCHOTHERAPY GZHZZZZ 02/28/15 Internal Medicine Assmt/Plan - Assessment Assessment: ASSESSMENT AND PLAN: Urinary tract infection, dysphagia, anemia, hypertension, history of stroke with left-sided weakness, CAD, status post pacemaker, hypercholesterolemia. - Plan Plan: PLAN: Continue the patient on p.o. antibiotic. Continue on low sodium diet. We will titrate the patient's antihypertensive medication. Continue statin medication. Continue with current care. Nutritional Asmnt/Malnutr-PDOC - Dietary Evaluation Malnutrition Findings (Please click <Entered> for more info): Nutritional Asmnt/Malnutrition Start: 01/22/19 14: 58 Text: Status: Complete Freq: Protocol: Document 01/22/19 14:58 MARIFER (Rec: 01/22/19 15:01 MARIFER [id number]) Nutritional Asmnt/Malnutrition Patient General Information Nutritional Screening Low Risk Diagnosis Depression Pertinent Medical Hx/Surgical Hx HTN, stroke with Lt sided weakness, CAD, status post pacemaker, dysphagia, hypercholesterolemia Subjective Information Pt is a 57-year-old female admitted on 01/16 from [facility]. Pt is eating an estimated 75% of meals x3 days (average) Per Meal/Nutrition Activity Record- adequate to meet estimated nutritional needs. Visited pt today at end of lunch. Pt was smiling when I walked in, she said hi. Pt had not eaten much lunch, I asked if lunch was OK, she said something incomprehensible. I continued to ask if she wanted something else, she stated the food was great. I let her know she can ask the nurse for anything else she may like. HT: 52 WT: 106 LB (48.18 kg) BMI: 19.39 (Normal) GI: Flat, Soft, Non-tender BM: 01/21 x2 I/O: 1510/1 (+1509) Skin: WNL, Intact Rolf: 15 Diet Order: Puremahad, MOLLY Estimated Energy Needs: ( Geriatric, CBW) 9194-4694 kcals (25-30 kcals/ kg) 48-58g Pro (1.0-1.2 g/kg) 6238-6477 ml (25-30 ml/kg) Pt is eating 75% of meals Per Meal/Nutrition Activity Record . Dietary is currently providing an estimated 2470 kcals and 102 gm Pro, per Pt PO intake this is providing an estimated 1850 kcals and 77gm Pro to meet 100+% kcal and 100+% Pro needs. Current Diet Order/ Nutrition Support Shahzad, MOLLY Pertinent Medications Lipitor, Dulcolax (PRN), Colace, MOM (PRN) Pertinent Labs 01/15: Hgb/Hct 11.1/33.5 Nutritional Hx/Data Height 1.57 m Height (Calculated Centimeters) 157.5 Current Weight (lbs) 48.081 kg Weight (Calculated Kilograms) 48.1 Weight (Calculated Grams) 09478.8 [place] Body Weight 110 LB (50kg) % [place] Body Weight 96 Body Mass Index (BMI) 19.3 Weight Status Approriate GI Symptoms GI Symptoms None Last BM 01/21 x2 Skin Integrity/Comment: Skin: WNL, Intact Rolf: 15 Current %PO Good (75-100%) Estimated Nutritional Goals BEE in Kcals: Using Current wt Calories/Kcals/Kg 25-30 Kcals Calculated 7307-4896 Protein: Using Current wt Protein g/k.0-1.2 Protein Calculated 48-58 Fluid: ml 9940-6879 ml (25-30 ml/kg) Nutritional Problem No current Nutrition Prob Problem No nutrition diagnosis at this time. Etiology N/A Signs/Symptoms: N/A Malnutrition Related to Morbid Obesity Malnutrition related to morbid obesity No Intervention/Recommendation Comments Continue with Shahzad MOLLY diet as ordered. Expected Outcomes/Goals Expected Outcomes/Goals 1. PO intake to continue to meet >75% of nutritional needs . 2. Monitor PO intake, wt, nutrition related labs, and skin integrity. 3. F/U as low risk in 7-10 days, 01/29-02/01
--- NOTE | 2019-01-27 02:04 | Progress Notes ---
DATE: SUBJECTIVE: Chart reviewed and the patient interviewed. Also discussed the patient's condition with the staff and reviewed records and labs. The patient is still confused and anxious. The patient also is still depressed and wants to be left alone and stays by herself in her room. She also still needs redirections and needs close observation because of her depression and psychosis. Otherwise, the patient is compliant with taking her medications and the patient is taking her Lexapro and Aricept with no side effects. ASSESSMENT: The patient is still depressed and psychotic. TREATMENT PLAN: Continue to monitor her behavior and her condition closely. Also, continue adjusting psychotropic medications and work on behavioral modification. JOB# [id number]
[2019-01-27] MEDS: Apixaban 5 MG TABLET PO SCH ×2 (09:59→17:34)
[2019-01-27] MEDS: Escitalopram Oxalate 5 mg Tab PO SCH (09:59)
[2019-01-27] MEDS: Atorvastatin Calcium 10 MG TAB PO SCH (09:59)
--- NOTE | 2019-01-27 14:06 | Internal Medicine Prog Note ---
Internal Medicine Subjective - Subjective Patient seen and examined:: with staff, chart reviewed Patient is:: awake, verbal, interactive, in bed Per staff patient has:: no adverse event, no episodes of fall, poor appetite, tolerating meds Internal Medicine Objective - Physical Exam Vitals and I&O: Vital Signs Temp 97.6 F 01/27/19 06:00 Pulse 60 01/27/19 10:00 Resp 20 01/27/19 06:00 BP 148/54 01/27/19 10:00 Pulse Ox 96 01/27/19 06:00 Active Medications: Current Medications Acetaminophen (Tylenol) 650 mg PO Q6H PRN PRN Reason: Mild Pain / Temp above 100 Stop: 03/17/19 01:57 Acetaminophen/Hydrocodone Bitart ([place] 5mg/325mg) 1 tab PO Q6H PRN PRN Reason: Pain (Moderate) Stop: 03/17/19 02:17 Atorvastatin Calcium (Lipitor) 20 mg PO DAILY [facility]; Protocol Stop: 03/17/19 08:59 Last Admin: 01/27/19 09:59 Dose: 20 mg Bisacodyl (Dulcolax 10 Mg Supp) 10 mg RC DAILY PRN PRN Reason: Constipation Stop: 03/17/19 02:12 Docusate Sodium (Colace) 100 mg PO BID [facility] Stop: 03/17/19 08:59 Last Admin: 01/27/19 09:59 Dose: 100 mg Donepezil HCl (Aricept) 5 mg PO HS [facility] Stop: 03/25/19 20:59 Last Admin: 01/26/19 20:55 Dose: 5 mg Escitalopram Oxalate (Lexapro) 5 mg PO DAILY [facility]; Protocol Stop: 03/17/19 08:59 Last Admin: 01/27/19 09:59 Dose: 5 mg Lorazepam (Ativan) 0.5 mg PO Q4HR PRN; Protocol PRN Reason: Anxiety Stop: 02/15/19 01:52 Last Admin: 01/20/19 11:14 Dose: 0.5 mg Magnesium Hydroxide (Milk Of Magnesia) 30 ml PO HS PRN PRN Reason: Constipation Metoprolol Tartrate (Lopressor) 25 mg PO BID [facility] Stop: 03/17/19 08:59 Last Admin: 01/27/19 10:00 Dose: 25 mg Zolpidem Tartrate (Ambien) 5 mg PO HS PRN PRN Reason: Insomnia Stop: 03/17/19 01:52 Last Admin: 01/23/19 20:30 Dose: 5 mg General: weak, thin, appears older HEENT: NC/AT, PERRLA, EOMI Neck: Supple, No JVD Lungs: CTAB Cardiovascular: RRR, Normal S1, Normal S2, with murmur Abdomen: soft, thin, non-distended, positive bowel sound Extremities: excoriation, contracture Neurological: no change - Procedures Procedures: Procedures Procedure Code Date GROUP PSYCHOTHERAPY 02285 02/28/15 GROUP PSYCHOTHERAPY GZHZZZZ 02/28/15 Internal Medicine Assmt/Plan - Assessment Assessment: ASSESSMENT AND PLAN: Urinary tract infection, dysphagia, anemia, hypertension, history of stroke with left-sided weakness, CAD, status post pacemaker, hypercholesterolemia. - Plan Plan: PLAN: Continue the patient on p.o. antibiotic. Continue on low sodium diet. We will titrate the patient's antihypertensive medication. Continue statin medication. Continue with current care. Nutritional Asmnt/Malnutr-PDOC - Dietary Evaluation Malnutrition Findings (Please click <Entered> for more info): Nutritional Asmnt/Malnutrition Start: 01/22/19 14: 58 Text: Status: Complete Freq: Protocol: Document 01/22/19 14:58 MARIFER (Rec: 01/22/19 15:01 MARIFER [id number]) Nutritional Asmnt/Malnutrition Patient General Information Nutritional Screening Low Risk Diagnosis Depression Pertinent Medical Hx/Surgical Hx HTN, stroke with Lt sided weakness, CAD, status post pacemaker, dysphagia, hypercholesterolemia Subjective Information Pt is a 57-year-old female admitted on 01/16 from longterm. Pt is eating an estimated 75% of meals x3 days (average) Per Meal/Nutrition Activity Record- adequate to meet estimated nutritional needs. Visited pt today at end of lunch. Pt was smiling when I walked in, she said hi. Pt had not eaten much lunch, I asked if lunch was OK, she said something incomprehensible. I continued to ask if she wanted something else, she stated the food was great. I let her know she can ask the nurse for anything else she may like. HT: 52 WT: 106 LB (48.18 kg) BMI: 19.39 (Normal) GI: Flat, Soft, Non-tender BM: 9/29 x2 I/O: 1510/1 (+1509) Skin: WNL, Intact Rolf: 15 Diet Order: Pureed, MOLLY Estimated Energy Needs: ( Geriatric, CBW) 7763-3814 kcals (25-30 kcals/ kg) 48-58g Pro (1.0-1.2 g/kg) 1694-5321 ml (25-30 ml/kg) Pt is eating 75% of meals Per Meal/Nutrition Activity Record . Dietary is currently providing an estimated 2470 kcals and 102 gm Pro, per Pt PO intake this is providing an estimated 1850 kcals and 77gm Pro to meet 100+% kcal and 100+% Pro needs. Current Diet Order/ Nutrition Support Pureed, MOLLY Pertinent Medications Lipitor, Dulcolax (PRN), Colace, MOM (PRN) Pertinent Labs 01/15: Hgb/Hct 11.1/33.5 Nutritional Hx/Data Height 1.57 m Height (Calculated Centimeters) 157.5 Current Weight (lbs) 48.081 kg Weight (Calculated Kilograms) 48.1 Weight (Calculated Grams) 90975.8 [place] Body Weight 110 LB (50kg) % [place] Body Weight 96 Body Mass Index (BMI) 19.3 Weight Status Approriate GI Symptoms GI Symptoms None Last BM 01/21 x2 Skin Integrity/Comment: Skin: WNL, Intact Rolf: 15 Current %PO Good (75-100%) Estimated Nutritional Goals BEE in Kcals: Using Current wt Calories/Kcals/Kg 25-30 Kcals Calculated 9744-4916 Protein: Using Current wt Protein g/k.0-1.2 Protein Calculated 48-58 Fluid: ml 3592-2275 ml (25-30 ml/kg) Nutritional Problem No current Nutrition Prob Problem No nutrition diagnosis at this time. Etiology N/A Signs/Symptoms: N/A Malnutrition Related to Morbid Obesity Malnutrition related to morbid obesity No Intervention/Recommendation Comments Continue with Pureed, MOLLY diet as ordered. Expected Outcomes/Goals Expected Outcomes/Goals 1. PO intake to continue to meet >75% of nutritional needs . 2. Monitor PO intake, wt, nutrition related labs, and skin integrity. 3. F/U as low risk in 7-10 days, 01/29-02/01
--- NOTE | 2019-01-28 00:31 | Progress Notes ---
DATE: SUBJECTIVE: Chart reviewed and the patient interviewed. Also discussed the patient's condition with the staff and reviewed records and labs. The patient is still selectively taking her medications and compliance with medications is an issue. The patient also is still confused and forgetful and seems to be preoccupied. The patient also needs lots of redirections. Forgetful. Otherwise, the patient has no side effects of medications. ASSESSMENT: The patient is still confused and forgetful. TREATMENT PLAN: Continue monitoring behavior and condition and continue adjusting medications and work on discharge plans. JOB# [id number]
[2019-01-28] MEDS: Apixaban 5 MG TABLET PO SCH ×2 (09:36→16:38)
[2019-01-28] MEDS: Escitalopram Oxalate 5 mg Tab PO SCH (09:37)
[2019-01-28] MEDS: Atorvastatin Calcium 10 MG TAB PO SCH (09:37)
--- NOTE | 2019-01-28 12:13 | Internal Medicine Prog Note ---
Internal Medicine Subjective - Subjective Patient seen and examined:: with staff, chart reviewed Patient is:: awake, verbal, interactive, in bed Per staff patient has:: no adverse event, no episodes of fall, poor appetite, tolerating meds Internal Medicine Objective - Physical Exam Vitals and I&O: Vital Signs Temp 97.8 F 01/28/19 06:12 Pulse 60 01/28/19 09:36 Resp 16 01/28/19 08:00 BP 131/65 01/28/19 09:36 Pulse Ox 98 01/28/19 06:12 Intake & Output 01/27/19 01/28/19 01/28/19 18:59 06:59 18:59 Intake Total 60 Balance 60 Intake: Oral 60 Other: # Voids 3 Active Medications: Current Medications Acetaminophen (Tylenol) 650 mg PO Q6H PRN PRN Reason: Mild Pain / Temp above 100 Stop: 03/17/19 01:57 Acetaminophen/Hydrocodone Bitart ([place] 5mg/325mg) 1 tab PO Q6H PRN PRN Reason: Pain (Moderate) Stop: 03/17/19 02:17 Atorvastatin Calcium (Lipitor) 20 mg PO DAILY [facility]; Protocol Stop: 03/17/19 08:59 Last Admin: 01/28/19 09:37 Dose: 20 mg Bisacodyl (Dulcolax 10 Mg Supp) 10 mg RC DAILY PRN PRN Reason: Constipation Stop: 03/17/19 02:12 Docusate Sodium (Colace) 100 mg PO BID [facility] Stop: 03/17/19 08:59 Last Admin: 01/28/19 09:35 Dose: 100 mg Donepezil HCl (Aricept) 5 mg PO HS [facility] Stop: 03/25/19 20:59 Last Admin: 01/27/19 21:31 Dose: 5 mg Escitalopram Oxalate (Lexapro) 5 mg PO DAILY [facility]; Protocol Stop: 03/17/19 08:59 Last Admin: 01/28/19 09:37 Dose: 5 mg Lorazepam (Ativan) 0.5 mg PO Q4HR PRN; Protocol PRN Reason: Anxiety Stop: 02/15/19 01:52 Last Admin: 01/20/19 11:14 Dose: 0.5 mg Magnesium Hydroxide (Milk Of Magnesia) 30 ml PO HS PRN PRN Reason: Constipation Metoprolol Tartrate (Lopressor) 25 mg PO BID [facility] Stop: 03/17/19 08:59 Last Admin: 01/28/19 09:36 Dose: 25 mg Zolpidem Tartrate (Ambien) 5 mg PO HS PRN PRN Reason: Insomnia Stop: 03/17/19 01:52 Last Admin: 01/23/19 20:30 Dose: 5 mg General: weak, thin, appears older HEENT: NC/AT, PERRLA, EOMI Neck: Supple, No JVD Lungs: CTAB Cardiovascular: RRR, Normal S1, Normal S2, with murmur Abdomen: soft, thin, non-distended, positive bowel sound Extremities: excoriation, contracture Neurological: no change - Procedures Procedures: Procedures Procedure Code Date GROUP PSYCHOTHERAPY 77797 02/28/15 GROUP PSYCHOTHERAPY GZHZZZZ 02/28/15 Internal Medicine Assmt/Plan - Assessment Assessment: ASSESSMENT AND PLAN: Urinary tract infection, dysphagia, anemia, hypertension, history of stroke with left-sided weakness, CAD, status post pacemaker, hypercholesterolemia. - Plan Plan: PLAN: Continue the patient on p.o. antibiotic. Continue on low sodium diet. We will titrate the patient's antihypertensive medication. Continue statin medication. Continue with current care. Nutritional Asmnt/Malnutr-PDOC - Dietary Evaluation Malnutrition Findings (Please click <Entered> for more info): Nutritional Asmnt/Malnutrition Start: 01/22/19 14: 58 Text: Status: Complete Freq: Protocol: Document 01/22/19 14:58 MARIFER (Rec: 01/22/19 15:01 MARIFER [id number]) Nutritional Asmnt/Malnutrition Patient General Information Nutritional Screening Low Risk Diagnosis Depression Pertinent Medical Hx/Surgical Hx HTN, stroke with Lt sided weakness, CAD, status post pacemaker, dysphagia, hypercholesterolemia Subjective Information Pt is a 57-year-old female admitted on 01/16 from skilled nursing. Pt is eating an estimated 75% of meals x3 days (average) Per Meal/Nutrition Activity Record- adequate to meet estimated nutritional needs. Visited pt today at end of lunch. Pt was smiling when I walked in, she said hi. Pt had not eaten much lunch, I asked if lunch was OK, she said something incomprehensible. I continued to ask if she wanted something else, she stated the food was great. I let her know she can ask the nurse for anything else she may like. HT: 52 WT: 106 LB (48.18 kg) BMI: 19.39 (Normal) GI: Flat, Soft, Non-tender BM: 01/21 x2 I/O: 1510/1 (+1509) Skin: WNL, Intact Rolf: 15 Diet Order: Pureed, MOLLY Estimated Energy Needs: ( Geriatric, CBW) 5884-7456 kcals (25-30 kcals/ kg) 48-58g Pro (1.0-1.2 g/kg) 1499-0134 ml (25-30 ml/kg) Pt is eating 75% of meals Per Meal/Nutrition Activity Record . Dietary is currently providing an estimated 2470 kcals and 102 gm Pro, per Pt PO intake this is providing an estimated 1850 kcals and 77gm Pro to meet 100+% kcal and 100+% Pro needs. Current Diet Order/ Nutrition Support Pureed, MOLLY Pertinent Medications Lipitor, Dulcolax (PRN), Colace, MOM (PRN) Pertinent Labs 01/15: Hgb/Hct 11.1/33.5 Nutritional Hx/Data Height 1.57 m Height (Calculated Centimeters) 157.5 Current Weight (lbs) 48.081 kg Weight (Calculated Kilograms) 48.1 Weight (Calculated Grams) 03427.8 [place] Body Weight 110 LB (50kg) % [place] Body Weight 96 Body Mass Index (BMI) 19.3 Weight Status Approriate GI Symptoms GI Symptoms None Last BM 01/21 x2 Skin Integrity/Comment: Skin: WNL, Intact Rolf: 15 Current %PO Good (75-100%) Estimated Nutritional Goals BEE in Kcals: Using Current wt Calories/Kcals/Kg 25-30 Kcals Calculated 5106-3054 Protein: Using Current wt Protein g/k.0-1.2 Protein Calculated 48-58 Fluid: ml 0355-3664 ml (25-30 ml/kg) Nutritional Problem No current Nutrition Prob Problem No nutrition diagnosis at this time. Etiology N/A Signs/Symptoms: N/A Malnutrition Related to Morbid Obesity Malnutrition related to morbid obesity No Intervention/Recommendation Comments Continue with Pureed, MOLLY diet as ordered. Expected Outcomes/Goals Expected Outcomes/Goals 1. PO intake to continue to meet >75% of nutritional needs . 2. Monitor PO intake, wt, nutrition related labs, and skin integrity. 3. F/U as low risk in 7-10 days, 01/29-02/01
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
--- NOTE | 2019-01-29 07:46 | Progress Notes ---
DATE: SUBJECTIVE: Chart reviewed and the patient interviewed. Also discussed the patient's condition with the staff and reviewed records and labs. The patient is still anxious and is still in irritable mood and depressed. The patient also seems to be preoccupied and needs lots of redirections. Also at times, the patient is guarded and withdrawn. Otherwise, the patient continued to comply with taking Lexapro and Aricept with no side effects. ASSESSMENT: The patient is still anxious and still somehow depressed and paranoid. TREATMENT PLAN: Continue monitoring behavior and condition closely. Also, continue working on her behavior and continue to follow up. JOB# [id number]
[2019-01-29] MEDS: Atorvastatin Calcium 10 MG TAB PO SCH (09:11)
[2019-01-29] MEDS: Apixaban 5 MG TABLET PO SCH (09:11)
[2019-01-29] MEDS: Escitalopram Oxalate 5 mg Tab PO SCH (09:12)
--- NOTE | 2019-01-29 12:11 | Internal Medicine Prog Note ---
Internal Medicine Subjective - Subjective Patient seen and examined:: with staff, chart reviewed Patient is:: awake, verbal, interactive, in bed Per staff patient has:: no adverse event, no episodes of fall, poor appetite, tolerating meds Internal Medicine Objective - Physical Exam Vitals and I&O: Vital Signs Temp 97.1 F 01/29/19 06:14 Pulse 61 01/29/19 09:12 Resp 18 01/29/19 06:14 BP 146/67 01/29/19 09:12 Pulse Ox 96 01/29/19 06:14 Intake & Output 01/28/19 01/29/19 01/29/19 18:59 06:59 18:59 Intake Total 960 240 Balance 960 240 Intake: Oral 960 240 Other: # Voids 3 2 # Bowel Movements 1 0 Active Medications: Current Medications Acetaminophen (Tylenol) 650 mg PO Q6H PRN PRN Reason: Mild Pain / Temp above 100 Stop: 03/17/19 01:57 Acetaminophen/Hydrocodone Bitart ([place] 5mg/325mg) 1 tab PO Q6H PRN PRN Reason: Pain (Moderate) Stop: 03/17/19 02:17 Atorvastatin Calcium (Lipitor) 20 mg PO DAILY [facility]; Protocol Stop: 03/17/19 08:59 Last Admin: 01/29/19 09:11 Dose: 20 mg Bisacodyl (Dulcolax 10 Mg Supp) 10 mg RC DAILY PRN PRN Reason: Constipation Stop: 03/17/19 02:12 Docusate Sodium (Colace) 100 mg PO BID [facility] Stop: 03/17/19 08:59 Last Admin: 01/29/19 09:12 Dose: 100 mg Donepezil HCl (Aricept) 5 mg PO HS [facility] Stop: 03/25/19 20:59 Last Admin: 01/28/19 21:18 Dose: 5 mg Escitalopram Oxalate (Lexapro) 5 mg PO DAILY [facility]; Protocol Stop: 03/17/19 08:59 Last Admin: 01/29/19 09:12 Dose: 5 mg Lorazepam (Ativan) 0.5 mg PO Q4HR PRN; Protocol PRN Reason: Anxiety Stop: 02/15/19 01:52 Last Admin: 01/20/19 11:14 Dose: 0.5 mg Magnesium Hydroxide (Milk Of Magnesia) 30 ml PO HS PRN PRN Reason: Constipation Metoprolol Tartrate (Lopressor) 25 mg PO BID [facility] Stop: 03/17/19 08:59 Last Admin: 01/29/19 09:12 Dose: 25 mg Zolpidem Tartrate (Ambien) 5 mg PO HS PRN PRN Reason: Insomnia Stop: 03/17/19 01:52 Last Admin: 01/23/19 20:30 Dose: 5 mg General: weak, thin, appears older HEENT: NC/AT, PERRLA, EOMI Neck: Supple, No JVD Lungs: CTAB Cardiovascular: RRR, Normal S1, Normal S2, with murmur Abdomen: soft, thin, non-distended, positive bowel sound Extremities: excoriation, contracture Neurological: no change - Procedures Procedures: Procedures Procedure Code Date GROUP PSYCHOTHERAPY 50103 02/28/15 GROUP PSYCHOTHERAPY GZHZZZZ 02/28/15 Internal Medicine Assmt/Plan - Assessment Assessment: ASSESSMENT AND PLAN: Urinary tract infection, dysphagia, anemia, hypertension, history of stroke with left-sided weakness, CAD, status post pacemaker, hypercholesterolemia. - Plan Plan: PLAN: Continue the patient on p.o. antibiotic. Continue on low sodium diet. We will titrate the patient's antihypertensive medication. Continue statin medication. Continue with current care. Nutritional Asmnt/Malnutr-PDOC - Dietary Evaluation Malnutrition Findings (Please click <Entered> for more info): Nutritional Asmnt/Malnutrition Start: 01/22/19 14: 58 Text: Status: Complete Freq: Protocol: Document 01/22/19 14:58 MARIFER (Rec: 01/22/19 15:01 MARIFER [id number]) Nutritional Asmnt/Malnutrition Patient General Information Nutritional Screening Low Risk Diagnosis Depression Pertinent Medical Hx/Surgical Hx HTN, stroke with Lt sided weakness, CAD, status post pacemaker, dysphagia, hypercholesterolemia Subjective Information Pt is a 57-year-old female admitted on 01/16 from [facility]. Pt is eating an estimated 75% of meals x3 days (average) Per Meal/Nutrition Activity Record- adequate to meet estimated nutritional needs. Visited pt today at end of lunch. Pt was smiling when I walked in, she said hi. Pt had not eaten much lunch, I asked if lunch was OK, she said something incomprehensible. I continued to ask if she wanted something else, she stated the food was great. I let her know she can ask the nurse for anything else she may like. HT: 52 WT: 106 LB (48.18 kg) BMI: 19.39 (Normal) GI: Flat, Soft, Non-tender BM: 01/21 x2 I/O: 1510/1 (+1509) Skin: WNL, Intact Rolf: 15 Diet Order: Pureed, MOLLY Estimated Energy Needs: ( Geriatric, CBW) 4682-7970 kcals (25-30 kcals/ kg) 48-58g Pro (1.0-1.2 g/kg) 3098-5211 ml (25-30 ml/kg) Pt is eating 75% of meals Per Meal/Nutrition Activity Record . Dietary is currently providing an estimated 2470 kcals and 102 gm Pro, per Pt PO intake this is providing an estimated 1850 kcals and 77gm Pro to meet 100+% kcal and 100+% Pro needs. Current Diet Order/ Nutrition Support Pureed, MOLLY Pertinent Medications Lipitor, Dulcolax (PRN), Colace, MOM (PRN) Pertinent Labs 01/15: Hgb/Hct 11.1/33.5 Nutritional Hx/Data Height 1.57 m Height (Calculated Centimeters) 157.5 Current Weight (lbs) 48.081 kg Weight (Calculated Kilograms) 48.1 Weight (Calculated Grams) 19735.8 [place] Body Weight 110 LB (50kg) % [place] Body Weight 96 Body Mass Index (BMI) 19.3 Weight Status Approriate GI Symptoms GI Symptoms None Last BM 01/21 x2 Skin Integrity/Comment: Skin: WNL, Intact Rolf: 15 Current %PO Good (75-100%) Estimated Nutritional Goals BEE in Kcals: Using Current wt Calories/Kcals/Kg 25-30 Kcals Calculated 2984-6577 Protein: Using Current wt Protein g/k.0-1.2 Protein Calculated 48-58 Fluid: ml 6650-7089 ml (25-30 ml/kg) Nutritional Problem No current Nutrition Prob Problem No nutrition diagnosis at this time. Etiology N/A Signs/Symptoms: N/A Malnutrition Related to Morbid Obesity Malnutrition related to morbid obesity No Intervention/Recommendation Comments Continue with Pureed, MOLLY diet as ordered. Expected Outcomes/Goals Expected Outcomes/Goals 1. PO intake to continue to meet >75% of nutritional needs . 2. Monitor PO intake, wt, nutrition related labs, and skin integrity. 3. F/U as low risk in 7-10 days, 01/29-02/01
== END 2019-01-29 14:00 | DRG 885 ==
LOC: GERO 01-16 00:30
PROVIDERS: ADMIT Psychiatry & Neurology Psychiatry; ATTEND Psychiatry & Neurology Psychiatry
DX: F39 Unspecified mood [affective] disorder (principal); N39.0 Urinary tract infection, site not specified; I69.354 Hemiplegia and hemiparesis following cerebral infarction affecting left non-dominant side; R13.10 Dysphagia, unspecified; D64.9 Anemia, unspecified; I10 Essential (primary) hypertension; F32.9 Major depressive disorder, single episode, unspecified; I25.10 Atherosclerotic heart disease of native coronary artery without angina pectoris; E78.00 Pure hypercholesterolemia, unspecified; R41.9 Unspecified symptoms and signs involving cognitive functions and awareness; Z88.0 Allergy status to penicillin; Z95.0 Presence of cardiac pacemaker
CPT/HCPCS: G0410; Z7610